=== PATIENT | female | born 1985 | race Caucasian/White ===

== ENCOUNTER → 2016-07-15 | Outpatient (CLI) | payer BC | END | disposition home or self-care (01) | LOC: LABMAIN 14:32 | PROVIDERS: ATTEND Obstetrics & Gynecology | DX: Z53.9 Procedure and treatment not carried out, unspecified reason (principal) ==

== ENCOUNTER → 2016-07-17 | Outpatient (CLI) | payer BC ==
[2016-07-17 16:05] LABS: CH 33.7; CHCM 35.3; HCT 38.5 % (34.0-46.0); HDW 3.06; HGB 13.2 gm/dL (11.4-16.0); MCHC 34.3 g/dL (31.0-37.0); MCV 96.2 fL (80.0-100.0); Mean Platelet Volume 7.1; RDW 14.1 % (11.5-15.5); WBC 11.5 k/uL (3.8-10.6)
== END | disposition home or self-care (01) ==
LOC: LABWHC1 14:30
PROVIDERS: ATTEND Obstetrics & Gynecology
DX: Z34.92 Encounter for supervision of normal pregnancy, unspecified, second trimester (principal); Z3A.00 Weeks of gestation of pregnancy not specified
CPT/HCPCS: 36415; 82950; 85027

== ENCOUNTER → 2016-09-13 | Outpatient (CLI) | payer BC ==
--- NOTE | 2016-09-13 16:46 | US ---
EXAMINATION TYPE: US OB anatomy transabd DATE OF EXAM: 09/13/2016 3:49 PM COMPARISON: No previous HISTORY: O36.63X0 Large for dates LGA, 2, para 1 TECHNIQUE: Transabdominal (TA) EXAM MEASUREMENTS: GESTATIONAL AGE / DATING Physician Established: (35 weeks/1 days) EDC: 10/17/2016 Dates by LMP: Unknown Dates by First Scan: No previous here Dates by Current Scan for: (34 weeks/4 days) EDC: 10/21/2016 SURVEY IUP: Single PLACENTA: Fundal PREVIA: No previa ARUNA: 13.3 cm Normal CERVICAL LENGTH (transabdominal: norm > 3.0cm): 4.1 cm BIOMETRY PRESENTATION: Vertex LIE: Oblique BPD: 8.6 cm 34 weeks / 5 days HC: 30.9 cm 34 weeks / 4 days AC: 30.8 cm 34 weeks / 5 days FL: 6.9 cm 35 weeks / 3 days ESTIMATED WEIGHT IN GRAMS: 2536 grams ESTIMATED WEIGHT IN LBS/OZS: 5 lbs. 9 oz. WEIGHT PERCENTAGE BASED ON ESTABLISHED DATE: 39 % HC/AC: 1.00 Normal FL/AC: 22.37 Normal HEART RATE: 142 bpm RHYTHM: Normal ANATOMY SEEN (within normal limits): Midline Falx Cavus Septi Pellucidi Outflow tracts: RVOT Stomach Situs Nose / Lips Kidneys (bilateral) Bladder Three Vessel Cord Longitudinal Spine Transverse Spine ANATOMY NOT SEEN: Due to advanced age * Lateral Vent (< 1 cm) cm * Cisterna Magna (< 1.1 cm) cm * Nuchal Fold (< 0.6 cm) cm * Cerebellum (varies with age) cm Choroid Plexus (bilateral) Four Chamber Heart Outflow Tracts: LVOT Diaphragm Cord Insert Arms (bilateral) Legs (bilateral) IMPRESSION: Viable single IUP measuring 34 weeks 4 days with a heart rate of 142bpm and an estimated delivery edilberto e of 10/21/2016
== END | disposition home or self-care (01) ==
LOC: RADUSWWP 15:09
PROVIDERS: ATTEND Obstetrics & Gynecology
DX: O36.63X0 Maternal care for excessive fetal growth, third trimester, not applicable or unspecified (principal); Z3A.34 34 weeks gestation of pregnancy
CPT/HCPCS: 76811

== ENCOUNTER 2016-10-17 05:48 | Inpatient (IN) | payer BC ==
[2016-10-17] MEDS: LACTATED RINGERS 1,000 ML IV SCH ×3 (06:00→17:38)
[2016-10-17] MEDS ORDERED: LIDOCAINE 1% (PF) 10 MG/ML (30 ML SDV) SQ PRN (06:05)
[2016-10-17] MEDS ORDERED: METHYLERGONOVINE 0.2 MG/ML 1 ML AMP IM PRN (06:05)
[2016-10-17] MEDS ORDERED: OXYTOCIN 10 UNIT/ML 1 ML VIAL IM PRN (06:05)
[2016-10-17] MEDS ORDERED: TERBUTALINE 1 MG/ML VIAL SQ PRN (06:05)
[2016-10-17] MEDS ORDERED: CARBOPROST TROMETHAMINE 250 MCG/ML 1 ML AMP IM PRN (06:05)
[2016-10-17 06:21] VITALS: BMI 36.3
--- NOTE | 2016-10-17 06:23 | P.HPOB ---
History of Present Illness H&P Date: 10/17/16 Chief Complaint: Patient is requesting induction of labor This patient is a pleasant 31-year-old 2 para 1 female estimated date of confinement 10/17/2016 estimated gestational age 40-0/7 weeks who presents to labor and delivery for requested induction of labor. Patient's care has been uncomplicated. Patient is uncomfortable now wishes to proceed with delivery at this time. Review of Systems Constitutional: Denies chills, Denies fever Ears, nose, mouth and throat: Denies headache, Denies sore throat Cardiovascular: Denies chest pain, Denies shortness of breath Respiratory: Denies cough Gastrointestinal: Reports heartburn Genitourinary: Reports Menstruation: Reports amenorrhea Musculoskeletal: Denies myalgias Integumentary: Denies pruritus, Denies rash Neurological: Denies numbness, Denies weakness Past Medical History Additional Past Medical History / Comment(s): Patient has a history of migraine headaches. History of Any Multi-Drug Resistant Organisms: None Reported Past Surgical History: Orthopedic Surgery Additional Past Surgical History / Comment(s): Patient has had sinus surgery, and reconstruction surgery of her right knee Past Anesthesia/Blood Transfusion Reactions: No Reported Reaction Past Psychological History: No Psychological Hx Reported Smoking Status: Former smoker Past Alcohol Use History: None Reported Past Drug Use History: None Reported Medications and Allergies Allergies Allergy/AdvReac Type Severity Reaction Status Date / Time Latex, Natural Rubber Allergy Itching Verified 10/17/16 06:05 Exam - Vital Signs Vital signs: Intake and Output 10/16/16 10/16/16 10/17/16 14:59 22:59 06:59 Other: Weight 102.058 kg Patient Weight 10/17/16 06:59 Weight 102.058 kg - OBG Physical Exam Abdomen: bowel sounds normal, no diffuse tenderness, no bruit present, no guarding noted, no hepatomegaly, no splenomegaly, no mass Vulva: both: normal Vagina: normal moisture, no discharge Cervix: Cervix is 2-3 cm dilated 50% effaced. Cervix: no lesion, no discharge Uterus: enlarged (Fundal height is consistent with a term .) Results blood work shows she is O positive, rubella immune, RPR nonreactive, HIV nonreactive, hepatitis B is negative, Glucola was normal, ultrasounds have been normal, group B strep was negative Assessment and Plan (1) Third trimester Narrative/Plan: This is a pleasant 31-year-old 2 para 1 female 40-0/7 weeks gestation who presents to labor and delivery for requested induction of labor. Plan is induction of labor and anticipate vaginal delivery. Status: Acute (2) Elective induction of labor planned Status: Acute
[2016-10-17 06:41] LABS: Basophils % (A) 0 %; CH 34.1; CHCM 36.9; Eosinophils # (A) 0.1 k/uL (0-0.7); Eosinophils % (A) 1 %; HCT 40.3 % (34.0-46.0); HDW 3.12; HGB 14.4 gm/dL (11.4-16.0); Luc # (Auto) 0.15; Luc % (Auto) 2; Lymphocytes # (A) 1.9 k/uL (1.0-4.8); Lymphocytes % (A) 22 %; MCH 33.2 pg (25.0-35.0); MCHC 35.7 g/dL (31.0-37.0); MCV 93.1 fL (80.0-100.0); Mean Platelet Volume 7.1; Monocytes # (A) 0.4 k/uL (0-1.0); Monocytes % (A) 5 %; Neutrophils % (A) 70 %; RBC 4.33 m/uL (3.80-5.40); RDW 13.2 % (11.5-15.5); WBC 8.6 k/uL (3.8-10.6); WBC (Perox) 8.43
[2016-10-17] MEDS: OXYTOCIN 20 UNITS/1000 ML NS 1,000 ML IV SCH ×2 (06:45→20:04)
--- NOTE | 2016-10-17 06:49 | P.PNOBGPC ---
Subjective - Subjective Patient reports: Reports appetite normal, Reports voiding normally, Reports pain well controlled, Reports ambulating normally [place]: doing well Objective - Vital Signs Latest vital signs: Vital Signs Temp Pulse Resp BP 10/17/16 06:04 97.4 F L 96 16 132/71 Intake and Output 10/16/16 10/16/16 10/17/16 14:59 22:59 06:59 Other: Weight 102.058 kg Patient Weight 10/17/16 06:59 Weight 102.058 kg - Exam Lungs: bilateral: normal Chest: Normal S1, Normal S2 Extremities: Present: normal Abdomen: Present: normal appearance, soft. Absent: distention, tenderness Incision: Present: normal, dry, intact Uterus: Present: normal, firm Assessment and Plan (1) Third trimester Narrative/Plan: Post operative day #1. Patient is resting without complaints. Vital signs are stable and she is afebrile. Her incision is intact and dry. Plan today is to check a CBC, encouraged patient to ambulate, allow the patient to shower, and continue routine postoperative care. Current Visit: Yes Status: Acute Code(s): Z33.1 - STATE, INCIDENTAL SNOMED Code(s): 80688680 (2) Elective induction of labor planned Current Visit: Yes Status: Acute Code(s): PVG3462 - SNOMED Code(s): 351274169
[2016-10-17] MEDS ORDERED: BUTORPHANOL 1 MG/ML 1 ML VIAL IV PRN (15:24)
[2016-10-17] MEDS ORDERED: fentaNYL (PF) 50 MCG/ML 5 ML AMP ONE (17:09)
[2016-10-17] MEDS ORDERED: BUPIVACAINE (PF) 0.25% 30 ML VIAL ONE (17:09)
[2016-10-17] MEDS ORDERED: SODIUM CHLORIDE 0.9% 100 ML BAG ONE (17:09)
--- NOTE | 2016-10-17 19:24 | P.PROBDLV ---
Vaginal Delivery Note - . Vaginal Delivery Note: Normal vaginal delivery viable male infant Apgars 9 and 10 delivery time is 1914 hrs. Please see dictated H&P for intimate details of this patient's admission. Brief summary this is a 31-year-old 2 para 1 female 40-0/7 weeks gestation who is admitted to labor and delivery for elective induction of labor. She was 3 cm dilated has artificial rupture membranes for clear fluid. Labor is induced with Pitocin per protocol. Patient ambulates she then becomes uncomfortable and received one dose of intrapartum Stadol. She progresses to 5 cm and then does request an epidural for pain control. Patient thereafter quickly gets to complete pushes the head to the perineum. Posterior perineum is supported we have controlled delivery of the 's head over the intact perineum. Mouth and nares are bulb suctioned. There is a nuchal cord which is easily reduced. With gentle downward traction we have delivery the anterior and posterior shoulder and rest this infant's body. This is a vigorous viable male infant Apgars are 9 and 10 delivery time is 1910 hrs. After delivery of the the umbilical cord is doubly clamped and cut appears to be trivascular. The placenta is then spontaneously delivered intact. Estimated blood loss is 100 mL. There is no lacerations and no repair. Infant and mother are stable delivery room. All counts are correct 3. There are no complications.
[2016-10-17] MEDS ORDERED: BENZOCAINE/MENTHOL SPRAY 1 GM/SPRAY AEROSOL TOPICAL PRN (20:00)
[2016-10-17] MEDS ORDERED: diphenhydrAMINE 25 MG CAP PO PRN (20:00)
[2016-10-17] MEDS ORDERED: ACETAMINOPHEN TAB 325 MG TAB PO PRN (20:00)
[2016-10-17] MEDS ORDERED: ZOLPIDEM 5 MG TAB PO PRN (20:00)
[2016-10-17] MEDS ORDERED: Acetaminophen-Codeine 300-30mg TAB PO PRN (20:00)
[2016-10-17] MEDS ORDERED: BISACODYL 10 MG SUPP RECTAL PRN (20:00)
[2016-10-17] MEDS ORDERED: diphenhydrAMINE 50 MG/ML 1 ML VIAL IVP PRN (20:00)
[2016-10-17] MEDS ORDERED: HYDROCORTISONE 2.5% RECTAL CREAM 30 GM TUBE RECTAL PRN (20:00)
[2016-10-17] MEDS ORDERED: SIMETHICONE 80 MG CHEWABLE PO PRN (20:00)
[2016-10-17] MEDS ORDERED: WITCH HAZEL 1 EACH MED..PAD TOPICAL PRN (20:00)
[2016-10-17] MEDS ORDERED: LANOLIN CREAM 5 GM TUBE TOPICAL PRN (20:00)
[2016-10-17] MEDS: SENNOSIDES-DOCUSATE SODIUM 1 EACH TAB PO SCH (21:09)
--- NOTE | 2016-10-18 05:49 | P.PNOBGVD ---
Subjective - Subjective Patient reports: Reports appetite normal, Reports voiding normally, Reports pain well controlled, Reports ambulating normally : doing well Objective - Latest Vital Signs Latest vital signs: Vital Signs Temp Pulse Resp BP 10/18/16 04:00 98.2 F 59 L 16 124/80 10/18/16 00:00 98.1 F 68 16 125/87 10/17/16 21:15 98.5 F 74 16 115/55 10/17/16 20:45 77 16 123/72 10/17/16 20:15 61 16 119/65 10/17/16 20:00 68 16 111/64 10/17/16 19:45 80 16 111/59 10/17/16 19:30 98.6 F 82 16 135/67 10/17/16 19:15 87 16 134/66 10/17/16 06:04 97.4 F L 96 16 132/71 Intake and Output 10/17/16 10/17/16 10/18/16 14:59 22:59 06:59 Intake Total 1000 1039.95 Output Total 100 Balance 1000 939.95 Intake: IV 1000 1000 Lactated Ringers 1,000 ml 1000 1000 @ 125 mls/hr IV .Q8H PAM Rx#:[id number] Intake, IV Titration 39.95 Amount Oxytocin 20 Units/1000 ml 39.95 Ns 1,000 ml @ 1 MILLIUNIT/MIN 3 mls/hr IV .Q24H PAM Rx#:[id number] Output: Estimated Blood Loss 100 Other: # Voids 1 - Exam Lungs: bilateral: normal Chest: Normal S1, Normal S2 Extremities: Present: normal Abdomen: Present: normal appearance, soft Uterus: Present: normal, firm Assessment and Plan (1) Third trimester Narrative/Plan: day #1. Patient is resting without complaints and wishes to go home. Vital signs are stable and she is afebrile. Uterus is firm nontender she 's having normal lochia. My impression this is a normal course. Plan is to continue routine care discharge home later today. Current Visit: Yes Status: Acute Code(s): Z33.1 - STATE, INCIDENTAL SNOMED Code(s): 44259175 (2) Elective induction of labor planned Current Visit: Yes Status: Acute Code(s): SVO7679 - SNOMED Code(s): 793100933
--- NOTE | 2016-10-18 05:51 | P.DS ---
Providers Date of admission: 10/17/16 05:48 Expected date of discharge: 10/18/16 Attending physician: Wily Schwab Primary care physician: Pillo Barbosa - Discharge Diagnosis(es) (1) Third trimester Current Visit: Yes Status: Acute (2) Elective induction of labor planned Current Visit: Yes Status: Acute Hospital Course: Please see dictated H&P for intimate details of this patient's admission. Brief summary this is a pleasant 31-year-old 2 para 1 female 40 weeks gestation admitted for elective induction of labor. Patient goes on to have a vaginal delivery viable male infant. Please see dictated delivery note. On day #1 patient without complaints and she wishes to go home. Patient 's felt to be stable for discharge home follow up with me in 6 weeks. Procedures: Induction of labor and normal vaginal delivery. Patient Condition at Discharge: Good Plan - Discharge Summary New Discharge Prescriptions: Acetaminophen-Codeine 300-30mg [Tylenol w/codeine #3] 1 - 2 each PO Q4HR PRN # 30 tab PRN Reason: Mild Pain exceeding Tylenol Ibuprofen [Motrin] 600 mg PO Q6HR PRN #40 tab PRN Reason: Mild Pain Or Fever >= 100.5 Discharge Medication List Acetaminophen-Codeine 300-30mg [Tylenol w/codeine #3] 1 - 2 each PO Q4HR PRN # 30 tab 10/18/16 [Rx] Ibuprofen [Motrin] 600 mg PO Q6HR PRN #40 tab 10/18/16 [Rx] Follow up Appointment(s)/Referral(s): Wily Schwab MD [STAFF PHYSICIAN] - 6 Weeks Patient Instructions/Handouts: Vaginal Delivery (DC) Activity/Diet/Wound Care/Special Instructions: No intercourse or anything per vagina for 6 weeks. Please call if any fever, chills, excessive vaginal bleeding, and/or abdominal pain. Discharge Disposition: HOME SELF-CARE
[2016-10-18] MEDS: Acetaminophen-Codeine 300-30mg TAB PO PRN ×3 (07:48→21:06)
[2016-10-18] MEDS: SENNOSIDES-DOCUSATE SODIUM 1 EACH TAB PO SCH ×2 (07:49→19:27)
[2016-10-18] MEDS: IBUPROFEN 600 MG TAB PO PRN ×2 (12:16→19:27)
[2016-10-18 20:46] VITALS: BP 138/80; PULSE 86; RESP 18; TEMP 98
== END 2016-10-18 23:00 | disposition home or self-care (01) | DRG 775 ==
LOC: 4FBP 05:48
PROVIDERS: ADMIT Obstetrics & Gynecology; ATTEND Obstetrics & Gynecology
PROC: 10907ZC Drainage of Amniotic Fluid, Therapeutic from Products of Conception, Via Natural or Artificial Opening (ICD-10-PCS; principal; 2016-10-17)
PROC: 00HU33Z Insertion of Infusion Device into Spinal Canal, Percutaneous Approach (ICD-10-PCS; principal; 2016-10-17)
PROC: 3E033VJ Introduction of Other Hormone into Peripheral Vein, Percutaneous Approach (ICD-10-PCS; principal; 2016-10-17)
PROC: 3E0R3CZ (ICD-10-PCS; principal; 2016-10-17)
PROC: 10E0XZZ Delivery of Products of Conception, External Approach (ICD-10-PCS; principal; 2016-10-17)
DX: O48.0 Post-term pregnancy (principal); O69.81X0 Labor and delivery complicated by cord around neck, without compression, not applicable or unspecified; Z91.040 Latex allergy status; Z37.0 Single live birth; Z87.891 Personal history of nicotine dependence; Z3A.40 40 weeks gestation of pregnancy
CPT/HCPCS: 85025; 88307

== ENCOUNTER → 2021-02-23 | Outpatient (CLI) | payer BC ==
[2021-02-23 10:40] LABS: HCT 38.2 % (34.0-46.0); HGB 12.5 gm/dL (11.4-16.0); MCH 29.4 pg (25.0-35.0); MCHC 32.9 g/dL (31.0-37.0); MCV 89.5 fL (80.0-100.0); Mean Platelet Volume 7.3; Platelet Count 340 k/uL (150-450); RBC 4.26 m/uL (3.80-5.40); WBC 12.8 k/uL (3.8-10.6)
[2021-02-23 16:28] LABS: Total Eosinophil Count 161 #EOS/uL (150-300)
[2021-02-24 03:15] LABS: Immunoglobulin E 1.09 IU/mL (0.00-114.00)
[2021-02-24 03:23] LABS: Alternaria alternata IgE <0.10 kU/L
[2021-02-24 03:26] LABS: Red Top (Bentgrass) IgE <0.10 kU/L
[2021-02-24 03:27] LABS: Birch IgE <0.10 kU/L; Elm IgE <0.10 kU/L; Maple (Box Elder) IgE <0.10 kU/L; Oak IgE <0.10 kU/L; Ragweed,Common IgE <0.10 kU/L
[2021-02-24 03:29] LABS: Aspergillus fumagatus IgE <0.10 kU/L; Cladosporian herbarum IgE <0.10 kU/L; Cockroach IgE <0.10 kU/L; Dog Dander IgE <0.10 kU/L
[2021-02-24 03:30] LABS: Cat Epith & Dander IgE <0.10 kU/L; Dermato. farinae IgE <0.10 kU/L
== END | disposition home or self-care (01) ==
LOC: LABWHC1 09:54
PROVIDERS: ATTEND Internal Medicine
DX: R05 Cough (principal)
CPT/HCPCS: 36415; 82785; 85008; 85027; 86003

== ENCOUNTER → 2022-09-13 | Outpatient (CLI) | payer OTHER | END | disposition home or self-care (01) | LOC: LABWHC1 11:05 | PROVIDERS: ATTEND Family Medicine | DX: M25.569 Pain in unspecified knee (principal) ==

== ENCOUNTER → 2022-09-13 | Outpatient (CLI) | payer OTHER ==
--- NOTE | 2022-09-13 13:13 | XR ---
EXAMINATION TYPE: XR knee complete bilateral DATE OF EXAM: 09/13/2022 12:13 PM INDICATION: Patient age:Female; 37 years old; Reason for study: M25.561 M25.562; [facility]. COMPARISON: None. TECHNIQUE: Both knees are examined in frontal, lateral, and oblique projections. FINDINGS: No acute fracture or dislocation. No specific soft tissue swelling. Small left suprapatel lar joint effusion. Post surgical changes with hardware involving the proximal right tibia. IMPRESSION: 1. No acute osseous pathology. 2. Small left suprapatellar joint effusion. 3. Postsurgical changes of the right knee.
== END | disposition home or self-care (01) ==
LOC: RADXRMAIN 11:57
PROVIDERS: ATTEND Family Medicine
DX: M25.561 Pain in right knee (principal); M25.562 Pain in left knee; M25.462 Effusion, left knee

== ENCOUNTER 2022-10-19 06:12 | Inpatient (IN) | payer OTHER ==
[2022-10-19] MEDS ORDERED: LORazepam 2 MG/ML INJ IM STA (06:14)
[2022-10-19] MEDS ORDERED: HALOPERIDOL LACTATE 5 MG/ML 1 ML VIAL IM STA ×4 (06:14→12:02)
[2022-10-19] MEDS ORDERED: diphenhydrAMINE 50 MG/ML 1 ML VIAL IM STA (06:14)
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
[2022-10-19 06:39] LABS: Basophils % (A) 0 %; Eosinophils # (A) 0.1 k/uL (0-0.7); Eosinophils % (A) 1 %; HCT 34.1 % (34.0-46.0); HGB 10.9 gm/dL (11.4-16.0); Hypochromasia Moderate; Lymphocytes # (A) 2.4 k/uL (1.0-4.8); Lymphocytes % (A) 20 %; MCH 27.3 pg (25.0-35.0); MCHC 31.8 g/dL (31.0-37.0); MCV 85.8 fL (80.0-100.0); Mean Platelet Volume 8.6; Monocytes # (A) 1.1 k/uL (0-1.0); Monocytes % (A) 9 %; Neutrophils # (A) 7.7 k/uL (1.3-7.7); Neutrophils % (A) 65 %; Platelet Count 321 k/uL (150-450); RBC 3.97 m/uL (3.80-5.40); RDW 15.6 % (11.5-15.5)
[2022-10-19 07:09] LABS: Acetaminophen <10.0 ug/mL; Alcohol <10 mg/dL; Salicylate <1.0 mg/dL
[2022-10-19 07:24] LABS: Amphetamine Screen,Urine Detected (NotDetected); Barbiturate Screen,Urine Not Detected (NotDetected); Benzodiazepines Screen,Urine Detected (NotDetected); Cocaine Screen,Urine Not Detected (NotDetected); Methadone Screen, Urine Not Detected (NotDetected); Opiate Screen,Urine Not Detected (NotDetected); Oxycodone Screen, Urine Not Detected (NotDetected); Phencyclidine Screen,Urine Not Detected (NotDetected); Tricyclic Antidepressant,Urine Not Detected (NotDetected); Urn Cannabinoid Scrn Not Detected (NotDetected)
[2022-10-19 07:28] LABS: Appearance,Urine Clear (Clear); Bilirubin,Urine Negative (Negative); Blood,Urine Trace (Negative); Color,Urine Yellow; Glucose,Urine (UA) Negative (Negative); Hyaline Casts,Urine 1 /lpf (0-2); Ketones,Urine Negative (Negative); Leukocyte Esterase,Urine Negative (Negative); Mucus,Urine Occasional /hpf; Nitrite,Urine Negative (Negative); PH, Urine 5.5 (5.0-8.0); Protein,Urine 1+ (Negative); RBC,Urine 1 /hpf (0-5); Squamous Epithelial Cell,Urine <1 /hpf (0-4); Urobilinogen,Urine <2.0 mg/dL (<2.0); WBC,Urine 1 /hpf (0-5)
[2022-10-19 12:42] LABS: ALT 26 U/L (4-34); AST 59 U/L (14-36); African American GFR (CKD) >90 (>60 ml/min/1.73 sqM); Albumin 4.3 g/dL (3.5-5.0); Alkaline Phosphatase 98 U/L (38-126); Anion Gap 11 mmol/L; Blood Urea Nitrogen 14 mg/dL (7-17); Calcium 8.8 mg/dL (8.4-10.2); Carbon Dioxide 22 mmol/L (22-30); Chloride 112 mmol/L (98-107); Glucose 90 mg/dL (74-99); Non-African American GFR(CKD) >90 (>60 ml/min/1.73 sqM); Phosphorus 3.2 mg/dL (2.5-4.5); Sodium 145 mmol/L (137-145); Total Bilirubin 0.5 mg/dL (0.2-1.3)
[2022-10-19] MEDS ORDERED: MAGNESIUM HYDROXIDE 2,400 MG/10 ML CUP PO PRN (20:29)
[2022-10-19] MEDS ORDERED: MAG HYDROX/AL HYDROX/SIMETH 30 ML CUP PO PRN (20:29)
[2022-10-19] MEDS ORDERED: ACETAMINOPHEN TAB 325 MG TAB PO PRN (20:29)
[2022-10-19] MEDS ORDERED: diphenhydrAMINE 50 MG CAP PO PRN (20:31)
[2022-10-19] MEDS ORDERED: LORazepam 2 MG/ML INJ IM PRN (20:31)
[2022-10-19] MEDS ORDERED: HALOPERIDOL LACTATE 5 MG/ML 1 ML VIAL IM PRN (20:31)
[2022-10-19] MEDS ORDERED: diphenhydrAMINE 50 MG/ML 1 ML VIAL IM PRN (20:31)
[2022-10-20] MEDS: NICOTINE 14MG/24HR PATCH TRANSDERM SCH (09:51)
--- NOTE | 2022-10-20 13:20 | P.HP ---
Psychiatric H&P - . H&P Date: 10/20/22 History & Physical: Allergies Allergy/AdvReac Type Severity Reaction Status Date / Time Latex, Natural Rubber Allergy Itching Verified 10/19/22 11:07 Vital Signs Temp 97.9 F 10/19/22 23:13 Pulse 81 10/19/22 23:13 Resp 17 10/19/22 23:13 BP 139/77 10/19/22 23:13 Pulse Ox 99 10/19/22 23:13 FiO2 Intake & Output 10/19/22 10/20/22 10/20/22 18:59 06:59 18:59 Weight 83.007 kg Laboratory Last Values WBC 12.0 k/uL (3.8-10.6) H 10/19/22 06:32 RBC 3.97 m/uL (3.80-5.40) 10/19/22 06:32 Hgb 10.9 gm/dL (11.4-16.0) L 10/19/22 06:32 Hct 34.1 % (34.0-46.0) 10/19/22 06:32 MCV 85.8 fL (80.0-100.0) 10/19/22 06:32 MCH 27.3 pg (25.0-35.0) 10/19/22 06:32 MCHC 31.8 g/dL (31.0-37.0) 10/19/22 06:32 RDW 15.6 % (11.5-15.5) H 10/19/22 06:32 Plt Count 321 k/uL (150-450) 10/19/22 06:32 MPV 8.6 10/19/22 06:32 Neutrophils % 65 % 10/19/22 06:32 Lymphocytes % 20 % 10/19/22 06:32 Monocytes % 9 % 10/19/22 06:32 Eosinophils % 1 % 10/19/22 06:32 Basophils % 0 % 10/19/22 06:32 Neutrophils # 7.7 k/uL (1.3-7.7) 10/19/22 06:32 Lymphocytes # 2.4 k/uL (1.0-4.8) 10/19/22 06:32 Monocytes # 1.1 k/uL (0-1.0) H 10/19/22 06:32 Eosinophils # 0.1 k/uL (0-0.7) 10/19/22 06:32 Basophils # 0.0 k/uL (0-0.2) 10/19/22 06:32 Manual Slide Review Performed 10/19/22 06:32 Hypochromasia Moderate 10/19/22 06:32 Sodium 145 mmol/L (137-145) 10/19/22 11:50 Potassium 4.0 mmol/L (3.5-5.1) 10/19/22 11:50 Chloride 112 mmol/L (98-107) H 10/19/22 11:50 Carbon Dioxide 22 mmol/L (22-30) 10/19/22 11:50 Anion Gap 11 mmol/L 10/19/22 11:50 BUN 14 mg/dL (7-17) 10/19/22 11:50 Creatinine 0.60 mg/dL (0.52-1.04) 10/19/22 11:50 Est GFR (CKD-EPI)AfAm >90 (>60 ml/min/1.73 sqM) 10/19/22 11:50 Est GFR (CKD-EPI)NonAf >90 (>60 ml/min/1.73 sqM) 10/19/22 11:50 Glucose 90 mg/dL (74-99) 10/19/22 11:50 Calcium 8.8 mg/dL (8.4-10.2) 10/19/22 11:50 Phosphorus 3.2 mg/dL (2.5-4.5) 10/19/22 11:50 Magnesium 2.0 mg/dL (1.6-2.3) 10/19/22 11:50 Total Bilirubin 0.5 mg/dL (0.2-1.3) 10/19/22 11:50 AST 59 U/L (14-36) H 10/19/22 11:50 ALT 26 U/L (4-34) 10/19/22 11:50 Alkaline Phosphatase 98 U/L (38-126) 10/19/22 11:50 Total Protein 7.0 g/dL (6.3-8.2) 10/19/22 11:50 Albumin 4.3 g/dL (3.5-5.0) 10/19/22 11:50 TSH 2.790 mIU/L (0.465-4.680) 10/19/22 11:50 Urine Color Yellow 10/19/22 06:32 Urine Appearance Clear (Clear) 10/19/22 06:32 Urine pH 5.5 (5.0-8.0) 10/19/22 06:32 Ur Specific [place] 1.030 (1.001-1.035) 10/19/22 06:32 Urine Protein 1+ (Negative) H 10/19/22 06:32 Urine Glucose (UA) Negative (Negative) 10/19/22 06:32 Urine Ketones Negative (Negative) 10/19/22 06:32 Urine Blood Trace (Negative) H 10/19/22 06:32 Urine Nitrite Negative (Negative) 10/19/22 06:32 Urine Bilirubin Negative (Negative) 10/19/22 06:32 Urine Urobilinogen <2.0 mg/dL (<2.0) 10/19/22 06:32 Ur Leukocyte Esterase Negative (Negative) 10/19/22 06:32 Urine RBC 1 /hpf (0-5) 10/19/22 06:32 Urine WBC 1 /hpf (0-5) 10/19/22 06:32 Ur Squamous Epith Cells <1 /hpf (0-4) 10/19/22 06:32 Hyaline Casts 1 /lpf (0-2) 10/19/22 06:32 Urine Mucus Occasional /hpf (None) H 10/19/22 06:32 Urine HCG, Qual Not Detected (Not Detectd) 10/19/22 06:32 Salicylates <1.0 mg/dL 10/19/22 06:32 Urine Opiates Screen Not Detected (NotDetected) 10/19/22 06:32 Ur Oxycodone Screen Not Detected (NotDetected) 10/19/22 06:32 Urine Methadone Screen Not Detected (NotDetected) 10/19/22 06:32 Ur Propoxyphene Screen Detected (NotDetected) H 10/19/22 06:32 Acetaminophen <10.0 ug/mL 10/19/22 06:32 Ur Barbiturates Screen Not Detected (NotDetected) 10/19/22 06:32 U Tricyclic Antidepress Not Detected (NotDetected) 10/19/22 06:32 Ur Phencyclidine Scrn Not Detected (NotDetected) 10/19/22 06:32 Ur Amphetamines Screen Detected (NotDetected) H 10/19/22 06:32 U Methamphetamines Scrn Not Detected (NotDetected) 10/19/22 06:32 U Benzodiazepines Scrn Detected (NotDetected) H 10/19/22 06:32 Urine Cocaine Screen Not Detected (NotDetected) 10/19/22 06:32 U Marijuana (THC) Screen Not Detected (NotDetected) 10/19/22 06:32 Serum Alcohol <10 mg/dL 10/19/22 06:32 Coronavirus (PCR) Not Detected (Not Detectd) 10/19/22 18:19 10/20/22 13:14 IDENTIFYING DATA: Patient is a 37-year-old female, currently lives with her and 1 son in a house, she is unemployed. HPI: Patient presented to the hospital yesterday by the police. Patient apparently was aggressive combative with medical staff and was petitioned by fiscal officer. Patient received several doses of Haldol prn injection and also Ativan and Benadryl in the ER and needed several restraints due to agitation yelling and aggression. Patient was admitted involuntarily to the mental health unit and apparently has no psychiatric history. Patient was seen wandering the hallways and was agreeable to seek to rfp writer today. She was fairly constricted in her affect and states that she is feeling anxious and scared of being on the unit. She states that she does not remember much from yesterday. She claims that the last thing she remembers is going to her parents for a sleepover with her son. She states that she has several bruises all over her body and is in some pain. She claims that she has been having an increase in stress lately due to fighting at home with her and also a ongoing possible foreclosure of her home. She states that she feels a bit disoriented and anxious today. Denying any depression. She is denying not endorsing any paranoia. States that her sleep for the past several days has been down. Her appetite has also been fair. Patient is denying any suicidal or homicidal ideations intent or plan. Denying any auditory or visual hallucinations. Patient admits to using phenibute and kratom regularly as it helps her with "nerve pain" and also anxiety. she states that she smokes nicotine vape regularly. Denies any other recreational drug use. PAST PSYCHIATRIC HISTORY: Patient states that she has no significant psychiatric history however is currently on Lexapro 20 mg due to depression and anxiety. Patient denies any previous psychiatric hospitalizations. Patient denies any psychiatric outpatient follow-up. Patient denies any history of suicide attempts in the past. PMH:Past Medical History: No Reported History Additional Past Medical History / Comment(s): Patient has a history of migraine headaches. History of Any Multi-Drug Resistant Organisms: None Reported Past Surgical History: Orthopedic Surgery Additional Past Surgical History / Comment(s): Patient has had sinus surgery, and reconstruction surgery of her right knee Past Anesthesia/Blood Transfusion Reactions: No Reported Reaction Past Psychological History: No Psychological Hx Reported Past Alcohol Use History: None Reported Past Drug Use History: None Reported ALLERGIES: as per EMR CHEMICAL DEPENDENCY HISTORY: as per HPI FAMILY PSYCHIATRIC/SUBSTANCE USE HISTORY: denies SOCIAL HISTORY: Patient was born and raised in the [facility]. She claims that she completed high school and did some college. She states that she has 1 son, currently lives with her in a house. She claims that she went to detention several years ago for a breaking and entering charge. MENTAL STATUS EXAM: General Appearance: Patient appears to have several bruises over her arms and legs, mildly swollen face, stated age is alert, directable, and attempts to cooperate. Patient appears to have poor hygiene and grooming. Behavior: Patient is seated without any agitated behavior. Constricted and superficial. Evasive. Speech: Patient's speech is fluent and nonpressured. [place] Mood/Affect: Patient reports their mood is "anxious and scared", affect is congruent and constricted. Suicidality/Homicidality: Patient denies having any homicidal ideation intent or plan. Denies any suicidal ideations intent or plan Perceptions: Patient denies any visual hallucinations and denies any auditory hallucinations Though content/process: There is no evidence of any delusional thought content and thought process is linear and goal-directed. [place]. Minimizing. Memory and concentration: AOX3, grossly intact for the purposes of this session. Can spell "WORLD" backwards Judgment and insight: poor STRENGTHS/WEAKNESSES: strength is that patient is resilient. Weakness is that patient has poor judgment and is impulsive INTELLECT: average IMPRESSIONS: Psychosis unspecified, rule out secondary to psychoactive substances (kratom and phenibute) hx of depression and anxiety PLAN: -Patient is admitted under involuntary status to MHU for stabilization of psychiatric symptoms and safety. Patient has signed medication consent and is placed in patient's chart. A second certification was completed and along with petition will be filed for court. -Medications : Will start patient on paliperidone by mouth 3 mg daily at bedtime for mood stabilization/psychosis, continue home dose of Lexapro 20 mg daily for mood/anxiety. -Ativan and Haldol PRN for agitation/aggression -Patient was counselled on substance abuse and desired to cut back on use -Patient was informed of the risks, benefits and side effects of the medication and patient verbally consented to taking the medications. Patient signed med consent form and was placed in chart. -Internal Medicine consult to perform medical evaluation and physical. -NRT - nicotine patch -SW on board for discharge planning. Encourage patient to participate in groups to work on coping skills. Will await deferral and court date. 10/20/22 13:20
[2022-10-20] MEDS: ESCITALOPRAM 20 MG TAB PO SCH (13:44)
--- NOTE | 2022-10-20 14:08 | P.CONS ---
History of Present Illness - Reason for Consult Leukocytosis - History of Present Illness Patient is a 7-year-old female was admitted to psychiatry floor for aggressive and combative behavior at work place. Patient the urine drug screen is positive for benzodiazepines and amphetamine. Patient is quite a bit drowsy at this time patient was not sure why she is here. Patient does have leukocytosis without any evidence of infection clinically REVIEW OF SYSTEMS: CONSTITUTIONAL: No fever, no malaise, no fatigue. HEENT: No recent visual problems or hearing problems. Denied any sore throat. CARDIOVASCULAR: No chest pain, orthopnea, PND, no palpitations, no syncope. PULMONARY: No shortness of breath, no cough, no hemoptysis. GASTROINTESTINAL: No diarrhea, no nausea, no vomiting, no abdominal pain. NEUROLOGICAL: No headaches, no weakness, no numbness. HEMATOLOGICAL: Denies any bleeding or petechiae. GENITOURINARY: Denies any burning micturition, frequency, or urgency. MUSCULOSKELETAL/RHEUMATOLOGICAL: Denies any joint pain, swelling, or any muscle pain. ENDOCRINE: Denies any polyuria or polydipsia. The rest of the 14-point review of systems is negative. PHYSICAL EXAMINATION: GENERAL: The patient is drowsy and oriented x3, not in any acute distress. Well developed, well nourished. HEENT: Pupils are round and equally reacting to light. EOMI. No scleral icterus. No conjunctival pallor. Normocephalic, atraumatic. No pharyngeal erythema. No thyromegaly. CARDIOVASCULAR: S1 and S2 present. No murmurs, rubs, or gallops. PULMONARY: Chest is clear to auscultation, no wheezing or crackles. ABDOMEN: Soft, nontender, nondistended, normoactive bowel sounds. No palpable organomegaly. MUSCULOSKELETAL: No joint swelling or deformity. EXTREMITIES: No cyanosis, clubbing, or pedal edema. NEUROLOGICAL: Gross neurological examination did not reveal any focal deficits. SKIN: No rashes. Assessment and plan IV leukocytosis reactive secondary to agitation no further intervention is necessary clinically patient doesn't appear to have any infection -Acute psychosis management as per primary service -Depression Past Medical History Past Medical History: No Reported History Additional Past Medical History / Comment(s): Patient has a history of migraine headaches. History of Any Multi-Drug Resistant Organisms: None Reported Past Surgical History: Orthopedic Surgery Additional Past Surgical History / Comment(s): Patient has had sinus surgery, and reconstruction surgery of her right knee Past Anesthesia/Blood Transfusion Reactions: No Reported Reaction Smoking Status: Unknown if ever smoked Medications and Allergies Home Medications Medication Instructions Recorded Confirmed Type Albuterol Inhaler [Ventolin Hfa 2 puff INHALATION RT-Q6H PRN 10/19/22 10/19/22 History Inhaler] Cholecalciferol (Vitamin D3) 1,250 mcg PO WEEKLY 10/19/22 10/19/22 History [Decara (50,000 Iu)] Dextroamphetamine/Amphetamine 20 mg PO DAILY 10/19/22 10/19/22 History [Adderall] Escitalopram [Lexapro] 20 mg PO DAILY 10/19/22 10/19/22 History Kratom (Supplement) 1 dose PO DAILY PRN 10/19/22 10/19/22 History LORazepam [Ativan] 0.5 mg PO DAILY PRN 10/19/22 10/19/22 History Montelukast [Singulair] 10 mg PO DAILY 10/19/22 10/19/22 History Pseudoephedrine 12Hr [Sudafed 12 120 mg PO Q12HR PRN 10/19/22 10/19/22 History Hour] Allergies Allergy/AdvReac Type Severity Reaction Status Date / Time Latex, Natural Rubber Allergy Itching Verified 10/19/22 11:07 Physical Exam Vitals: Vital Signs Temp Pulse Pulse Resp BP BP Pulse Ox 10/19/22 23:13 97.9 F 81 17 139/77 99 10/19/22 20:01 84 18 127/68 95 10/19/22 19:35 80 16 125/77 96 10/19/22 17:09 82 17 132/73 95 10/19/22 14:16 65 18 124/77 100 Intake and Output 10/19/22 10/20/22 10/20/22 22:59 06:59 14:59 Other: Weight 83.007 kg Results CBC & Chem 7: 10/19/22 06:32 10/19/22 11:50
[2022-10-20] MEDS: NYSTATIN 100,000 UNIT/ML SUSP 500,000 UNIT/5 ML CUP PO SCH ×2 (17:21→20:07)
[2022-10-20] MEDS ORDERED: PALIPERIDONE 3 MG TAB.ER.24 PO SCH (21:00)
[2022-10-21] MEDS: NICOTINE 14MG/24HR PATCH TRANSDERM SCH (09:23)
[2022-10-21] MEDS: ESCITALOPRAM 20 MG TAB PO SCH (09:23)
[2022-10-21] MEDS: NYSTATIN 100,000 UNIT/ML SUSP 500,000 UNIT/5 ML CUP PO SCH ×4 (09:23→20:59)
--- NOTE | 2022-10-21 14:35 | P.PN ---
Progress Note - Text Progress Note Date: 10/21/22 Interval History: Patient was seen bedside this AM. She was observed to be reading the large book upon approach. Patient describes in detail the situation leading to hospitalization. She is quite defensive regarding her use of Kratom and Phenibut. She states that she uses Kratom regularly. She acknowledges that the use of substances that are stimulating can result in worsening her mental health. She endorses not having slept for days prior to hospitalization. However, she states that she slept well last night. She does not express true insight into her condition or her symptoms. She reports fair appetite and fair energy. She is fixated on discharge and asks if she might be able to go home Sunday. At this time patient denies any suicidal or homicidal ideations, intent or plan. Patient denies any auditory, visual hallucinations and denies any paranoia or delusions. Patient denies any side effects from the medications and has been compliant with meds. Mental Status Exam: General Appearance: Patient appears to have several bruises over her arms and legs, mildly swollen face, stated age is alert, directable, and attempts to cooperate. Patient appears to have poor hygiene and grooming. Behavior: Patient is seated without any agitated behavior. Constricted and superficial. Evasive. Speech: Patient's speech is fluent and nonpressured. [place] Mood/Affect: Patient reports their mood is "good", affect is congruent and constricted. Suicidality/Homicidality: Patient denies having any homicidal ideation intent or plan. Denies any suicidal ideation intent or plan Perceptions: Patient denies any visual hallucinations and denies any auditory hallucinations Though content/process: There is no evidence of any delusional thought content and thought process is linear and goal-directed. [place]. Minimizing. Memory and concentration: AOX3, grossly intact for the purposes of this session. Can spell "WORLD" backwards Judgment and insight: poor Assessment Psychosis unspecified, rule out secondary to psychoactive substances (kratom and phenibute) hx of depression and anxiety PLAN: -Patient is admitted under involuntary status to MHU for stabilization of psychiatric symptoms and safety. Patient has signed medication consent and is placed in patient's chart. A second certification was completed and along with petition will be filed for court. -Medications : Increase paliperidone by mouth to 6 mg daily at bedtime for mood stabilization/psychosis, continue home dose of Lexapro 20 mg daily for mood/anxiety. -Ativan and Haldol PRN for agitation/aggression -Patient was counselled on substance abuse and desired to cut back on use -Patient was informed of the risks, benefits and side effects of the medication and patient verbally consented to taking the medications. Patient signed med consent form and was placed in chart. -Internal Medicine consult to perform medical evaluation and physical. -NRT - nicotine patch -SW on board for discharge planning. Encourage patient to participate in groups to work on coping skills. Will await deferral and court date.
[2022-10-21] MEDS ORDERED: PALIPERIDONE 6 MG TAB.ER.24 PO SCH (21:00)
[2022-10-22] MEDS: LORazepam 1 MG TAB PO PRN ×2 (00:22→19:51)
[2022-10-22] MEDS: NICOTINE 14MG/24HR PATCH TRANSDERM SCH (04:54)
[2022-10-22] MEDS: ESCITALOPRAM 20 MG TAB PO SCH (09:02)
[2022-10-22] MEDS: NYSTATIN 100,000 UNIT/ML SUSP 500,000 UNIT/5 ML CUP PO SCH ×4 (09:02→19:51)
--- NOTE | 2022-10-22 14:45 | P.PN ---
Progress Note - Text Progress Note Date: 10/22/22 Interval History: Patient was seen bedside this AM. Patient appears to be somewhat more irritable today. However, she states that her mood is "fine ". She continues to have poor insight into her substance use. She states that though she has bruises on her body, they're not painful. She states that following receiving Invega, she noticed increased jitteriness last night leading to difficulty sleeping. She was agreeable with taking the Invega during the daytime instead. She reports fair appetite and fair energy. She is fixated on discharge and asks if she might be able to go home Sunday. At this time patient denies any suicidal or homicidal ideations, intent or plan. Patient denies any auditory, visual hallucinations and denies any paranoia or delusions. Patient denies any side effects from the medications and has been compliant with meds. Mental Status Exam: General Appearance: Patient appears to have several bruises over her arms and legs, mildly swollen face, stated age is alert, directable, and attempts to cooperate. Patient appears to have poor hygiene and grooming. Behavior: Patient is seated without any agitated behavior. Constricted and superficial. Evasive. Speech: Patient's speech is fluent and nonpressured. [place] Mood/Affect: Patient reports their mood is "fine", affect is irritable Suicidality/Homicidality: Patient denies having any homicidal ideation intent or plan. Denies any suicidal ideation intent or plan Perceptions: Patient denies any visual hallucinations and denies any auditory hallucinations Though content/process: There is no evidence of any delusional thought content and thought process is linear and goal-directed. [place]. Minimizing. Memory and concentration: AOX3, grossly intact for the purposes of this session. Can spell "WORLD" backwards Judgment and insight: poor Assessment Psychosis unspecified, rule out secondary to psychoactive substances (kratom and phenibute) hx of depression and anxiety PLAN: -Patient is admitted under involuntary status to MHU for stabilization of psychiatric symptoms and safety. Patient has signed medication consent and is placed in patient's chart. A second certification was completed and along with petition will be filed for court. -Medications : change paliperidone by mouth to 6 mg daily AM for mood stabilization/psychosis, continue home dose of Lexapro 20 mg daily for mood/anxiety. -Ativan and Haldol PRN for agitation/aggression -Patient was counselled on substance abuse and desired to cut back on use -Patient was informed of the risks, benefits and side effects of the medication and patient verbally consented to taking the medications. Patient signed med consent form and was placed in chart. -Internal Medicine consult to perform medical evaluation and physical. -NRT - nicotine patch -SW on board for discharge planning. Encourage patient to participate in groups to work on coping skills. Will await deferral and court date.
[2022-10-23] MEDS: PALIPERIDONE 6 MG TAB.ER.24 PO SCH (09:11)
[2022-10-23] MEDS: NICOTINE 14MG/24HR PATCH TRANSDERM SCH (09:11)
[2022-10-23] MEDS: ESCITALOPRAM 20 MG TAB PO SCH (09:11)
[2022-10-23] MEDS: NYSTATIN 100,000 UNIT/ML SUSP 500,000 UNIT/5 ML CUP PO SCH ×4 (09:11→20:58)
--- NOTE | 2022-10-23 14:42 | P.PN ---
Progress Note - Text Progress Note Date: 10/23/22 Interval History: Patient was seen [wandering the hallways] earlier and is currently on a one-to- one sitter for safety. Patient was seen sitting at the side of her bed and agreeable to speak to video game script writer today with the sitter present. Patient claims that she is "doing just fine" and stared blankly at video game script writer. She appeared to be fairly disorganized in her thought content and also thought process. She was rambling at times have loose associations. She also appeared to be fairly distracted when speaking and was looking through her belongings. She claims that her I does not hurt and does not have any visual disturbances. Claims that she is not sleeping well at nighttime. Has a fair appetite. Patient only answered some questions appropriately. At this time patient denies any suicidal or homical ideations, intent or plan. Patient denies any auditory, visual hallucinations . Patient denies any side effects from the medications and has been compliant with meds. Mental Status Exam: General Appearance: Patient appears to have several bruises over her arms and legs, mildly swollen face, stated age is alert, directable, and attempts to cooperate. Patient appears to have poor hygiene and grooming. Behavior: Patient is seated without any agitated behavior. Constricted. Bizarre Speech: Patient's speech is fluent and nonpressured. [place] rambling at times Mood/Affect: Patient reports their mood is "ok", affect is congruent and constricted. Suicidality/Homicidality: Patient denies having any homicidal ideation intent or plan. Denies any suicidal ideations intent or plan Perceptions: Patient denies any visual hallucinations and denies any auditory hallucinations Though content/process: [place]. Bizarre thought process. Rambling, loose associations. Memory and concentration: AOX3, grossly intact for the purposes of this session. Judgment and insight: poor IMPRESSIONS: Psychosis unspecified, rule out secondary to psychoactive substances (kratom and phenibute) hx of depression and anxiety PLAN: -Patient is admitted under involuntary status to MHU for stabilization of psychiatric symptoms and safety. Patient has signed medication consent and is placed in patient's chart. -Medications : Increase paliperidone by mouth 3 mg daily at bedtime + 6 mg daily for mood stabilization/psychosis, continue home dose of Lexapro 20 mg daily for mood/anxiety. -Ativan and Haldol PRN for agitation/aggression -NRT - nicotine patch -SW on board for discharge planning. Encourage patient to participate in groups to work on coping skills. Will await deferral and court hearing date.
[2022-10-23] MEDS: haloperidoL 5 MG TAB PO PRN (20:58)
[2022-10-23] MEDS ORDERED: PALIPERIDONE 3 MG TAB.ER.24 PO SCH (21:00)
[2022-10-23] MEDS: LORazepam 1 MG TAB PO PRN (23:25)
[2022-10-24] MEDS: haloperidoL 5 MG TAB PO PRN ×2 (02:36→10:01)
[2022-10-24] MEDS: NICOTINE 14MG/24HR PATCH TRANSDERM SCH (09:31)
[2022-10-24] MEDS: NYSTATIN 100,000 UNIT/ML SUSP 500,000 UNIT/5 ML CUP PO SCH ×3 (09:32→16:42)
[2022-10-24] MEDS: PALIPERIDONE 6 MG TAB.ER.24 PO SCH (09:32)
[2022-10-24] MEDS: ESCITALOPRAM 20 MG TAB PO SCH (09:32)
[2022-10-24] MEDS: LORazepam 1 MG TAB PO PRN (10:01)
--- NOTE | 2022-10-24 14:30 | P.PN ---
Progress Note - Text Progress Note Date: 10/24/22 Interval History: Patient was seen [wandering the hallways] with a one-to-one sitter for safety. Patient was reaching for door handles and appeared to be distracted and confused. The automotive service writer attempted to speak with patient however patient was not directable and was rambling, loose associations, disorganized thoughts. She appeared to be fairly distracted when speaking and a crouched down and started picking at the floor. She was not able to follow further directions or anterior any other questions today. Patient apparently has been taking medications however has been needing a lot of assistance with it. Mental Status Exam: General Appearance: Patient appears to have several bruises over her arms and legs, mildly swollen face, stated age is alert, directable, and attempts to cooperate. Patient appears to have poor hygiene and grooming. Behavior: Patient is wandering the hallways, Constricted. Bizarre. Responding to internal stimuli. Speech: Patient's speech is nonpressured. [place] rambling at times Mood/Affect: Unable to assess Suicidality/Homicidality: Patient denies having any homicidal ideation intent or plan. Denies any suicidal ideations intent or plan Perceptions: Patient denies any visual hallucinations and denies any auditory hallucinations Though content/process: [place]. Bizarre thought process. Rambling, loose associations. Memory and concentration: Unable to assess Judgment and insight: poor IMPRESSIONS: Psychosis unspecified, rule out secondary to psychoactive substances (kratom and phenibute) hx of depression and anxiety PLAN: -Patient is admitted under involuntary status to MHU for stabilization of psychiatric symptoms and safety. Patient has signed medication consent and is placed in patient's chart. -Medications : paliperidone by mouth 3 mg daily at bedtime + 6 mg daily for mood stabilization/psychosis, continue home dose of Lexapro 20 mg daily for mood/anxiety. added baclofen and will use as a taper to help with likely phenibut withdrawal. -Ativan and Haldol PRN for agitation/aggression -NRT - nicotine patch -SW on board for discharge planning. Encourage patient to participate in groups to work on coping skills. court hearing date scheduled for sunday
[2022-10-24] MEDS ORDERED: OLANZapine 7.5 MG TAB PO ONE (15:37)
[2022-10-24 18:14] LABS: Glucose,Whole Blood 114 mg/dL (70-110)
[2022-10-24 18:38] VITALS: BP 127/71; PULSE 91; RESP 16; TEMP 98
[2022-10-24 19:12] LABS: ALT 31 U/L (4-34); AST 30 U/L (14-36); African American GFR (CKD) >90 (>60 ml/min/1.73 sqM); Albumin 4.6 g/dL (3.5-5.0); Alkaline Phosphatase 71 U/L (38-126); Anion Gap 10 mmol/L; Blood Urea Nitrogen 21 mg/dL (7-17); Calcium 9.7 mg/dL (8.4-10.2); Carbon Dioxide 31 mmol/L (22-30); Chloride 97 mmol/L (98-107); Glucose 101 mg/dL (74-99); Non-African American GFR(CKD) >90 (>60 ml/min/1.73 sqM); Potassium 3.3 mmol/L (3.5-5.1); Sodium 138 mmol/L (137-145); Total Bilirubin 0.6 mg/dL (0.2-1.3); Total Protein 7.3 g/dL (6.3-8.2)
[2022-10-24 19:17] LABS: Basophils % (A) 0 %; Eosinophils # (A) 0.1 k/uL (0-0.7); Eosinophils % (A) 1 %; HCT 33.7 % (34.0-46.0); HGB 10.7 gm/dL (11.4-16.0); Hypochromasia Slight; Lymphocytes % (A) 19 %; MCH 26.1 pg (25.0-35.0); MCHC 31.8 g/dL (31.0-37.0); MCV 82.3 fL (80.0-100.0); Mean Platelet Volume 8.1; Monocytes # (A) 0.3 k/uL (0-1.0); Monocytes % (A) 5 %; Neutrophils # (A) 3.8 k/uL (1.3-7.7); Neutrophils % (A) 71 %; Platelet Count 329 k/uL (150-450); RBC 4.09 m/uL (3.80-5.40); RDW 15.9 % (11.5-15.5); WBC 5.4 k/uL (3.8-10.6)
--- NOTE | 2022-10-24 19:46 | P.DS ---
Providers Date of admission: 10/19/22 19:58 Expected date of discharge: 10/24/22 Attending physician: Jere Mccarty MD Consults: 10/19/22 20:29 Consult Physician Routine Consulting Provider: Genie Kamara Consult Reason/Comments: H&P Do you want consulting provider notified?: Yes, Notify in am Primary care physician: Bryan Yang - Discharge Diagnosis(es) (1) Unspecified psychosis Status: Acute Priority: High (2) History of depression Status: Acute Priority: Medium Hospital Course: Admission HPI: Admission note was completed by [bond writer] "Patient is a 37-year-old female, currently lives with her and 1 son in a house, she is unemployed. Patient presented to the hospital yesterday by the police. Patient apparently was aggressive combative with medical staff and was petitioned by intelligence officer. Patient received several doses of Haldol prn injection and also Ativan and Benadryl in the ER and needed several restraints due to agitation yelling and aggression. Patient was admitted involuntarily to the mental health unit and apparently has no psychiatric history. Patient was seen wandering the hallways and was agreeable to seek to bond writer today. She was fairly constricted in her affect and states that she is feeling anxious and scared of being on the unit. She states that she does not remember much from yesterday. She claims that the last thing she remembers is going to her parents for a sleepover with her son. She states that she has several bruises all over her body and is in some pain. She claims that she has been having an increase in stress lately due to fighting at home with her and also a ongoing possible foreclosure of her home. She states that she feels a bit disoriented and anxious today. Denying any depression. She is denying not endorsing any paranoia. States that her sleep for the past several days has been down. Her appetite has also been fair. Patient is denying any suicidal or homicidal ideations intent or plan. Denying any auditory or visual hallucinations. Patient admits to using phenibute and kratom regularly as it helps her with "nerve pain" and also anxiety. she states that she smokes nicotine vape regularly. Denies any other recreational drug use." Hospital course: Upon admission to the unit patient was [admitted involuntarily on a petition and certificate and a second certificate was completed and faxed with the courts]. Patient initially required several prns and restraints in the ER prior to being transferred to the MHU. Patient was compliant with the medications and denied any side effects throughout hospital course. Patient was fairly bizarre, disorganized and responding to internal stimuli while on the unit. She required 1:1 sitter. Patient was started on []paliperidone by mouth and increased her dose of 3 mg daily at bedtime +6 mg daily for mood stabilization/psychosis, she was resumed back on Lexapro 20 mg daily for mood/anxiety. Due to patient's consumption of kratom and phenibut, the psychosis was suspected to be likely related to the withdrawal from these subtances and patient was tried on baclofen. Patient became unstable medically, dyspneic and had a loss of control of her bladder, urinating on the floor and an A team was called. Due to patients deteroirating condition she was transferred off the psych unit and to the medical floors for further treatment. Mental status exam: Please refer to progress note by bond writer on 10/24 Impression: Psychosis unspecified, rule out secondary to psychoactive substance including kratom and phenibut History of depression Plan: -Patient will be transferred off of the mental health unit to the medical floors due to patient's deteriorating condition and unstable vital signs. Patient is likely becoming delirious due to possible underlying medical issue. -Hold off on psychotropic medications at this time. can use prolixin Po and IM PRNS up to 5 mg q6h for agitation/psychosis. hold off on ativan at this time. -psychiatry will continue to follow on the medical floors. Patient Condition at Discharge: Undetermined Plan - Discharge Summary New Discharge Prescriptions: No Action Dextroamphetamine/Amphetamine [Adderall] 20 mg PO DAILY LORazepam [Ativan] 0.5 mg PO DAILY PRN PRN Reason: Anxiety Kratom (Supplement) 1 dose PO DAILY PRN PRN Reason: Pain Cholecalciferol (Vitamin D3) [Decara (50,000 Iu)] 1,250 mcg PO WEEKLY Pseudoephedrine 12Hr [Sudafed 12 Hour] 120 mg PO Q12HR PRN PRN Reason: Congestion Albuterol Inhaler [Ventolin Hfa Inhaler] 2 puff INHALATION RT-Q6H PRN PRN Reason: Shortness Of Breath Montelukast [Singulair] 10 mg PO DAILY Escitalopram [Lexapro] 20 mg PO DAILY Discharge Medication List Albuterol Inhaler [Ventolin Hfa Inhaler] 2 puff INHALATION RT-Q6H PRN 10/19/22 [History] Cholecalciferol (Vitamin D3) [Decara (50,000 Iu)] 1,250 mcg PO WEEKLY 10/19/22 [History] Dextroamphetamine/Amphetamine [Adderall] 20 mg PO DAILY 10/19/22 [History] Escitalopram [Lexapro] 20 mg PO DAILY 10/19/22 [History] Kratom (Supplement) 1 dose PO DAILY PRN 10/19/22 [History] LORazepam [Ativan] 0.5 mg PO DAILY PRN 10/19/22 [History] Montelukast [Singulair] 10 mg PO DAILY 10/19/22 [History] Pseudoephedrine 12Hr [Sudafed 12 Hour] 120 mg PO Q12HR PRN 10/19/22 [History] Follow up Appointment(s)/Referral(s): Bryan Yang DO [Primary Care Provider] - 1-2 days Activity/Diet/Wound Care/Special Instructions: Avoid the use of street drugs and alcohol. Take all medications as prescribed. When you are in need of refills on your medications, please contact your medical provider and/or outpatient psychiatrist to have this done. Please go to scheduled outpatient appointments for aftercare treatment. If symptoms return or become worse, call the crisis line at and/or go to the nearest emergency room for evaluation.
[2022-10-24] MEDS ORDERED: BACLOFEN 10 MG TAB PO SCH (21:00)
== END 2022-10-24 18:42 | disposition short-term general hospital, planned readmission (82) | DRG 885 ==
LOC: EC 06:12 → 3MHU 19:58
PROVIDERS: ADMIT Psychiatry & Neurology Psychiatry; ATTEND Psychiatry & Neurology Psychiatry
DX: F23 Brief psychotic disorder (principal); F19.231 Other psychoactive substance dependence with withdrawal delirium; G47.00 Insomnia, unspecified; R45.1 Restlessness and agitation; T14.8XXA Other injury of unspecified body region, initial encounter; F17.290 Nicotine dependence, other tobacco product, uncomplicated; F32.A Depression, unspecified; F41.9 Anxiety disorder, unspecified; T50.995A Adverse effect of other drugs, medicaments and biological substances, initial encounter; D72.829 Elevated white blood cell count, unspecified; D64.9 Anemia, unspecified; Z20.822 Contact with and (suspected) exposure to COVID-19; Z79.899 Other long term (current) drug therapy; Z91.040 Latex allergy status; Z78.1 Physical restraint status
CPT/HCPCS: 36415; 80053; 80143; 80179; 80306; 80320; 81001; 81025; 82140; 83735; 84100; 84443; 85025; 87635; 93005; 96372; 99285

== ENCOUNTER 2022-10-24 18:32 | Inpatient (IN) | payer OTHER ==
--- NOTE | 2022-10-24 20:05 | CT ---
EXAMINATION TYPE: CT brain wo con DATE OF EXAM: 10/24/2022 COMPARISON: None INDICATION: AMS DLP: 1103.6 mGycm, Automated exposure control for dose reduction was used. CONTRAST: None CT of the brain is performed utilizing 3 mm thick sections through the posterior fossa and 3 mm thick sections through the remaining calvarium. Study is performed within 24 hours of arrival to the hosp ital. No abnormal hyperdensity is present to suggest an acute intracranial hemorrhage. No mass lesion is evident. No acute infarcts are evident. Ventricles and sulci are appropriate for the patient age. There is an air-fluid level within the right maxillary sinus. Some mild mucosal thickening is in the left maxillary sinus. Ethmoid air cells and frontal sinuses are clear. Some mucosal thickening spheno id sinus. Mastoid air cells are clear. IMPRESSIONS: 1. No acute intracranial process. Follow-up MRI can be performed as clinically indicated. 2. Air-fluid level within the right maxillary sinus. Correlate for acute sinusitis.
[2022-10-24 20:23] LABS: HCT 32.4 % (34.0-46.0); HGB 10.3 gm/dL (11.4-16.0); Hypochromasia Slight; MCH 26.2 pg (25.0-35.0); MCHC 31.8 g/dL (31.0-37.0); MCV 82.5 fL (80.0-100.0); Mean Platelet Volume 7.9; Platelet Count 297 k/uL (150-450); RBC 3.94 m/uL (3.80-5.40); WBC 5.7 k/uL (3.8-10.6)
[2022-10-24] MEDS ORDERED: HALOPERIDOL LACTATE 5 MG/ML 1 ML VIAL IM PRN (20:31)
[2022-10-24 20:39] LABS: African American GFR (CKD) >90 (>60 ml/min/1.73 sqM); Anion Gap 9 mmol/L; Blood Urea Nitrogen 22 mg/dL (7-17); Calcium 9.4 mg/dL (8.4-10.2); Carbon Dioxide 32 mmol/L (22-30); Chloride 98 mmol/L (98-107); Glucose 96 mg/dL (74-99); Non-African American GFR(CKD) >90 (>60 ml/min/1.73 sqM); Potassium 3.3 mmol/L (3.5-5.1); Sodium 139 mmol/L (137-145)
[2022-10-24] MEDS: HEPARIN SODIUM,PORCINE/PF 5,000 UNIT/0.5 ML SYRINGE SQ SCH (23:59)
[2022-10-25 06:22] LABS: Appearance,Urine Cloudy (Clear); Bilirubin,Urine Negative (Negative); Blood,Urine Negative (Negative); Color,Urine Yellow; Glucose,Urine (UA) Negative (Negative); Ketones,Urine Trace (Negative); Leukocyte Esterase,Urine Trace (Negative); Mucus,Urine Rare /hpf; Nitrite,Urine Positive (Negative); PH, Urine 6.5 (5.0-8.0); Protein,Urine Negative (Negative); RBC,Urine 1 /hpf (0-5); Specific Gravity,Urine 1.018 (1.001-1.035); Urobilinogen,Urine <2.0 mg/dL (<2.0); WBC,Urine 8 /hpf (0-5)
[2022-10-25] MEDS: HEPARIN SODIUM,PORCINE/PF 5,000 UNIT/0.5 ML SYRINGE SQ SCH ×2 (07:47→22:03)
[2022-10-25] MEDS: ACETAMINOPHEN TAB 325 MG TAB PO PRN (09:25)
[2022-10-25] MEDS ORDERED: ALBUTEROL NEBULIZED 2.5 MG/3 ML INHALATION PRN (09:26)
[2022-10-25] MEDS: MONTELUKAST 10 MG TAB PO SCH (09:31)
[2022-10-25] MEDS ORDERED: Potassium Replacement Protocol 1 EACH MISC MISCELLANE PRN (09:32)
[2022-10-25] MEDS: SODIUM CHLORIDE 0.9% 1,000 ML IV SCH (09:53)
[2022-10-25] MEDS: POTASSIUM CHLORIDE ER 20 MEQ TAB.ER PO SCH ×2 (09:54→11:32)
[2022-10-25] MEDS: flUPHENAZine 2.5 MG/ML (MDV) 10 ML VIAL IM PRN (12:50)
[2022-10-25] MEDS ORDERED: ZIPRASIDONE 20 MG VIAL IM STA (13:35)
--- NOTE | 2022-10-25 13:59 | P.CN ---
Psychiatric Consult - . Consult date: 10/25/22 Consult:: 10/25/22 12:04 IDENTIFYING DATA: Patient is a 37-year-old female, currently lives with her and 1 son in a house, she is unemployed. Reason for consultation: continued psychiatric management post transfer from [facility]. HPI: Patient was seen initially by grant writer for psychiatric admission to the MHU and as per note "Patient presented to the hospital by the police. Patient apparently was aggressive combative with medical staff and was petitioned by tax revenue officer. Patient received several doses of Haldol prn injection and also Ativan and Benadryl in the ER and needed several restraints due to agitation yelling and aggression. Patient was admitted involuntarily to the mental health unit and apparently has no psychiatric history. Patient was seen wandering the hallways and was agreeable to seek to grant writer today. She was fairly constricted in her affect and states that she is feeling anxious and scared of being on the unit. She states that she does not remember much from yesterday. She claims that the last thing she remembers is going to her parents for a sleepover with her son. She states that she has several bruises all over her body and is in some pain. She claims that she has been having an increase in stress lately due to fighting at home with her and also a ongoing possible foreclosure of her home. She states that she feels a bit disoriented and anxious today. Denying any depression. She is denying not endorsing any paranoia. States that her sleep for the past several days has been down. Her appetite has also been fair. Patient is denying any suicidal or homicidal ideations intent or plan. Denying any auditory or visual hallucinations. Patient admits to using phenibute and kratom regularly as it helps her with "nerve pain" and also anxiety. she states that she smokes nicotine vape regularly. Denies any other recreational drug use." patient was seen again today at the bedside. patient was transferred to the medical floors last night after receiving zyprexa PO dose due to increased agitation. patient apparently was more disorganized and lost continence and urinated on the floor and also had dyspnea. an A team was called and patient was transferred to medicine. Patient was seen today laying in bed and was confused, appeared to recognize grant writer however her speech was grossly impaired, rambling nonsensically, loos associations. was not able to answer most questions appropriately. she was not able to follow any commands. nurse claims that patient was agitated and required a PRN prolixin earlier. patient was not ablke to provide social hisotry however this was taken from writers previous H and P. PAST PSYCHIATRIC HISTORY: Patient states that she has no significant psychiatric history however is currently on Lexapro 20 mg due to depression and anxiety. Shilo padilla denies any previous psychiatric hospitalizations. Patient denies any psychiatric outpatient follow-up. Patient denies any history of suicide attempts in the past. PMH:Past Medical History: No Reported History Additional Past Medical History / Comment(s): Patient has a history of migraine headaches. History of Any Multi-Drug Resistant Organisms: None Reported Past Surgical History: Orthopedic Surgery Additional Past Surgical History / Comment(s): Patient has had sinus surgery, and reconstruction surgery of her right knee Past Anesthesia/Blood Transfusion Reactions: No Reported Reaction Past Psychological History: No Psychological Hx Reported Past Alcohol Use History: None Reported Past Drug Use History: None Reported ALLERGIES: as per EMR CHEMICAL DEPENDENCY HISTORY: as per HPI FAMILY PSYCHIATRIC/SUBSTANCE USE HISTORY: denies SOCIAL HISTORY: Patient was born and raised in the [facility]. She claims that she completed high school and did some college. She states that she has 1 son, currently lives with her in a house. She claims that she went to custodial several years ago for a breaking and entering charge. MENTAL STATUS EXAM: General Appearance: Patient appears to have several bruises over her arms and legs, mildly swollen face, red L eye, stated age is alert, confused and agitated at times. Patient appears to have fair hygiene and grooming. Behavior: Patient is laying in bed, bizarre and not directable. Speech: Patient's speech is rambling, nonsensical. Mood/Affect: Unable to assess Suicidality/Homicidality: Unable to assess Perceptions: Unable to assess. Though content/process: Rambling, loose associations, disorganized speech and thoughts. Memory and concentration: Concentration is grossly impaired, not able to follow any directions or commands. Judgment and insight: poor IMPRESSIONS: Delirium likely secondary to psychoactive substances?? (kratom and phenibut) hx of depression and anxiety PLAN: -At this time psychiatry will continue to follow along with treatment of patients delirium and finding the underlying cause -Patient DOES NOT have decision making capacity at this time and is unable to reason through and communicate/appreciate the risks, benefits and alternatives to treatment. -Delirium precautions recommended with patient including - avoiding use of narcotics and CLAMSHELL OPERATOR sedatives, limit anticholinergic medications when possible, frequent re-orientation, minimize use of restraints, open window shades during the day and close them at night -Would recommend the following medication changes/additions: try and avoid yoko os at this time for agitation. will use prolixin and cogentin IM mainly for agitation/psychosis. It appears that patient may not have tolerated zyprexa prn yesterday well, gave verbal order for geodon one dose IM now for agitation/aggression. will hold other psychotropic medications at this time. will start scheduled baclofen 10 mg tid for tx of withdrawal delirium from phenibut. -Continue 1:1 sitter for safety -Communicated plan to patient's nurse -Will continue to follow along -Please contact with any questions.
--- NOTE | 2022-10-25 15:03 | P.CNNES ---
History of Present Illness Consult date: 10/25/22 Requesting physician: Jere Mccarty Reason for Consult: AMS History of Present Illness: As is a 37-year-old man who was transferred from the the mental health unit because a worsening of her confusion. History was obtained from the psychiatry notes. It appears the patient since it to the hospital by police. It seems t hat she was aggressive, combative and she received several doses of Haldol when necessary injection as well as Ativan and parent at medical in the ED and needed that several restraints due to her agitation and being a progression. This seems per documentation she claimed that she had the several bruises all over the body and has been having increased stress lately due to finding at home with her and ongoing possible foreclosure of her home. Patient admitted to psychiatry team that she is using phenibute and kratom regulary helps with her nerve pain as well as anxiety. She smokes nicotine it was she was able to readily. Patient stated that to me that the she has history of illicit drug use and that was during the cause. It's hard to get a good the history from the patient since she is talking gibberish. She stated that she socially smokes and drift alcohol. She denies of any illicit drug use heroin use. Per the patient nurse her confusion waxes and wanes. Per the nurse she stated that she was alert oriented times 3 in the morning. Workup during the ED as well as that this admission consisted of: So far the patient has been afebrile. Blood cells 5.7 thousand which is within normal limits Ammonia level is less than 9. Calcium, sodium, creatinine, TSH is within normal limits. CT of the head is reported as no acute intracranial processes. Follow-up MRI can be performed as clinically indicated. Air fluid level within the right maxillary sinus. Correlate for acute sinusitis. I personally reviewed the CT and there is no acute subacute ischemia, no bleed, there is no intraparenchymal mass that was appreciable. Urine drug screen is positive for propoxyphene, amphetamine and benzo. Review of Systems Review of systems Limited Past Medical History Past Medical History: Asthma Additional Past Medical History / Comment(s): Patient has a history of migraine headaches; possible fibromyalgia per mom History of Any Multi-Drug Resistant Organisms: None Reported Past Surgical History: Orthopedic Surgery Additional Past Surgical History / Comment(s): Patient has had sinus surgery, and reconstruction surgery of her right knee Past Anesthesia/Blood Transfusion Reactions: No Reported Reaction Past Psychological History: No Psychological Hx Reported Smoking Status: Never smoker, Unknown if ever smoked Past Alcohol Use History: Occasional Additional Drug Use History / Comment(s): Kratom Medications and Allergies Home Medications Medication Instructions Recorded Confirmed Type Albuterol Inhaler [Ventolin Hfa 2 puff INHALATION RT-Q6H PRN 10/19/22 10/24/22 History Inhaler] Cholecalciferol (Vitamin D3) 1,250 mcg PO WEEKLY 10/19/22 10/24/22 History [Decara (50,000 Iu)] Dextroamphetamine/Amphetamine 20 mg PO DAILY 10/19/22 10/24/22 History [Adderall] Escitalopram [Lexapro] 20 mg PO DAILY 10/19/22 10/24/22 History Kratom (Supplement) 1 dose PO DAILY PRN 10/19/22 10/24/22 History LORazepam [Ativan] 0.5 mg PO DAILY PRN 10/19/22 10/24/22 History Montelukast [Singulair] 10 mg PO DAILY 10/19/22 10/24/22 History Pseudoephedrine 12Hr [Sudafed 12 120 mg PO Q12HR PRN 10/19/22 10/24/22 History Hour] Allergies Allergy/AdvReac Type Severity Reaction Status Date / Time Latex, Natural Rubber Allergy Itching Verified 10/19/22 11:07 Physical Examination - Vital Signs Vital Signs: Vital Signs Temp Pulse Resp BP Pulse Ox 10/25/22 11:29 98.1 F 83 16 129/65 97 10/25/22 07:45 98.4 F 73 14 142/74 99 10/25/22 03:08 98.6 F 73 14 123/78 98 10/24/22 23:50 96 10/24/22 23:46 98.6 F 88 16 120/77 92 L 10/24/22 20:13 98.4 F 81 14 122/68 96 Intake and Output 10/24/22 10/25/22 10/25/22 22:59 06:59 14:59 Intake Total 470 Output Total 400 Balance -400 470 Intake: Oral 470 Output: Urine 400 Other: Voiding Method Diaper Diaper Diaper Weight 81.5 kg GENERAL: The patient is lying in bed and does not appear in acute distress but appears anxious. HENT: Supple neck. CHEST:No edema in extremities. LUNG: Not labored breathing. NEUROLOGICAL: Very limited because of her condition. Higher mental function: The patient is awake oriented to self only. Patient is talking gibberish. She was able to name glasses but otherwise language was gibberish and talking nonsensical. At times she is able to follow commands such as showing a thumbs up, showing the index finger making a fist lifting on extremities., Cranial nerves: The pupils are round, equal and reactive to light. Has echymoses of the left medial eye. Visual petersen are full to confrontation throughout. Extraocular movement is intact no nystagmus is noted. No facial weakness. No dysarthria. Motor: The strength is limited in assessment of individual muscle strength. Gut lifting uppers and lowers above gravity5 over 5 throughout. Normal tone and bulk. Cerebellum: Normal finger to nose bilaterally. Sensation: Unable to assess. Reflexes (right/left): 2+ Plantars are downgoing bilaterally. Results - Laboratory Findings CBC and BMP: 10/24/22 19:40 10/24/22 19:40 Abnormal Lab Findings: Abnormal Labs 10/24/22 10/24/22 10/25/22 19:40 19:40 06:00 Hgb 10.3 L Hct 32.4 L RDW 16.0 H Potassium 3.3 L Carbon Dioxide 32 H BUN 22 H Urine Appearance Cloudy H Urine Ketones Trace H Urine Nitrite Positive H Ur Leukocyte Esterase Trace H Urine WBC 8 H Urine Mucus Rare H Assessment and Plan Assessment: Delirium likely due subsutance abuse (Kratom and phenibut) History of depression and anxiety Plan: I ordered urgent EEG. Ordered MRI of the brain to rule out any central cause such as a mass or other causes of central cause. CT brain was negative. Ordered vitamin B12 and folate level. Started the patient on thiamine 100 mg IV daily. We'll defer the rest of the management to the psychiatry team Plan discussed with the patient's nurse. [place] for the consultation Time with Patient: Greater than 30
[2022-10-25] MEDS: BACLOFEN 10 MG TAB PO SCH ×3 (15:32→22:02)
[2022-10-25] MEDS: THIAMINE 100 MG/ML 2 ML VIAL IVP SCH (15:34)
--- NOTE | 2022-10-25 23:39 | P.HPIM ---
History of Present Illness H&P Date: 10/25/22 Chief Complaint: Altered mental status Patient is a 37-year-old female without significant past medical history was admitted to the hospital due to aggressive behavior and delirium/psychosis on 10/19/2022. Patient was initially admitted to mental health unit and is being treated. Yesterday evening patient became delirious and hallucinating with altered sensorium. Patient received Zyprexa dose for agitation about 30 minutes prior to this episode. rapid response team was called and patient was eventually transferred to medical floor for further management. Apparently patient has not been sleeping well and does not stressful situation and ongoing foreclosure of her home. No prior history of psychiatric admission. Patient is currently not on any medications at home. She is using kratom and Phenibut at home due to her anxiety. Does vape. Denies any IV injections illicit drug use. CT head showed no acute intracranial process. Air-fluid levels within the right maxillary sinus. Correlate for acute sinusitis. Laboratory data showed WBC 5.4, hemoglobin 10.7 platelets 329 sodium 138 potassium 3.3 chloride 97 bicarb is 31 BUN 21 and creatinine 0.75 and blood sugar 101 liver enzymes are not elevated. UDS on admission positive for propoxyphene on, amphetamines and benzodiazepines. Urinalysis today showed cloudy with trace ketones and nitrite positive and WBCs 8. Review of Systems ROS unobtainable: due to mental status Past Medical History Past Medical History: Asthma Additional Past Medical History / Comment(s): Patient has a history of migraine headaches; possible fibromyalgia per mom History of Any Multi-Drug Resistant Organisms: None Reported Past Surgical History: Orthopedic Surgery Additional Past Surgical History / Comment(s): Patient has had sinus surgery, and reconstruction surgery of her right knee Past Anesthesia/Blood Transfusion Reactions: No Reported Reaction Past Psychological History: No Psychological Hx Reported Smoking Status: Never smoker, Unknown if ever smoked Past Alcohol Use History: Occasional Additional Drug Use History / Comment(s): Kratom Medications and Allergies Home Medications Medication Instructions Recorded Confirmed Type Albuterol Inhaler [Ventolin Hfa 2 puff INHALATION RT-Q6H PRN 10/19/22 10/24/22 History Inhaler] Cholecalciferol (Vitamin D3) 1,250 mcg PO WEEKLY 10/19/22 10/24/22 History [Decara (50,000 Iu)] Dextroamphetamine/Amphetamine 20 mg PO DAILY 10/19/22 10/24/22 History [Adderall] Escitalopram [Lexapro] 20 mg PO DAILY 10/19/22 10/24/22 History Kratom (Supplement) 1 dose PO DAILY PRN 10/19/22 10/24/22 History LORazepam [Ativan] 0.5 mg PO DAILY PRN 10/19/22 10/24/22 History Montelukast [Singulair] 10 mg PO DAILY 10/19/22 10/24/22 History Pseudoephedrine 12Hr [Sudafed 12 120 mg PO Q12HR PRN 10/19/22 10/24/22 History Hour] Allergies Allergy/AdvReac Type Severity Reaction Status Date / Time Latex, Natural Rubber Allergy Itching Verified 10/19/22 11:07 Physical Exam Vitals: Vital Signs Temp Pulse Resp BP Pulse Ox 10/25/22 07:45 98.4 F 73 14 142/74 99 10/25/22 03:08 98.6 F 73 14 123/78 98 10/24/22 23:50 96 10/24/22 23:46 98.6 F 88 16 120/77 92 L 10/24/22 20:13 98.4 F 81 14 122/68 96 Intake and Output 10/24/22 10/25/22 10/25/22 22:59 06:59 14:59 Output Total 400 Balance -400 Output: Urine 400 Other: Voiding Method Diaper Diaper Diaper Weight 81.5 kg PHYSICAL EXAMINATION: Patient is lying in the bed. Awake alert and oriented x0. Talking to herself and hallucinating. HEENT: Normocephalic. Neck is supple. Pupils reactive. Nostrils clear. Oral cavity is moist. Neck reveals no JVD, carotid bruits, or thyromegaly. CHEST EXAMINATION: Trachea is central. Symmetrical expansion. Lung petresen clear to auscultation and percussion. CARDIAC: Normal S1, S2 with no gallops. No murmurs ABDOMEN: Soft. Bowel sounds present. Nontender. No organomegaly. No abdominal bruits. Extremities: reveal no edema. No clubbing or cyanosis Neurologically awake, alert, oriented x0. No gross focal neurological deficit. Able to move all extremities. Skin: No rash or skin lesions. Psychiatric: Coperative. Could not be assessed today. Musculoskeletal: No joint swelling or deformity. Results CBC & Chem 7: 10/24/22 19:40 10/24/22 19:40 Labs: Abnormal Lab Results - Last 24 Hours (Table) 10/24/22 10/24/22 10/25/22 Range/Units 19:40 19:40 06:00 Hgb 10.3 L (11.4-16.0) gm/dL Hct 32.4 L (34.0-46.0) % RDW 16.0 H (11.5-15.5) % Potassium 3.3 L (3.5-5.1) mmol/L Carbon Dioxide 32 H (22-30) mmol/L BUN 22 H (7-17) mg/dL Urine Appearance Cloudy H (Clear) Urine Ketones Trace H (Negative) Urine Nitrite Positive H (Negative) Ur Leukocyte Esterase Trace H (Negative) Urine WBC 8 H (0-5) /hpf Urine Mucus Rare H (None) /hpf Thrombosis Risk Factor Assmnt - DVT/VTE Prophylaxis DVT/VTE Prophylaxis: Pharmacologic Prophylaxis ordered - Choose All That Apply Any of the Below Risk Factors Present?: Yes Each Factor Represents 1 point: Obesity (BMI >25) Other Risk Factors: No Other congenital or acquired thrombophilia - If yes, enter type in comment: No Thrombosis Risk Factor Assessment Total Risk Factor Score: 1 Thrombosis Risk Factor Assessment Level: Low Risk Assessment and Plan Assessment: Acute delirium/hallucinations likely due to withdrawal from psychiatry substance use. She is using Kratom and Phenibut. History of anxiety/depression Possible urinary tract infection Acute maxillary sinusitis as per CT head History of sinus surgery Acute urinary retention DVT prophylax with heparin subcu Plan: Patient is currently being continued on IV hydration with normal saline and Prolixin IM 2.5 mg every 6 hourly as needed for agitation. Patient was started on baclofen 10 mg 3 times daily for withdrawal symptoms as per psychiatry recommendations. Continue with ceftriaxone and follow-up final urine culture report. Patient is refusing straight catheterization. Continue to follow closely. Continue with constant observer at bedside.. Time with Patient: Greater than 30
[2022-10-26 09:03] LABS: Basophils % (A) 1 %; Eosinophils # (A) 0.1 k/uL (0-0.7); Eosinophils % (A) 1 %; HCT 33.8 % (34.0-46.0); HGB 10.8 gm/dL (11.4-16.0); Hypochromasia Slight; Lymphocytes # (A) 0.7 k/uL (1.0-4.8); Lymphocytes % (A) 12 %; MCH 27.2 pg (25.0-35.0); MCV 84.9 fL (80.0-100.0); Mean Platelet Volume 7.6; Monocytes # (A) 0.3 k/uL (0-1.0); Monocytes % (A) 6 %; Neutrophils # (A) 4.3 k/uL (1.3-7.7); Neutrophils % (A) 79 %; Platelet Count 315 k/uL (150-450); RBC 3.97 m/uL (3.80-5.40); RDW 15.4 % (11.5-15.5); WBC 5.5 k/uL (3.8-10.6)
[2022-10-26] MEDS: HEPARIN SODIUM,PORCINE/PF 5,000 UNIT/0.5 ML SYRINGE SQ SCH ×2 (09:08→20:20)
[2022-10-26] MEDS: BACLOFEN 10 MG TAB PO SCH ×3 (09:09→20:16)
[2022-10-26] MEDS: THIAMINE 100 MG/ML 2 ML VIAL IVP SCH (09:09)
[2022-10-26] MEDS: MONTELUKAST 10 MG TAB PO SCH (09:09)
[2022-10-26 09:46] LABS: African American GFR (CKD) >90 (>60 ml/min/1.73 sqM); Anion Gap 10 mmol/L; Blood Urea Nitrogen 11 mg/dL (7-17); Carbon Dioxide 29 mmol/L (22-30); Chloride 102 mmol/L (98-107); Glucose 84 mg/dL (74-99); Non-African American GFR(CKD) >90 (>60 ml/min/1.73 sqM); Sodium 141 mmol/L (137-145)
[2022-10-26] MEDS: SODIUM CHLORIDE 0.9% 1,000 ML IV SCH ×2 (13:06)
[2022-10-26] MEDS: flUPHENAZine 2.5 MG/ML (MDV) 10 ML VIAL IM PRN (13:12)
--- NOTE | 2022-10-26 13:20 | P.PN ---
Subjective Progress Note Date: 10/26/22 The patient is seen at bedside and she is accompanied with a sitter and has fluctuation in her mentation. Objective - Vital Signs Vital signs: Vital Signs Temp 98.5 F 10/26/22 08:00 Pulse 76 10/26/22 08:00 Resp 16 10/26/22 08:00 BP 153/73 10/26/22 08:00 Pulse Ox 96 10/26/22 08:00 FiO2 Intake & Output 10/25/22 10/26/22 10/26/22 18:59 06:59 18:59 Intake Total 1220 250 Output Total 1050 Balance 170 250 Intake: Oral 1220 250 Output: Urine 1050 Other: Voiding Method Diaper Bedside Commode Bedside Commode # Voids 1 1 # Bowel Movements 1 - Exam GENERAL: The patient is lying in bed and does not appear in acute distress but appears anxious. HENT: Supple neck. NEUROLOGICAL: Very limited because of her condition. Higher mental function: The patient is awake oriented to self only after multiple tries. She is oriented to time. With options as she eventually stated that she was in the hospital. She's able to name objects such as pen, watch and glasses. She talks nonsensical most of the times and her speech fluctuates. Patient is able to follow simple commands. Cranial nerves: The pupils are round, equal and reactive to light. Has echymoses of the left medial eye. Visual petersen are full to confrontation throughout. Extraocular movement is intact no nystagmus is noted. No facial weakness. No dysarthria. Motor: The strength is limited in assessment of individual muscle strength. Lifting uppers and lowers above gravity5 over 5 throughout. Normal tone and bulk. Cerebellum: Normal finger to nose bilaterally. Sensation: Unable to assess. Reflexes (right/left): 2+ Plantars are downgoing bilaterally. SOME OF THE WORK-UP DURING THIS HOSPITAL VISIT CONSISTED OF: So far the patient has been afebrile. Blood cells 5.7 thousand which is within normal limits Ammonia level is less than 9. Calcium, sodium, creatinine, TSH is within normal limits. Folate is 26.6 Vitamin B12 is [address] of the head is reported as no acute intracranial processes. Follow-up MRI can be performed as clinically indicated. Air fluid level within the right maxillary sinus. Correlate for acute sinusitis. I personally reviewed the CT and there is no acute subacute ischemia, no bleed, there is no intraparenchymal mass that was appreciable. Urine drug screen initially when she presented to ED was positive for propoxyphene, amphetamine and benzo. - Labs CBC & Chem 7: 10/26/22 07:40 10/26/22 07:40 Labs: Abnormal Lab Results - Last 24 Hours (Table) 10/25/22 10/26/22 Range/Units 15:47 07:40 Hgb 10.8 L (11.4-16.0) gm/dL Hct 33.8 L (34.0-46.0) % Lymphocytes # 0.7 L (1.0-4.8) k/uL Vitamin B12 1221.0 H (200.0-944.0) pg/mL Assessment and Plan Assessment: Delirium likely due subsutance abuse (Kratom and phenibut) History of depression and anxiety Plan: I ordered urgent EEG: Preliminary report is abnormal. The background slowing is suggestive of mild encephalopathy. Otherwise, no seizure or discharges. Pending MRI of the brain to rule out any central cause such as a mass or other causes of central cause. CT brain was negative. Agree with psychiatry of pursuing BHARTI, syphilis, anti NMDA. If workup above is negative and she continues to be encephalopathic then we'll pursue a lumbar puncture. On thiamine 100 mg IV daily. We'll defer the rest of the management to the psychiatry team Plan discussed with the patient's nurse. Time with Patient: Less than 30
--- NOTE | 2022-10-26 14:24 | P.PN ---
Progress Note - Text Progress Note Date: 10/26/22 Interval History: Patient was seen today for psychiatric follow-up. Patient apparently has been retaining urine. She has taken 2 doses of the baclofen since yesterday. Patient was seen laying in bed today with her sitter at her side. Patient was alert and awake during the conversation. Patient was rambling, illogical, loose associations. Bizarre thought content. difficult to comprehend. rapid speech. she recieved IM geodon and prolixin IM yesterday. At this time patient denies any suicidal or homical ideations, intent or plan. Patient denies any auditory, visual hallucinations and denies any paranoia or delusions. Patient denies any side effects from the medications and has been compliant with meds. Mental Status Exam: General Appearance: Patient appears to have several bruises over her arms and legs, mildly swollen face, red L eye, stated age is alert, confused and agitated at times. Patient appears to have fair hygiene and grooming. Behavior: Patient is laying in bed, bizarre and not directable. Speech: Patient's speech is rambling, nonsensical. Mood/Affect: Unable to assess Suicidality/Homicidality: Unable to assess Perceptions: Unable to assess. Though content/process: Rambling, loose associations, disorganized speech and thoughts. Memory and concentration: Concentration is grossly impaired, not able to follow any directions or commands. Judgment and insight: poor IMPRESSIONS: Delirium likely secondary to psychoactive substances?? (kratom and phenibut) hx of depression and anxiety PLAN: -At this time psychiatry will continue to follow along with treatment of patients delirium and finding the underlying cause -Patient DOES NOT have decision making capacity at this time and is unable to reason through and communicate/appreciate the risks, benefits and alternatives to treatment. -Delirium precautions recommended with patient including - avoiding use of narcotics and DEPUTY FIRE CHIEF sedatives, limit anticholinergic medications when possible, frequent re-orientation, minimize use of restraints, open window shades during the day and close them at night -Would recommend the following medication changes/additions: increase prolixin and cogentin IM mainly for agitation/psychosis. continue scheduled baclofen 10 mg tid for tx of withdrawal delirium from phenibut. -ordered BHARTI testing, anti NMDA receptor IGg, syphillis. tsh, and vitamin b12 look OK. appreicate neuirology recs. -Continue 1:1 sitter for safety -Communicated plan to patient's nurse -Will continue to follow along -Please contact with any questions.
[2022-10-26] MEDS ORDERED: ZIPRASIDONE 20 MG VIAL IM STA (15:02)
[2022-10-26 18:08] LABS: Anti-DNA, DS unit <1.0 IU/mL; DNA Double-Stranded NEGATIVE (NEGATIVE)
--- NOTE | 2022-10-26 23:45 | EEG ---
ELECTROENCEPHALOGRAM REPORT CLINICAL HISTORY: This is a 37-year-old woman, who was transferred from the mental health unit because of confusion. The video EEG is obtained to evaluate for seizure epileptiform activity. RELEVANT MEDICATIONS: 1. Ativan at the mental health unit. 2. Benztropine. EEG TYPE: A routine 21-channel EEG is performed with video using the 10/20 electrode placement system. DESCRIPTION: Wakefulness is only obtained. It is hard to assess the background clearly because of the patient's myogenic artifact, but appears the background consists of 6 to 7 hertz activity. There is no physiological sleep architecture. There is no focal slowing that is appreciable. There is a moderate amount of diffuse myogenic artifact throughout the study. There is excessive diffuse beta activity throughout the study. Interictal and ictal is none. ACTIVATION PROCEDURE: Photic stimulation and hyperventilation are not performed. CLINICAL INTERPRETATION: This is an abnormal routine EEG. The background slowing is suggestive of mild encephalopathy likely due to medication effect. The excessive beta activity is due to medication effect (Ativan). Otherwise, there is no focal slowing, epileptiform discharge, or seizure on the EEG. Clinical correlation is recommended. MMODL / IJN: [id number] / MTDD
[2022-10-27] MEDS: flUPHENAZine 2.5 MG/ML (MDV) 10 ML VIAL IM PRN ×2 (00:24→15:20)
[2022-10-27] MEDS: BENZTROPINE 2 MG/2 ML AMP IM PRN ×2 (00:24→15:17)
[2022-10-27] MEDS: SODIUM CHLORIDE 0.9% 1,000 ML IV SCH (06:11)
[2022-10-27] MEDS: BACLOFEN 10 MG TAB PO SCH ×2 (08:26→16:50)
[2022-10-27] MEDS: THIAMINE 100 MG/ML 2 ML VIAL IVP SCH (08:26)
[2022-10-27] MEDS: MONTELUKAST 10 MG TAB PO SCH (08:26)
[2022-10-27] MEDS: HEPARIN SODIUM,PORCINE/PF 5,000 UNIT/0.5 ML SYRINGE SQ SCH (08:27)
[2022-10-27] MEDS ORDERED: OLANZapine 10 MG VIAL IM STA (10:48)
--- NOTE | 2022-10-27 11:47 | P.PN ---
Subjective Progress Note Date: 10/27/22 Patient seen at bedside and she is about the same. Objective - Vital Signs Vital signs: Vital Signs Temp 98.2 F 10/27/22 00:00 Pulse 87 10/27/22 08:00 Resp 16 10/27/22 08:00 BP 135/76 10/27/22 08:00 Pulse Ox 96 10/27/22 08:00 FiO2 Intake & Output 10/26/22 10/27/22 10/27/22 18:59 06:59 18:59 Intake Total 350 118 90 Balance 350 118 90 Intake: Oral 350 118 90 Other: Voiding Method Bedside Commode Toilet Toilet # Voids 1 1 # Bowel Movements 1 - Exam GENERAL: The patient is lying in bed and does not appear in acute distress but appears anxious. HENT: Supple neck. NEUROLOGICAL: Very limited because of her condition. Higher mental function: The patient is awake and is talking nonsensical most of the times and her speech fluctuates. Patient is able to follow simple commands. Cranial nerves: The pupils are round, equal and reactive to light. Has echymoses of the left medial eye. Visual petersen are full to confrontation throughout. Extraocular movement is intact no nystagmus is noted. No facial weakness. No dysarthria. Motor: The strength is limited in assessment of individual muscle strength. Lifting uppers and lowers above gravity5 over 5 throughout. Normal tone and bulk. Cerebellum: Normal finger to nose bilaterally. Sensation: Unable to assess. Reflexes (right/left): 2+ Plantars are downgoing bilaterally. SOME OF THE WORK-UP DURING THIS HOSPITAL VISIT CONSISTED OF: So far the patient has been afebrile. Blood cells 5.7 thousand which is within normal limits Ammonia level is less than 9. Calcium, sodium, creatinine, TSH is within normal limits. Folate is 26.6 Vitamin B12 is [address] of the head is reported as no acute intracranial processes. Follow-up MRI can be performed as clinically indicated. Air fluid level within the right maxillary sinus. Correlate for acute sinusitis. I personally reviewed the CT and there is no acute subacute ischemia, no bleed, there is no intraparenchymal mass that was appreciable. Urine drug screen initially when she presented to ED was positive for propoxyphene, amphetamine and benzo. Treponema pallidum antibody was nonreactive. BHARTI is negative Pjmu-tusbwi-errnsrgn DNA antibodies negative - Labs CBC & Chem 7: 10/26/22 07:40 10/26/22 07:40 Assessment and Plan Assessment: Delirium likely due subsutance abuse (Kratom and phenibut). Rule out any central causes: So far EEG is negative for seizure or discharges, negative BHARTI, syphilis testing, normal Vitamin B12, folate, TSH and ammonia level. So far afebrile and no leukocytosis. History of depression and anxiety Plan: I ordered urgent EEG: Is abnormal. The background slowing is suggestive of mild encephalopathy. Otherwise, no seizure or discharges. Pending MRI of the brain to rule out any central cause such as a mass or other causes of central cause. CT brain was negative. Agree with psychiatry of pursuing anti NMDA. I consulted anesthesiology team for lumbar puncture to rule out any underlying TANKER SERVICEMAN infection. I ordered ESR CRP, herpes 1 and 2. On thiamine 100 mg IV daily. We'll defer the rest of the management to the psychiatry team Plan discussed with the patient's nurse. Time with Patient: Less than 30
[2022-10-27 12:32] VITALS: BMI 29.0
[2022-10-27 12:37] LABS: Prothrombin Time 10.9 sec (9.0-12.0)
--- NOTE | 2022-10-27 13:54 | P.PN ---
Progress Note - Text Progress Note Date: 10/27/22 Interval History: Patient was seen today for psychiatric follow-up today. Patient apparently is going to have a lumbar puncture and also an MRI today. 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 She continues to remain on a one-to-one sitter. She attempted to answer more questions appropriately today. Continues to ramble at times however showed mild improvement and was mildly more directable today she was able to follow more complex command today. Continues to have a difficult time comprehending questions. At this time patient denies any suicidal or homical ideations, intent or plan. However has been noted by sitter to be talking to herself and looking around around the room. Patient denies any auditory, visual hallucinations and denies any paranoia or delusions. Mental Status Exam: General Appearance: Patient appears to have several bruises over her arms and legs, mildly swollen face, red L eye, stated age is alert, confused and agitated at times, showing mild improvement since yesterday. Patient appears to have fair hygiene and grooming. Behavior: Patient is laying in bed, bizarre and not directable, mildly improving. Speech: Patient's speech is rambling, nonsensical. Mood/Affect: "Okay" and has a constricted affect Suicidality/Homicidality: Denies Perceptions: Denies however has been seen to be responding to internal stimuli. Though content/process: Rambling, loose associations, disorganized speech and thoughts, mild improvement. Memory and concentration: Concentration is grossly impaired, able to follow some complex tasks/commands today. Judgment and insight: poor IMPRESSIONS: Delirium likely secondary to psychoactive substances?? (kratom and phenibut) r/o infectious causes and more rare psychiatric causes hx of depression and anxiety PLAN: -At this time psychiatry will continue to follow along with treatment of patients delirium and finding the underlying cause -Patient DOES NOT have decision making capacity at this time and is unable to reason through and communicate/appreciate the risks, benefits and alternatives to treatment. -Delirium precautions recommended with patient including - avoiding use of narcotics and CARPET JOURNEYMAN sedatives, limit anticholinergic medications when possible, frequent re-orientation, minimize use of restraints, open window shades during the day and close them at night -Would recommend the following medication changes/additions: continue prolixin and cogentin IM mainly for agitation/psychosis. continue scheduled baclofen 10 mg tid for tx of withdrawal delirium from phenibut. - awiting anti NMDA receptor IGg. syphillis - neg, tsh, and vitamin b12 look OK. appreicate neuirology recs. currently awiting mri and lumbar puncture. EEG apparently suggestive of mild encephalopathy -Continue 1:1 sitter for safety -Communicated plan to patient's nurse -Will continue to follow along as needed over the weekend. -Please contact with any questions.
[2022-10-27] MEDS ORDERED: HALOPERIDOL LACTATE 5 MG/ML 1 ML VIAL IM STA (16:18)
[2022-10-28] MEDS: flUPHENAZine 2.5 MG/ML (MDV) 10 ML VIAL IM PRN ×2 (00:23→08:56)
[2022-10-28] MEDS: BENZTROPINE 2 MG/2 ML AMP IM PRN ×2 (00:29→08:57)
[2022-10-28] MEDS: BACLOFEN 10 MG TAB PO SCH ×3 (00:39→16:45)
[2022-10-28] MEDS: HEPARIN SODIUM,PORCINE/PF 5,000 UNIT/0.5 ML SYRINGE SQ SCH ×3 (00:39→21:30)
[2022-10-28] MEDS: SODIUM CHLORIDE 0.9% 1,000 ML IV SCH ×2 (08:17→17:04)
[2022-10-28] MEDS: MONTELUKAST 10 MG TAB PO SCH (08:57)
[2022-10-28] MEDS: THIAMINE 100 MG/ML 2 ML VIAL IVP SCH (08:58)
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
[2022-10-28] MEDS ORDERED: HALOPERIDOL LACTATE 5 MG/ML 1 ML VIAL IVP ONE (17:08)
--- NOTE | 2022-10-28 17:23 | US ---
EXAMINATION TYPE: US pelvic complete DATE OF EXAM: 10/28/2022 Exam done portable COMPARISON: NONE CLINICAL INDICATION: Female, 37 years old with history of Rule out ovarian teratoma; Patient disorien brian - unable to obtain history TECHNIQUE: Transabdominal sonographic images of the pelvis were acquired. Date of LMP: n/a EXAM MEASUREMENTS: Uterus: 7.2 x 3.6 x 3.2 cm Endometrial Stripe: 0.3 cm Right Ovary: not seen Left Ovary: 2.8 x 1.5 x 2.5 cm Limited scan, difficult exam to perform - patient in restraints 1. Uterus: anteverted, fundal portion limited by overlying bowel gas 2. Endometrium: limited visualization 3. Right Ovary: not seen 4. Left Ovary: appears wnl 5. Bilateral Adnexa: wnl 6. Posterior cul-de-sac: wnl IMPRESSION: No evidence for acute process. No teratoma visualized by the rn labor and delivery or within the images. Attent ion to ordered follow-up CT abdomen pelvis which is currently scheduled at the time of this dictation .
--- NOTE | 2022-10-28 17:39 | CT ---
EXAMINATION TYPE: CT abdomen pelvis wo con CT DLP: 790.7 mGycm, Automated exposure control for dose reduction was used. DATE OF EXAM: 10/28/2022 5:28 PM COMPARISON: None CLINICAL INDICATION:Female, 37 years old with history of r/o mass; abdominal pain TECHNIQUE: Axial CT of the abdomen and pelvis. Sagittal and coronal reformats were created on a [employer] workstation. Contrast used: None Oral contrast used: without Oral Contrast FINDINGS: LOWER CHEST: Unremarkable ABDOMEN LIVER: Unremarkable GALLBLADDER AND BILE DUCTS: Unremarkable. PANCREAS: Unremarkable. SPLEEN: Unremarkable. ADRENAL GLANDS: Unremarkable. KIDNEYS AND URETERS: No evidence of hydronephrosis or renal calculus. The ureters are unremarkable. PELVIS BLADDER: Unremarkable REPRODUCTIVE: Unremarkable. ABDOMEN & PELVIS STOMACH AND BOWEL: No evidence of bowel obstruction. PERITONEUM/RETROPERITONEUM: No evidence of pneumoperitoneum or free fluid. VASCULATURE: No evidence of aortic aneurysm. MUSCULOSKELETAL: No acute osseous abnormalities LYMPH NODES: No gross evidence for lymphadenopathy. SOFT TISSUE/ABDOMINAL WALL: Unremarkable IMPRESSION: Significant motion artifact limits evaluation. * No abdominal mass visualized on this noncontrast limited exam. * No evidence for acute process visualized on this noncontrast limited exam.
[2022-10-29] MEDS: BACLOFEN 10 MG TAB PO SCH ×4 (01:06→21:15)
[2022-10-29] MEDS: THIAMINE 100 MG/ML 2 ML VIAL IVP SCH (08:44)
[2022-10-29] MEDS: HEPARIN SODIUM,PORCINE/PF 5,000 UNIT/0.5 ML SYRINGE SQ SCH ×2 (08:44→21:17)
[2022-10-29] MEDS: MONTELUKAST 10 MG TAB PO SCH (08:44)
[2022-10-29] MEDS ORDERED: LORazepam 2 MG/ML INJ IV STA (11:13)
[2022-10-29] MEDS ORDERED: LIDOCAINE 1% INJ 10MG/ML (30 ML VIAL-PF) SQ STA (11:23)
--- NOTE | 2022-10-29 11:54 | P.PN ---
Progress Note - Text Progress Note Date: 10/29/22 Another attempt at lumbar puncture made after pt received ativan. Although we were able to sit the patient up and prep her back, she became belligerent upon local and needle insertion. 2 punctures made at L3-4 interspace w/ positive CSF, but loss of flow from excessive pt movement. Procedure aborted. Please consider other diagnostic modalities.
--- NOTE | 2022-10-29 12:25 | P.PN ---
Subjective Progress Note Date: 10/29/22 Patient seen at bedside and she is about the same. Objective - Vital Signs Vital signs: Vital Signs Temp 99 F 10/29/22 08:40 Pulse 78 10/29/22 08:40 Resp 16 10/29/22 08:40 BP 105/77 10/29/22 08:40 Pulse Ox 94 L 10/29/22 08:40 FiO2 Intake & Output 10/28/22 10/29/22 10/29/22 18:59 06:59 18:59 Intake Total 500 Output Total 600 Balance -100 Intake: Oral 500 Output: Urine 600 Other: Voiding Method Diaper Diaper Diaper # Voids 1 - Exam GENERAL: The patient is lying in bed and does not appear in acute distress but appears anxious. HENT: Supple neck. NEUROLOGICAL: Very limited because of her condition. Higher mental function: The patient is awake and is talking nonsensical most of the times and her speech fluctuates. Today she is able to tell me her name. She is able to follow some simple commands such as don't thumbs up wiggling the toes. Cranial nerves: The pupils are round, equal and reactive to light. Has echymoses of the left medial eye. No facial weakness. No dysarthria. Motor: The strength is limited in assessment of individual muscle strength. She'll move extremities spontaneously on her own. Normal tone and bulk. SOME OF THE WORK-UP DURING THIS HOSPITAL VISIT CONSISTED OF: So far the patient has been afebrile. Blood cells 5.7 thousand which is within normal limits Ammonia level is less than 9. Calcium, sodium, creatinine, TSH is within normal limits. Folate is 26.6 Vitamin B12 is 1221 CT of the head is reported as no acute intracranial processes. Follow-up MRI can be performed as clinically indicated. Air fluid level within the right maxillary sinus. Correlate for acute sinusitis. I personally reviewed the CT and there is no acute subacute ischemia, no bleed, there is no intraparenchymal mass that was appreciable. Urine drug screen initially when she presented to ED was positive for propoxyphene, amphetamine and benzo. Treponema pallidum antibody was nonreactive. BHARTI is negative Rzcp-sewlwh-frdumhqe DNA antibodies negative Pelvic ultrasound is reported as no evidence for acute process. No teratoma visualized by this not refer within the images. CT abdomen and pelvis is reported as significant motion artifact limiting evaluation. No abdomen mass visualized on this noncontrast limited exam. 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 Rule out any central causes such as autoimmune disease explaining her symptoms: So far EEG is negative for seizure or discharges, negative BHARTI, syphilis testing, normal Vitamin B12, folate, TSH and ammonia level. Had one low dose fever on 10/28/22 of 100.3 after 4 days in this admission but otherwise afebrile and no leukocytosis. History of depression and anxiety Plan: EEG: Is abnormal. The background slowing is suggestive of mild encephalopathy. Otherwise, no seizure or discharges. Pending MRI of the brain to rule out any central cause such as a mass or other causes of central cause. CT brain was negative. Patient cannot lay still for MRI. Pending anti NMDA. Lumbar puncture was attempted yon 10/27/22 but patient was aggressive and could procedure could not be performed. Today she received 2mg of Ativan prior to Lumbar puncture and had to aborted since restless. Patient needs to be heavily sedated and that would require her to be intubated on a ventilator to have this lumbar puncture. Spoke with psychiatrist and she is in agreement. Pending Herpes 1/2, HIV. Ordered HIV 1/2 PCR. Ck level is mildly elevated 642 and ordered repeat for tomorrow. Ordered repeat EEG and will be possibly completed tomorrow to rule out seizure or discharges not seen on initial EEG and recommend repeat CT head upon heavily sedation. On thiamine 100 mg IV daily. We'll defer the rest of the management to the psychiatry team Plan discussed with the patient's nurse and psychiatry team. Dr. hSaw will start neurology service tomorrow A.M. Time with Patient: Less than 30
[2022-10-29] MEDS: ACETAMINOPHEN TAB 325 MG TAB PO PRN (15:58)
[2022-10-29] MEDS: HALOPERIDOL LACTATE 5 MG/ML 1 ML VIAL IM PRN ×2 (15:58→21:41)
[2022-10-29 16:47] LABS: Basophils # (A) 0.1 k/uL (0-0.2); Basophils % (A) 0 %; Eosinophils # (A) 0.1 k/uL (0-0.7); Eosinophils % (A) 1 %; HCT 36.7 % (34.0-46.0); Hypochromasia Slight; Lymphocytes # (A) 1.6 k/uL (1.0-4.8); Lymphocytes % (A) 13 %; MCH 27.2 pg (25.0-35.0); MCHC 32.7 g/dL (31.0-37.0); MCV 83.2 fL (80.0-100.0); Mean Platelet Volume 7.1; Monocytes # (A) 0.8 k/uL (0-1.0); Monocytes % (A) 6 %; Neutrophils # (A) 9.4 k/uL (1.3-7.7); Neutrophils % (A) 77 %; Platelet Count 400 k/uL (150-450); RDW 15.1 % (11.5-15.5); WBC 12.2 k/uL (3.8-10.6)
[2022-10-29 17:07] LABS: ALT 31 U/L (4-34); AST 38 U/L (14-36); African American GFR (CKD) >90 (>60 ml/min/1.73 sqM); Albumin 4.5 g/dL (3.5-5.0); Alkaline Phosphatase 76 U/L (38-126); Anion Gap 12 mmol/L; Blood Urea Nitrogen 10 mg/dL (7-17); Calcium 9.6 mg/dL (8.4-10.2); Carbon Dioxide 23 mmol/L (22-30); Chloride 106 mmol/L (98-107); Glucose 82 mg/dL (74-99); Non-African American GFR(CKD) >90 (>60 ml/min/1.73 sqM); Potassium 3.9 mmol/L (3.5-5.1); Sodium 141 mmol/L (137-145); Total Bilirubin 0.6 mg/dL (0.2-1.3); Total Protein 7.3 g/dL (6.3-8.2)
[2022-10-29] MEDS: SODIUM CHLORIDE 0.9% 1,000 ML IV SCH ×2 (18:45→21:14)
[2022-10-29 21:17] LABS: Glucose,Whole Blood 85 mg/dL (70-110)
--- NOTE | 2022-10-29 21:27 | P.PN ---
Progress Note - Text Progress Note Date: 10/28/22 Psychiatry follow-up note: Interval history: Patient was found in her bed in 4-point restraints with 1:1 sitter at bedside to maintain safety. Patient is appears overtly psychotic and confused, is restless, thrashing in bed, pulling at restraints, rambling gibberish at unseen stimuli. She intermittently has diffuse muscle twitches and spasms, abnormal eye movements (eyes crossing etc) lasting a couple minutes. She is not able to sustain attention to provide meaningful history. Nursing reports she does not appear to benefit from antipsychotics and is up "all night", not sleeping. I called and spoke with her parents, who reports there is a family history of CMT, epilepsy and family history of cancer. They report prior to admission patient has been having intermittent brief episodes of falling (like cataplexy?), wandering, unintelligible sleep, insomnia, mutism. I also called and spoke with her who confirms patient had been abusing phenibute and heavy Kratom use, and last used both on the day of admission. He reports patient also had irregular and sometimes heavy menses, insomnia. He reports she has never had an episode this bad. He is not sure if patient has abused any other substances besides the phenibute or the Kratom. Mental status exam: General Appearance: Patient appears to be stated age, disheveled, in restraints, in diaper due to urinary incontinence. Behavior: Agitated, thrashing in bed, requiring 4-point restraints and 1:1 for safety. Speech: Patient's speech is rambling gibberish, mostly incoherent. Mood/Affect: Mood is improving mildly, affect is congruent and constricted. Suicidality/Homicidality: Patient denies having any suicidal or homicidal ideation intent or plan. Perceptions: Patient denies any auditory or visual hallucinations. Though content/process: [There is no evidence of any delusional thought content and thought process is linear and goal-directed.] Memory and concentration: AOX3, grossly intact for the purposes of this session Judgment and insight: improving mildly Assessment/Plan: Possibly severe Kratom withdrawal - however patient has been admitted for about 10 days and would expect the more severe withdrawal symptoms to have dissipated at this point. Rule out underlying paraneoplastic/autoimmune pathology. There is a family history of multiple cancers etc. I ordered patient Valium 10 mg IV x 1 for agitation with hopes of some sedation to allow imaging studies. This helped patient calm somewhat, appeared to attempt to sleep, however after one hour she was still displaying muscle spasms and twitching, and thrashing although to a lesser extent. I ordered Ultrasound of the pelvis (transabdominal) however this was a difficult study due to patient's lack of cooperation and urinary incontinence, and did not reveal any ovarian pathology. I discussed this case with medicine attending. Patient received another Valium 10 mg IV x [address] abdomen/pelvis without contrast was completed, however motion artifact affected quality of study and study did not reveal any ovarian pathology. An MRI with contrast is recommended if there is further concern for ovarian teratoma leading to anti-NMDA receptor encephalitis. I ordered CK level which returned elevated at 642. Repeat CK ordered for Sunday morning to trend CK. I discussed this case with neurology attending Dr. Maher, and we agree at this point patient would benefit from sedation in the ICU to allow completion of LP to rule out underlying pathology. Patient would also benefit from sedation due to agitation requiring 4-points and increasing CK level. Consider Valium 10 mg IV Q8H PRN for severe agitation while on the medical floor if patient does not improve. Monitor vital signs closely. If patient is transferred to the ICU, then will defer type of sedation to the ICU team. Continue 1:1 sitter to maintain safety. Judicious use of restraints. Unclear if patient is getting any benefit of antipsychotics at this point. Will defer this to primary psychiatry team on Sunday. Psychiatry will continue to follow. Please contact with questions.
[2022-10-29] MEDS ORDERED: LORazepam 2 MG/ML INJ IM PRN (21:54)
[2022-10-30] MEDS: HALOPERIDOL LACTATE 5 MG/ML 1 ML VIAL IM SCH ×4 (00:20→18:54)
--- NOTE | 2022-10-30 02:28 | P.PN ---
Subjective Progress Note Date: 10/26/22 Patient is a 37-year-old female without significant past medical history was admitted to the hospital due to aggressive behavior and delirium/psychosis on 10/19/2022. Patient was initially admitted to mental health unit and is being treated. Yesterday evening patient became delirious and hallucinating with altered sensorium. Patient received Zyprexa dose for agitation about 30 minutes prior to this episode. rapid response team was called and patient was eventually transferred to medical floor for further management. Apparently patient has not been sleeping well and does not stressful situation and ongoing foreclosure of her home. No prior history of psychiatric admission. Patient is currently not on any medications at home. She is using kratom and Phenibut at home due to her anxiety. Does vape. Denies any IV injections illicit drug use. CT head showed no acute intracranial process. Air-fluid levels within the right maxillary sinus. Correlate for acute sinusitis. Laboratory data showed WBC 5.4, hemoglobin 10.7 platelets 329 sodium 138 potassium 3.3 chloride 97 bicarb is 31 BUN 21 and creatinine 0.75 and blood sugar 101 liver enzymes are not elevated. UDS on admission positive for propoxyphene on, amphetamines and benzodiazepines. Urinalysis today showed cloudy with trace ketones and nitrite positive and WBCs 8. 10/26/2022 Patient is currently lying in the bed. Still agitated and paradorsal mental status is waxing and waning. Otherwise patient has been afebrile. Continued on as needed Prolixin IM every 6 hourly for agitation. Could not provide any history at this time. Laboratory showed WBC 5.4 hemoglobin 10.8 and platelets 315, sodium 141 potassium 4.0 chloride 102 bicarb is 29 BUN 11 and creatinine 0.6. Neurology recommends EEG which showed background slowing suggestive of mild encephalopathy. No seizure discharges. MRI of the brain to rule out central causes. CT head negative. Patient was started on thiamine IV daily. Current medications reviewed. Objective - Vital Signs Vital signs: Vital Signs Temp 98.5 F 10/26/22 08:00 Pulse 71 10/26/22 16:00 Resp 16 10/26/22 16:00 BP 154/94 10/26/22 16:00 Pulse Ox 94 L 10/26/22 16:00 FiO2 Intake & Output 10/25/22 10/26/22 10/26/22 18:59 06:59 18:59 Intake Total 1220 350 Output Total 1050 Balance 170 350 Intake: Oral 1220 350 Output: Urine 1050 Other: Voiding Method Diaper Bedside Commode Bedside Commode # Voids 1 1 1 # Bowel Movements 1 1 - Exam PHYSICAL EXAMINATION: Patient is lying in the bed. Awake alert and oriented x0. Talking to herself and hallucinating. HEENT: Normocephalic. Neck is supple. Pupils reactive. Nostrils clear. Oral cavity is moist. Neck reveals no JVD, carotid bruits, or thyromegaly. CHEST EXAMINATION: Trachea is central. Symmetrical expansion. Lung petersen clear to auscultation and percussion. CARDIAC: Normal S1, S2 with no gallops. No murmurs ABDOMEN: Soft. Bowel sounds present. Nontender. No organomegaly. No abdominal bruits. Extremities: reveal no edema. No clubbing or cyanosis Neurologically awake, alert, oriented x0. No gross focal neurological deficit. Able to move all extremities. Skin: No rash or skin lesions. Psychiatric: Coperative. Could not be assessed today. Musculoskeletal: No joint swelling or deformity. - Labs CBC & Chem 7: 10/29/22 16:17 10/29/22 16:17 Labs: Abnormal Lab Results - Last 24 Hours (Table) 10/25/22 10/26/22 Range/Units 15:47 07:40 Hgb 10.8 L (11.4-16.0) gm/dL Hct 33.8 L (34.0-46.0) % Lymphocytes # 0.7 L (1.0-4.8) k/uL Vitamin B12 1221.0 H (200.0-944.0) pg/mL Assessment and Plan Assessment: Acute delirium/hallucinations likely due to withdrawal from psychiatry substance use. She is using Kratom and Phenibut. History of anxiety/depression Possible urinary tract infection Acute maxillary sinusitis as per CT head History of sinus surgery Acute urinary retention. resolved DVT prophylax with heparin subcu Plan: Patient is currently being continued on IV hydration with normal saline and Prolixin IM 2.5 mg every 6 hourly as needed for agitation. Patient was started on baclofen 10 mg 3 times daily for withdrawal symptoms as per psychiatry recommendations. Continue with ceftriaxone and follow-up final urine culture report. Continue to follow closely. Continue with constant observer at bedside.. Time with Patient: Greater than 30
--- NOTE | 2022-10-30 02:33 | P.PN ---
Subjective Progress Note Date: 10/27/22 Patient is a 37-year-old female without significant past medical history was admitted to the hospital due to aggressive behavior and delirium/psychosis on 10/19/2022. Patient was initially admitted to mental health unit and is being treated. Yesterday evening patient became delirious and hallucinating with altered sensorium. Patient received Zyprexa dose for agitation about 30 minutes prior to this episode. rapid response team was called and patient was eventually transferred to medical floor for further management. Apparently patient has not been sleeping well and does not stressful situation and ongoing foreclosure of her home. No prior history of psychiatric admission. Patient is currently not on any medications at home. She is using kratom and Phenibut at home due to her anxiety. Does vape. Denies any IV injections illicit drug use. CT head showed no acute intracranial process. Air-fluid levels within the right maxillary sinus. Correlate for acute sinusitis. Laboratory data showed WBC 5.4, hemoglobin 10.7 platelets 329 sodium 138 potassium 3.3 chloride 97 bicarb is 31 BUN 21 and creatinine 0.75 and blood sugar 101 liver enzymes are not elevated. UDS on admission positive for propoxyphene on, amphetamines and benzodiazepines. Urinalysis today showed cloudy with trace ketones and nitrite positive and WBCs 8. 10/26/2022 Patient is currently lying in the bed. Still agitated and paradorsal mental status is waxing and waning. Otherwise patient has been afebrile. Continued on as needed Prolixin IM every 6 hourly for agitation. Could not provide any history at this time. Laboratory showed WBC 5.4 hemoglobin 10.8 and platelets 315, sodium 141 potassium 4.0 chloride 102 bicarb is 29 BUN 11 and creatinine 0.6. Neurology recommends EEG which showed background slowing suggestive of mild encephalopathy. No seizure discharges. MRI of the brain to rule out central causes. CT head negative. Patient was started on thiamine IV daily. 10/27/2022 Patient is currently lying in the bed. Mentation remains the same. Hallucinating and talking to herself. Awake alert oriented x0. Does not follow commands. Patient was able to void spontaneously. Febrile. Continued on ceftriaxone for possible urinary tract infection. Patient is not cooperative for the meeting including MRI. Psychiatry and neurology is on board. Bedside sitter is in place. Current medications reviewed. Objective - Vital Signs Vital signs: Vital Signs Temp 98.2 F 10/27/22 00:00 Pulse 81 10/27/22 16:31 Resp 16 10/27/22 16:31 BP 121/76 10/27/22 16:31 Pulse Ox 95 10/27/22 16:31 FiO2 Intake & Output 10/27/22 10/27/22 10/28/22 06:59 18:59 06:59 Intake Total 118 510 Balance 118 510 Weight 81.5 kg Intake: Oral 118 510 Other: Voiding Method Toilet Toilet # Voids 1 1 # Bowel Movements 1 - Exam PHYSICAL EXAMINATION: Patient is lying in the bed. Awake alert and oriented x0. Talking to herself and hallucinating. HEENT: Normocephalic. Neck is supple. Pupils reactive. Nostrils clear. Oral cavity is moist. Neck reveals no JVD, carotid bruits, or thyromegaly. CHEST EXAMINATION: Trachea is central. Symmetrical expansion. Lung petersen clear to auscultation and percussion. CARDIAC: Normal S1, S2 with no gallops. No murmurs ABDOMEN: Soft. Bowel sounds present. Nontender. No organomegaly. No abdominal bruits. Extremities: reveal no edema. No clubbing or cyanosis Neurologically awake, alert, oriented x0. No gross focal neurological deficit. Able to move all extremities. Skin: No rash or skin lesions. Psychiatric: Coperative. Could not be assessed today. Musculoskeletal: No joint swelling or deformity. - Labs CBC & Chem 7: 10/29/22 16:17 10/29/22 16:17 Assessment and Plan Assessment: Acute delirium/hallucinations likely due to withdrawal from psychiatry substance use. She is using Kratom and Phenibut. History of anxiety/depression Possible urinary tract infection Acute maxillary sinusitis as per CT head History of sinus surgery Acute urinary retention. resolved DVT prophylax with heparin subcu Plan: Patient is currently being continued on IV hydration with normal saline and Prolixin IM 2.5 mg every 6 hourly as needed for agitation. Patient was started on baclofen 10 mg 3 times daily for withdrawal symptoms as per psychiatry recommendations. Continue with ceftriaxone and follow-up final urine culture report. Continue to follow closely. Continue with constant observer at bedside..
--- NOTE | 2022-10-30 02:41 | P.PN ---
Subjective Progress Note Date: 10/28/22 Patient is a 37-year-old female without significant past medical history was admitted to the hospital due to aggressive behavior and delirium/psychosis on 10/19/2022. Patient was initially admitted to mental health unit and is being treated. Yesterday evening patient became delirious and hallucinating with altered sensorium. Patient received Zyprexa dose for agitation about 30 minutes prior to this episode. rapid response team was called and patient was eventually transferred to medical floor for further management. Apparently patient has not been sleeping well and does not stressful situation and ongoing foreclosure of her home. No prior history of psychiatric admission. Patient is currently not on any medications at home. She is using kratom and Phenibut at home due to her anxiety. Does vape. Denies any IV injections illicit drug use. CT head showed no acute intracranial process. Air-fluid levels within the right maxillary sinus. Correlate for acute sinusitis. Laboratory data showed WBC 5.4, hemoglobin 10.7 platelets 329 sodium 138 potassium 3.3 chloride 97 bicarb is 31 BUN 21 and creatinine 0.75 and blood sugar 101 liver enzymes are not elevated. UDS on admission positive for propoxyphene on, amphetamines and benzodiazepines. Urinalysis today showed cloudy with trace ketones and nitrite positive and WBCs 8. 10/26/2022 Patient is currently lying in the bed. Still agitated and paradorsal mental status is waxing and waning. Otherwise patient has been afebrile. Continued on as needed Prolixin IM every 6 hourly for agitation. Could not provide any history at this time. Laboratory showed WBC 5.4 hemoglobin 10.8 and platelets 315, sodium 141 potassium 4.0 chloride 102 bicarb is 29 BUN 11 and creatinine 0.6. Neurology recommends EEG which showed background slowing suggestive of mild encephalopathy. No seizure discharges. MRI of the brain to rule out central causes. CT head negative. Patient was started on thiamine IV daily. 10/27/2022 Patient is currently lying in the bed. Mentation remains the same. Hallucinating and talking to herself. Awake alert oriented x0. Does not follow commands. Patient was able to void spontaneously. Febrile. Continued on ceftriaxone for possible urinary tract infection. Patient is not cooperative for the meeting including MRI. Psychiatry and neurology is on board. Bedside sitter is in place. 10/28/2022. Patient's mentation remains the same. Does not follow commands. Patient does have soft restraints. Bedside sitter is in place. Patient was having diffuse muscle twitches and spasms and abnormal eye movements. Discussed with psychiatry team. Patient has been having with severe withdrawal symptoms for the past 10 days. Possible underlying paraneoplastic/autoimmune pathology is also being considered. Patient was given a dose of Valium IV x110 mg. Was able to get CT of abdomen pelvis without contrast however most from artifact aspect of the quality. MRI with contrast is recommended if there is further concern for ovarian teratoma leading to anti-NMDA receptor encephalitis. Current medications reviewed. Objective - Vital Signs Vital signs: Vital Signs Temp 100.3 F H 10/28/22 12:00 Pulse 77 10/28/22 16:00 Resp 18 10/28/22 16:00 BP 110/76 10/28/22 16:00 Pulse Ox 98 10/28/22 16:00 FiO2 Intake & Output 10/28/22 10/28/22 10/29/22 06:59 18:59 06:59 Intake Total 500 Output Total 600 Balance -100 Intake: Oral 500 Output: Urine 600 Other: Voiding Method Bedside Commode Diaper Diaper # Voids 1 - Exam PHYSICAL EXAMINATION: Patient is lying in the bed. Awake alert and oriented x0. Talking to herself and hallucinating. HEENT: Normocephalic. Neck is supple. Pupils reactive. Nostrils clear. Oral cavity is moist. Neck reveals no JVD, carotid bruits, or thyromegaly. CHEST EXAMINATION: Trachea is central. Symmetrical expansion. Lung petersen clear to auscultation and percussion. CARDIAC: Normal S1, S2 with no gallops. No murmurs ABDOMEN: Soft. Bowel sounds present. Nontender. No organomegaly. No abdominal bruits. Extremities: reveal no edema. No clubbing or cyanosis Neurologically awake, alert, oriented x0. No gross focal neurological deficit. Able to move all extremities. Skin: No rash or skin lesions. Psychiatric: Coperative. Could not be assessed today. Musculoskeletal: No joint swelling or deformity. - Labs CBC & Chem 7: 10/29/22 16:17 10/29/22 16:17 Labs: Abnormal Lab Results - Last 24 Hours (Table) 10/28/22 Range/Units 16:17 Creatine Kinase 642 H (30-135) U/L Microbiology - Last 24 Hours (Table) 10/28/22 02:28 Urine Culture - Preliminary Urine,Voided Assessment and Plan Assessment: Acute delirium/hallucinations likely due to withdrawal from psychiatry substance use. She is using Kratom and Phenibut.Possible paraneoplastic/autoimmune etiologies is also being considered. History of anxiety/depression Possible urinary tract infection Acute maxillary sinusitis as per CT head History of sinus surgery Acute urinary retention. resolved DVT prophylax with heparin subcu Plan: Patient is currently being continued on IV hydration with normal saline and Prolixin IM 2.5 mg every 6 hourly as needed for agitation. Patient was started on baclofen 10 mg 3 times daily for withdrawal symptoms as per psychiatry recommendations. Continue with ceftriaxone and follow-up final urine culture report. Continue to follow closely. Continue with constant observer at bedside.. Discussed with psychiatry team. Patient has been having with severe withdrawal symptoms for the past 10 days. Possible underlying paraneoplastic/autoimmune pathology is also being considered. Patient was given a dose of Valium IV x110 mg. Was able to get CT of abdomen pelvis without contrast however most from artifact aspect of the quality. MRI with contrast is recommended if there is further concern for ovarian teratoma leading to anti-NMDA receptor encephalitis. Consider transferring to ICU for sedation if patient cannot cooperate for MRI under anesthesia. Time with Patient: Greater than 30
--- NOTE | 2022-10-30 02:45 | P.PN ---
Subjective Progress Note Date: 10/29/22 Patient is a 37-year-old female without significant past medical history was admitted to the hospital due to aggressive behavior and delirium/psychosis on 10/19/2022. Patient was initially admitted to mental health unit and is being treated. Yesterday evening patient became delirious and hallucinating with altered sensorium. Patient received Zyprexa dose for agitation about 30 minutes prior to this episode. rapid response team was called and patient was eventually transferred to medical floor for further management. Apparently patient has not been sleeping well and does not stressful situation and ongoing foreclosure of her home. No prior history of psychiatric admission. Patient is currently not on any medications at home. She is using kratom and Phenibut at home due to her anxiety. Does vape. Denies any IV injections illicit drug use. CT head showed no acute intracranial process. Air-fluid levels within the right maxillary sinus. Correlate for acute sinusitis. Laboratory data showed WBC 5.4, hemoglobin 10.7 platelets 329 sodium 138 potassium 3.3 chloride 97 bicarb is 31 BUN 21 and creatinine 0.75 and blood sugar 101 liver enzymes are not elevated. UDS on admission positive for propoxyphene on, amphetamines and benzodiazepines. Urinalysis today showed cloudy with trace ketones and nitrite positive and WBCs 8. 10/26/2022 Patient is currently lying in the bed. Still agitated and paradorsal mental status is waxing and waning. Otherwise patient has been afebrile. Continued on as needed Prolixin IM every 6 hourly for agitation. Could not provide any history at this time. Laboratory showed WBC 5.4 hemoglobin 10.8 and platelets 315, sodium 141 potassium 4.0 chloride 102 bicarb is 29 BUN 11 and creatinine 0.6. Neurology recommends EEG which showed background slowing suggestive of mild encephalopathy. No seizure discharges. MRI of the brain to rule out central causes. CT head negative. Patient was started on thiamine IV daily. 10/27/2022 Patient is currently lying in the bed. Mentation remains the same. Hallucinating and talking to herself. Awake alert oriented x0. Does not follow commands. Patient was able to void spontaneously. Febrile. Continued on ceftriaxone for possible urinary tract infection. Patient is not cooperative for the meeting including MRI. Psychiatry and neurology is on board. Bedside sitter is in place. 10/28/2022. Patient's mentation remains the same. Does not follow commands. Patient does have soft restraints. Bedside sitter is in place. Patient was having diffuse muscle twitches and spasms and abnormal eye movements. Discussed with psychiatry team. Patient has been having with severe withdrawal symptoms for the past 10 days. Possible underlying paraneoplastic/autoimmune pathology is also being considered. Patient was given a dose of Valium IV x110 mg. Was able to get CT of abdomen pelvis without contrast however most from artifact aspect of the quality. MRI with contrast is recommended if there is further concern for ovarian teratoma leading to anti-NMDA receptor encephalitis. 10/29/2022 Patient is more agitated and currently under four-point restraints. Mentation remains the same. Today patient received 2 mg of Ativan prior to lumbar puncture and had to abort the procedure since the patient is restless and agitated. Will discuss with ICU team since patient may require intubation and sedation to to proceed with lumbar puncture. Repeat EEG was ordered as per neurology. Urine culture showed normal rose. Ceftriaxone will be discontinued. Completed 5 days of antibiotics. Laboratory data showed WBC 12.2 hemoglobin 12.0 and platelets 400 sodium 141 potassium 3.9 chloride 106 bicarb is 23 BUN 10 and creatinine 0.65 and CRP less than 5 CPK level 642 Current medications reviewed. Current medications reviewed. Objective - Vital Signs Vital signs: Vital Signs Temp 97.5 F L 10/29/22 20:12 Pulse 95 10/29/22 20:12 Resp 18 10/29/22 20:12 BP 124/51 10/29/22 20:12 Pulse Ox 95 10/29/22 20:12 FiO2 Intake & Output 10/29/22 10/29/22 10/30/22 06:59 18:59 06:59 Other: Voiding Method Diaper Diaper - Exam PHYSICAL EXAMINATION: Patient is lying in the bed. Awake alert and oriented x0. Talking to herself and hallucinating. HEENT: Normocephalic. Neck is supple. Pupils reactive. Nostrils clear. Oral cavity is moist. Neck reveals no JVD, carotid bruits, or thyromegaly. CHEST EXAMINATION: Trachea is central. Symmetrical expansion. Lung petersen clear to auscultation and percussion. CARDIAC: Normal S1, S2 with no gallops. No murmurs ABDOMEN: Soft. Bowel sounds present. Nontender. No organomegaly. No abdominal bruits. Extremities: reveal no edema. No clubbing or cyanosis Neurologically awake, alert, oriented x0. No gross focal neurological deficit. Able to move all extremities. Skin: No rash or skin lesions. Psychiatric: Coperative. Could not be assessed today. Musculoskeletal: No joint swelling or deformity. - Labs CBC & Chem 7: 10/29/22 16:17 10/29/22 16:17 Labs: Abnormal Lab Results - Last 24 Hours (Table) 10/29/22 10/29/22 Range/Units 16:17 16:17 WBC 12.2 H (3.8-10.6) k/uL Neutrophils # 9.4 H (1.3-7.7) k/uL AST 38 H (14-36) U/L Microbiology - Last 24 Hours (Table) 10/28/22 02:28 Urine Culture - Final Urine,Voided Assessment and Plan Assessment: Acute delirium/hallucinations likely due to withdrawal from psychiatry substance use. She is using Kratom and Phenibut.Possible paraneoplastic/autoimmune etiologies is also being considered. History of anxiety/depression Possible urinary tract infection Acute maxillary sinusitis as per CT head History of sinus surgery Acute urinary retention. resolved DVT prophylax with heparin subcu Plan: Patient is currently being continued on IV hydration with normal saline and Prolixin IM 2.5 mg every 6 hourly as needed for agitation. Patient was started on baclofen 10 mg 3 times daily for withdrawal symptoms as per psychiatry recommendations. Continue with ceftriaxone and follow-up final urine culture report. Continue to follow closely. Continue with constant observer at bedside.. Discussed with psychiatry team. Patient has been having with severe withdrawal symptoms for the past 10 days. Possible underlying paraneoplastic/autoimmune pathology is also being considered. Patient was given a dose of Valium IV x110 mg. Was able to get CT of abdomen pelvis without contrast however most from artifact aspect of the quality. MRI with contrast is recommended if there is further concern for ovarian teratoma leading to anti-NMDA receptor encephalitis. Consider transferring to ICU for sedation if patient cannot cooperate for MRI under anesthesia. Will discuss with ICU team since patient may require intubation and sedation to to proceed with lumbar puncture. Repeat EEG was ordered as per neurology. Time with Patient: Greater than 30
[2022-10-30 06:12] LABS: Glucose,Whole Blood 58 mg/dL (70-110)
[2022-10-30] MEDS ORDERED: DEXTROSE 50% SYRINGE 50 ML IVP STA (06:14)
[2022-10-30 06:38] LABS: Glucose,Whole Blood 207 mg/dL (70-110)
[2022-10-30 11:49] LABS: Basophils % (A) 0 %; Eosinophils # (A) 0.1 k/uL (0-0.7); Eosinophils % (A) 1 %; HCT 38.9 % (34.0-46.0); HGB 12.3 gm/dL (11.4-16.0); Hypochromasia Slight; Lymphocytes # (A) 0.8 k/uL (1.0-4.8); Lymphocytes % (A) 5 %; MCH 26.3 pg (25.0-35.0); MCHC 31.7 g/dL (31.0-37.0); Mean Platelet Volume 7.2; Monocytes # (A) 0.6 k/uL (0-1.0); Monocytes % (A) 4 %; Neutrophils % (A) 89 %; Platelet Count 378 k/uL (150-450); RBC 4.69 m/uL (3.80-5.40); RDW 15.4 % (11.5-15.5); WBC 15.6 k/uL (3.8-10.6)
[2022-10-30 11:50] LABS: Glucose,Whole Blood 60 mg/dL (70-110)
[2022-10-30] MEDS: HEPARIN SODIUM,PORCINE/PF 5,000 UNIT/0.5 ML SYRINGE SQ SCH ×2 (11:52→22:22)
[2022-10-30] MEDS: BACLOFEN 10 MG TAB PO SCH ×3 (11:52→22:37)
[2022-10-30] MEDS: MONTELUKAST 10 MG TAB PO SCH (11:52)
[2022-10-30] MEDS: THIAMINE 100 MG/ML 2 ML VIAL IVP SCH (11:52)
[2022-10-30 11:55] LABS: ALT 31 U/L (4-34); AST 32 U/L (14-36); African American GFR (CKD) >90 (>60 ml/min/1.73 sqM); Albumin 4.7 g/dL (3.5-5.0); Alkaline Phosphatase 70 U/L (38-126); Anion Gap 12 mmol/L; Bilirubin, Delta 0.1 mg/dL (0.0-0.2); Bilirubin,Unconjugated 0.5 mg/dL (0.0-1.1); Blood Urea Nitrogen 14 mg/dL (7-17); Calcium 9.5 mg/dL (8.4-10.2); Carbon Dioxide 26 mmol/L (22-30); Chloride 105 mmol/L (98-107); Creatine Kinase 355 U/L (30-135); Glucose 62 mg/dL (74-99); Non-African American GFR(CKD) >90 (>60 ml/min/1.73 sqM); Potassium 3.9 mmol/L (3.5-5.1); Sodium 143 mmol/L (137-145); Total Bilirubin 0.6 mg/dL (0.2-1.3); Total Protein 7.4 g/dL (6.3-8.2)
[2022-10-30 12:16] LABS: HCG,Qualitative Serum Not Detected
[2022-10-30 12:21] LABS: Glucose,Whole Blood 63 mg/dL (70-110)
[2022-10-30 12:30] LABS: Glucose,Whole Blood 84 mg/dL (70-110)
--- NOTE | 2022-10-30 13:31 | XR ---
EXAMINATION TYPE: XR chest 1V DATE OF EXAM: 10/30/2022 COMPARISON: NONE HISTORY: Fever. TECHNIQUE: Single AP portable frontal semiupright view of the chest is obtained. FINDINGS: There is no focal air space opacity, pleural effusion, or pneumothorax seen. The cardiac silhouette size is upper limits of normal. The osseous structures are intact. IMPRESSION: No acute pulmonary infiltrate.
[2022-10-30] MEDS ORDERED: VANCOMYCIN IV PER PHARMACY 1 EACH MISC MISCELLANE PRN (15:16)
[2022-10-30] MEDS ORDERED: VANCOMYCIN 1,500 MG in SODIUM CHLORIDE 0.9% 500 ML 500 ML IVPB STA (15:24)
[2022-10-30] MEDS: SODIUM CHLORIDE 0.9% 1,000 ML IV SCH (15:35)
--- NOTE | 2022-10-30 16:06 | P.PN ---
Subjective Progress Note Date: 10/30/22 Patient initially seen by Dr. Hector Maher. Please refer to his note for details. Patient is a 37-year-old female, admitted with acute psychosis. Psychiatry and board. Patient needs spinal fluid and MRI, but patient has been not cooperative. Lumbar puncture was attempted twice but patient was restless and did not cooperate. Patient had undergone prolonged EEG testing today. Patient was seen for a follow-up. Patient states "I don't feel good" however for headache, she denies any headache. On asking repeated questions, patient states "leave me alone". On asking more questions, patient stated "stop". Patient became slightly irritable, started using foul language. The sitter was present throughout this encounter. Patient has a tattoo on the right dorsum of the foot. On asking what it is, patient states it's the "sign of harmony". I spoke to patient's mother, who mentions that patient has history of anxiety when she was around 20. She then has some depression after her se cond 6 years ago. The first at age 20 and was put on adoption. Patient does have contact with her adopted child. Patient does have history of some abuse of Kratom and phenibut, but nothing else that patient's mother knows about. Some history of alcohol, but not to the point of abuse. SOME OF THE WORK-UP DURING THIS HOSPITAL VISIT CONSISTED OF: So far the patient has been afebrile. Blood cells 5.7 thousand which is within normal limits Ammonia level is less than 9. Calcium, sodium, creatinine, TSH is within normal limits. Folate is 26.6 Vitamin B12 is 1221 CT of the head is reported as no acute intracranial processes. Follow-up MRI c an be performed as clinically indicated. Air fluid level within the right maxillary sinus. Correlate for acute sinusitis. Urine drug screen initially when she presented to ED was positive for propo xyphene, amphetamine and benzo. Treponema pallidum antibody was nonreactive. BHARTI is negative [id number] DNA antibodies negative Pelvic ultrasound is reported as no evidence for acute process. No teratoma visualized by this not refer within the images. CT abdomen and pelvis is reported as significant motion artifact limiting evaluation. No abdomen mass visualized on this noncontrast limited exam. No evidence for acute processes visualized on this noncontrast limited exam Objective - Vital Signs Vital signs: Vital Signs Temp 98.7 F 10/30/22 11:50 Pulse 82 10/30/22 11:50 Resp 14 10/30/22 11:50 BP 127/78 10/30/22 11:50 Pulse Ox 98 10/30/22 11:50 FiO2 Intake & Output 10/29/22 10/30/22 10/30/22 18:59 06:59 18:59 Other: Voiding Method Diaper Diaper Diaper # Voids 2 - Exam Patient is a young female, who is laying in the bed, appears comfortable. Patient is not in any distress. Patient is sleeping, when she is tried to wake up, patient mumbles. Patient states "I don't feel good", but denies any headache. Patient states "leave me in the bedroom". Patient mumbles. Speech is slightly slurred, often difficult to understand. Language functions could not be tested. No obvious aphasia. Attention, concentration and fund of knowledge is \\very limited. On cranial nerve examination, pupils are equal, round and reacting to light. Visual petersen could not be tested as patient would not cooperate. Her left eye has some injected conjunctiva in the upper nasal side of the eye. Her face is symmetric. Tongue protrudes the midline. No evidence of oral trauma. Rest of the cranial nerves could not be tested. On muscle strength testing, there is no pronator drift. 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 Her strength in the lower extremities also appears fairly normal. Deep tendon reflexes are symmetric 1+ to 2+ in the arms and legs and plantars are downgoing. Sensory to touch cannot be assessed. She withdraws to painful stimuli equally. Cerebellar function cannot be tested. Tone and bulk of muscles normal. No obvious twitching, tremors. Gait deferred.. On general examination, there is no carotid bruit or murmur, S1-S2 audible. Chest is clear on consultation. Abdomen is soft nontender. No organomegaly, bowel sounds present. Peripheral pulses are present. No edema. Patient has multiple bruises over her dorsum of the hand, and in the lower legs. Patient's neck is supple. - Labs CBC & Chem 7: 10/30/22 11:27 10/30/22 11:27 Labs: Abnormal Lab Results - Last 24 Hours (Table) 10/29/22 10/29/22 10/30/22 Range/Units 16:17 16:17 06:10 WBC 12.2 H (3.8-10.6) k/uL Neutrophils # 9.4 H (1.3-7.7) k/uL Lymphocytes # (1.0-4.8) k/uL Glucose (74-99) mg/dL POC Glucose (mg/dL) 58 L (70-110) mg/dL AST 38 H (14-36) U/L Creatine Kinase (30-135) U/L 10/30/22 10/30/22 10/30/22 Range/Units 06:37 11:27 11:27 WBC 15.6 H (3.8-10.6) k/uL Neutrophils # 14.0 H (1.3-7.7) k/uL Lymphocytes # 0.8 L (1.0-4.8) k/uL Glucose 62 L (74-99) mg/dL POC Glucose (mg/dL) 207 H (70-110) mg/dL AST (14-36) U/L Creatine Kinase 355 H (30-135) U/L 10/30/22 10/30/22 Range/Units 11:40 12:01 WBC (3.8-10.6) k/uL Neutrophils # (1.3-7.7) k/uL Lymphocytes # (1.0-4.8) k/uL Glucose (74-99) mg/dL POC Glucose (mg/dL) 60 L 63 L (70-110) mg/dL AST (14-36) U/L Creatine Kinase (30-135) U/L Microbiology - Last 24 Hours (Table) 10/28/22 02:28 Urine Culture - Final Urine,Voided Assessment and Plan Assessment: Delirium likely due subsutance abuse (Kratom and phenibut). Rule out any central causes such as autoimmune disease explaining her symptoms: So far EEG is negative for seizure or discharges, negative BHARTI, syphilis testing, normal Vitamin B12, folate, TSH and ammonia level. Had one low dose fever on 10/28/22 of 100.3 after 4 days in this admission but otherwise afebrile and no leukocytosis. History of depression and anxiety Possible substance abuse. Plan: Routine EEG: Is abnormal. The background slowing is suggestive of mild encephalopathy. Otherwise, no seizure or discharges. Prolonged EEG performed today, preliminary report showed mainly sleep pattern EEG with no significant abnormality. Official report pending. Pending MRI of the brain to rule out any central cause such as a mass or other causes of central cause. CT brain was negative. Patient cannot lay still for MRI. Pending anti NMDA. Lumbar puncture was attempted twice in the past, but was unsuccessful. Patient may need lumbar puncture under general anesthesia. Dr. Maher has spoken with psychiatrist and she is in agreement. Pending Herpes 1/2, HIV. Ordered HIV 1/2 PCR. Ck level is mildly elevated 642 and repeat CK 355, improved. Repeat CT head upon heavily sedation. On thiamine 100 mg IV daily. We'll defer the rest of the management to the psychiatry team Discussed with patient's mother in detail.
[2022-10-30 16:31] LABS: Glucose,Whole Blood 112 mg/dL (70-110)
[2022-10-30] MEDS: ACYCLOVIR SODIUM 800 MG in SODIUM CHLORIDE 0.9% 250 ML IVPB SCH ×2 (16:45→23:19)
[2022-10-30] MEDS ORDERED: DEXTROSE 50% SYRINGE 50 ML IVP PRN (18:19)
--- NOTE | 2022-10-30 18:25 | P.PN ---
Subjective From previous records Patient is a 37-year-old female without significant past medical history was admitted to the hospital due to aggressive behavior and delirium/psychosis on 10/19/2022. Patient was initially admitted to mental health unit and is being treated. Yesterday evening patient became delirious and hallucinating with altered sensorium. Patient received Zyprexa dose for agitation about 30 minutes prior to this episode. rapid response team was called and patient was eventually transferred to medical floor for further management. Apparently patient has not been sleeping well and does not stressful situation and ongoing foreclosure of her home. No prior history of psychiatric admission. Patient is currently not on any medications at home. She is using kratom and Phenibut at home due to her anxiety. Does vape. Denies any IV injections illicit drug use. CT head showed no acute intracranial process. Air-fluid levels within the right maxillary sinus. Correlate for acute sinusitis. Laboratory data showed WBC 5.4, hemoglobin 10.7 platelets 329 sodium 138 potassium 3.3 chloride 97 bicarb is 31 BUN 21 and creatinine 0.75 and blood sugar 101 liver enzymes are not elevated. UDS on admission positive for propoxyphene on, amphetamines and benzodiazepines. Urinalysis today showed cloudy with trace ketones and nitrite positive and WBCs 8. 10/26/2022 Patient is currently lying in the bed. Still agitated and paradorsal mental status is waxing and waning. Otherwise patient has been afebrile. Continued on as needed Prolixin IM every 6 hourly for agitation. Could not provide any history at this time. Laboratory showed WBC 5.4 hemoglobin 10.8 and platelets 315, sodium 141 potassium 4.0 chloride 102 bicarb is 29 BUN 11 and creatinine 0.6. Neurology recommends EEG which showed background slowing suggestive of mild enc ephalopathy. No seizure discharges. MRI of the brain to rule out central causes. CT head negative. Patient was started on thiamine IV daily. 10/27/2022 Patient is currently lying in the bed. Mentation remains the same. Hallucinating and talking to herself. Awake alert oriented x0. Does not follow commands. Patient was able to void spontaneously. Febrile. Continued on ceftriaxone for possible urinary tract infection. Patient is not cooperative for the meeting including MRI. Psychiatry and neurology is on board. Bedside sitter is in place. 10/28/2022. Patient's mentation remains the same. Does not follow commands. Patient does have soft restraints. Bedside sitter is in place. Patient was having diffuse muscle twitches and spasms and abnormal eye movements. Discussed with psychiatry team. Patient has been having with severe withdrawal symptoms for the past 10 days. Possible underlying paraneoplastic/autoimmune pathology is also being considered. Patient was given a dose of Valium IV x110 mg. Was able to get CT of abdomen pelvis without contrast however most from artifact aspect of the quality. MRI with contrast is recommended if there is further concern for ovarian t eratoma leading to anti-NMDA receptor encephalitis. 10/29/2022 Patient is more agitated and currently under four-point restraints. Mentation remains the same. Today patient received 2 mg of Ativan prior to lumbar puncture and had to abort the procedure since the patient is restless and agitated. Will discuss with ICU team since patient may require intubation and sedation to to proceed with lumbar puncture. Repeat EEG was ordered as per neurology. Urine culture showed normal rose. Ceftriaxone will be discontinued. Completed 5 days of antibiotics. Laboratory data showed WBC 12.2 hemoglobin 12.0 and platelets 400 sodium 141 potassium 3.9 chloride 106 bicarb is 23 BUN 10 and creatinine 0.65 and CRP less than 5 CPK level 642 I'm resuming the care of the patient today on 10/2922 This is a 37 years old female who was initially admitted to the site units for possible psychosis and delirium however she became more altered mental status and ID team was called and patient was transferred to the general medical floor. Patient is suspected to have metabolic/toxic encephalopathy secondary to substance abuse and withdrawal as patient was using Kratom and phenibut. Patient Patient was closely by psychiatry and neurology service was treated with benzodiazepines, as well as baclofen, Cogentin and Prolixin. Patient remained confused and she was agitated, she has to be placed on the restrained. This morning I discussed the case with the bedside nurse who told me this is the first time she is calm down significantly, patient today during my evaluation she was lying in bed, sleeping, confused, calm, looks relaxed. No abnormal movements. No restraints. She has mild bruises on her legs. Looks healing. No other information was obtained from the patient. She is hemodynamically stable, however she had fever 100 and 1. 2 yesterday and 100.3 one day earlier. Also patient has worsening leukocytosis from 5.5 up to 12 K up to 15.6 k today. Lumbar puncture could not be obtained because of her agitated status also MRI of the brain is pending, today is not available because its holiday In this facility. Her sugar was slightly low and improved with oral juice, therefore we switched her normal saline up to D5 normal saline at 75 mL/h I am going to increase the rate to 100 mL per hour. Also will increase her Accu-Chek every 4 hours and give D50 when necessary for glucose less than 80 mg per dcL Because of her fever and leukocytosis we consulted infectious disease team was going to order it may take was suspected to have UTI and she was placed on ceftriaxone. But it was stopped yesterdat because urine culture came back negative. We ordered a chest x-ray which was unremarkable. Sitter at bedside Active Medications Generic Name Dose Route Start Last Admin Trade Name Freq PRN Reason Stop Dose Admin Acetaminophen 650 mg 10/24/22 20:33 10/29/22 15:58 Acetaminophen Tab 325 Mg Tab PO 650 mg Q6HR PRN Administration Fever and/ or Mild Pain Albuterol Sulfate 2.5 mg 10/25/22 09:26 Albuterol Nebulized 2.5 Mg/3 Ml INHALATION RT-Q6H PRN Shortness Of Breath Baclofen 10 mg 10/25/22 16:00 10/30/22 16:45 Baclofen 10 Mg Tab PO 10 mg TID PAM Administration Benztropine Mesylate 0.5 mg 10/25/22 13:26 10/28/22 08:57 Benztropine 2 Mg/2 Ml Amp IM 0.5 mg Q8HR PRN Administration eps prophylaxis Dextrose/Water 50 ml 10/30/22 18:19 Dextrose 50% Syringe 50 Ml IVP ONCE PRN Hypoglycemia Diazepam 10 mg 10/30/22 02:37 Diazepam 5 Mg/Ml 2 Ml Inj IVP Q8HR PRN Muscle Spasm Fluphenazine HCl 5 mg 10/26/22 14:24 10/28/22 08:56 Fluphenazine 2.5 Mg/Ml (Mdv) 10 Ml Vial IM 5 mg Q6HR PRN Administration Agitation Haloperidol Lactate 5 mg 10/30/22 00:00 10/30/22 16:41 Haloperidol Lactate 5 Mg/Ml 1 Ml Vial IM Not Given Q6HR PAM Heparin Sodium (Porcine) 5,000 unit 10/24/22 21:00 10/30/22 11:52 Heparin Sodium,Porcine/Pf 5,000 Unit/0.5 Ml Syringe SQ 5,000 unit Q12HR PAM Administration Dextrose/Sodium Chloride 1,000 mls @ 100 mls/hr 10/30/22 12:30 Dextrose 5%-Ns Iv Soln IV .Q10H PAM Acyclovir Sodium 800 mg/ 266 mls @ 266 mls/hr 10/30/22 16:00 10/30/22 16:45 Sodium Chloride IVPB 266 mls/hr Q8HR PAM Administration Protocol Ceftriaxone Sodium 2 gm/ 50 mls @ 100 mls/hr 10/30/22 21:00 Sodium Chloride IVPB Q12HR PAM Protocol Vancomycin HCl 1,500 mg/ 500 mls @ 167 mls/hr 10/30/22 15:24 Sodium Chloride IVPB 10/30/22 18:23 ONCE STA Miscellaneous Information 1 each 10/25/22 09:32 Potassium Replacement Protocol 1 Each Misc MISCELLANE DAILY PRN Per Protocol Protocol Miscellaneous Information 1 each 10/30/22 15:16 Vancomycin Iv Per Pharmacy 1 Each Misc MISCELLANE DIRECTED PRN Per Protocol Protocol Montelukast Sodium 10 mg 10/25/22 09:30 10/30/22 11:52 Montelukast 10 Mg Tab PO 10 mg DAILY PAM Administration Thiamine HCl 100 mg 10/25/22 15:15 10/30/22 11:52 Thiamine 100 Mg/Ml 2 Ml Vial IVP 100 mg DAILY PAM Administration Objective - Vital Signs Vital signs: Vital Signs Temp 98.7 F 10/30/22 11:50 Pulse 82 10/30/22 11:50 Resp 14 10/30/22 11:50 BP 127/78 10/30/22 11:50 Pulse Ox 98 10/30/22 11:50 FiO2 Intake & Output 10/29/22 10/30/22 10/30/22 18:59 06:59 18:59 Other: Voiding Method Diaper Diaper Diaper # Voids 2 - Exam -GENERAL: The patient is confused, delirious and sleepy, not in any acute distress. Well developed, well nourished. HEENT: Pupils are round and equally reacting to light. EOMI. No scleral icterus. No conjunctival pallor. Normocephalic, atraumatic. No pharyngeal erythema. No thyromegaly. CARDIOVASCULAR: S1 and S2 present. No murmurs, rubs, or gallops. PULMONARY: Chest is clear to auscultation, no wheezing . no crackles. ABDOMEN: Soft, nontender, nondistended, normoactive bowel sounds. No palpable organomegaly. MUSCULOSKELETAL: No joint swelling or deformity. EXTREMITIES: No cyanosis, clubbing, or pedal edema. NEUROLOGICAL: Gross neurological examination did not reveal any focal deficits. SKIN: No rashes. no petechiae. - Labs CBC & Chem 7: 10/30/22 11:27 10/30/22 11:27 Labs: Abnormal Lab Results - Last 24 Hours (Table) 10/29/22 10/29/22 10/30/22 Range/Units 16:17 16:17 06:10 WBC 12.2 H (3.8-10.6) k/uL Neutrophils # 9.4 H (1.3-7.7) k/uL Lymphocytes # (1.0-4.8) k/uL Glucose (74-99) mg/dL POC Glucose (mg/dL) 58 L (70-110) mg/dL AST 38 H (14-36) U/L Creatine Kinase (30-135) U/L 10/30/22 10/30/22 10/30/22 Range/Units 06:37 11:27 11:27 WBC 15.6 H (3.8-10.6) k/uL Neutrophils # 14.0 H (1.3-7.7) k/uL Lymphocytes # 0.8 L (1.0-4.8) k/uL Glucose 62 L (74-99) mg/dL POC Glucose (mg/dL) 207 H (70-110) mg/dL AST (14-36) U/L Creatine Kinase 355 H (30-135) U/L 10/30/22 10/30/22 Range/Units 11:40 12:01 WBC (3.8-10.6) k/uL Neutrophils # (1.3-7.7) k/uL Lymphocytes # (1.0-4.8) k/uL Glucose (74-99) mg/dL POC Glucose (mg/dL) 60 L 63 L (70-110) mg/dL AST (14-36) U/L Creatine Kinase (30-135) U/L Microbiology - Last 24 Hours (Table) 10/28/22 02:28 Urine Culture - Final Urine,Voided Assessment and Plan Assessment: -Acute delirium/hallucinations likely due to withdrawal from psychiatry substan ce use.(Kratom and Phenibut), Possible paraneoplastic/autoimmune etiologies is also being considered. Rule out intraperitoneal infection -Metabolic/toxic encephalopathy secondary to above. -Hypoglycemia secondary to above -History of anxiety/depression -Possible urinary tract infection -Acute maxillary sinusitis as per CT head -History of sinus surgery -Acute urinary retention. resolved Plan: Change her fluids to D5 normal saline and decrease the rate of 100 mL per hour. Accu-Cheks every 4 hours. D50 when necessary. Monitor glucose closely Consults infectious, and I agree with broad spectrum antibiotic ,consult general anesthesia for lumbar puncture Neurology and psychiatry team on the case Further workup by neurologist is pending including NMDA test Continue with IV fluids Labs and medication were reviewed.. Continue same treatment. Continue with symptomatic treatment. Resume home medication. Monitor labs and vitals. DVT and GI prophylaxis. Further recommendations as per clinical course of the patient DVT prophylaxis: Subcutaneous heparin GI Prophylaxis: Pepcid PT/OT: Deferred osis is guarded
[2022-10-30] MEDS: DEXTROSE 5%-0.9% NACL 1,000 ML IV SCH (18:54)
--- NOTE | 2022-10-30 19:42 | P.CONS ---
History of Present Illness - Reason for Consult Consult date: 10/30/22 Fever Requesting physician: Luis F E Sheet - Chief Complaint Mental status changes x few days - History of Present Illness Patient is a 37-year-old female with past medical history sniffing for mild asthma patient was brought into the ER at [facility] for evaluation of hallucination and altered mentation apparently patient was recently admitted to the mental health unit and treated for delirium and psychosis on 10/19/2022 patient subsequent becoming delirious hallucinating after receiving Zyprexa and rapid team was called and the patient was transferred to the medical floor for further management patient on admission to the hospital was afebrile that was on 10/24/2022 she did have a low-grade 100.3 on 10/28/2022 and did spike a fever of 101.23 for an height yesterday afternoon patient not tachycardic or hypotensive and not requiring any supplemental oxygen patient did have a normal white count initially however the white count has been trending up to 12.2 on 528 it is up to 15.6 today that has prompted this infectious disease consultation patient did have a UA on 524 that was negative patient did have a CT of the brain that has been negative for any bleed abdominal pelvis CT significant motion artifact limits evaluation however no evidence of any acute process visualized chest x-ray obtained this afternoon no acute pulmonary infiltrate patient has been up for lumbar strain that seem to have been loosened with a sitter at the bedside most information has been obtained from review the chart and talking to the mother patient however was able to tell me that she is at the hospital in fourth grade. Did have some headache unable to elaborate any further no vomiting or diarrhea has been reported Review of Systems Positive point and negatives has been mentioned in the HPI, complete review of systems was performed and all other systems are negative Past Medical History Past Medical History: Asthma Additional Past Medical History / Comment(s): Patient has a history of migraine headaches; possible fibromyalgia per mom History of Any Multi-Drug Resistant Organisms: None Reported Past Surgical History: Orthopedic Surgery Additional Past Surgical History / Comment(s): Patient has had sinus surgery, and reconstruction surgery of her right knee Past Anesthesia/Blood Transfusion Reactions: No Reported Reaction Past Psychological History: No Psychological Hx Reported Smoking Status: Never smoker, Unknown if ever smoked Past Alcohol Use History: Occasional Additional Drug Use History / Comment(s): Kratom Medications and Allergies Home Medications Medication Instructions Recorded Confirmed Type Albuterol Inhaler [Ventolin Hfa 2 puff INHALATION RT-Q6H PRN 10/19/22 10/24/22 History Inhaler] Cholecalciferol (Vitamin D3) 1,250 mcg PO WEEKLY 10/19/22 10/24/22 History [Decara (50,000 Iu)] LORazepam [Ativan] 0.5 mg PO DAILY PRN 10/19/22 10/24/22 History Montelukast [Singulair] 10 mg PO DAILY 10/19/22 10/24/22 History Pseudoephedrine 12Hr [Sudafed 12 120 mg PO Q12HR PRN 10/19/22 10/24/22 History Hour] Amoxic-Pot Clav 875-125Mg 1 each PO Q12HR 5 Days #10 tab 11/04/22 Rx [Augmentin 875-125] Escitalopram [Lexapro] 10 mg PO DAILY #30 tab 11/04/22 Rx busPIRone HCl [Buspar] 10 mg PO BID #30 tab 11/04/22 Rx traZODone HCL [Desyrel] 50 mg PO HS PRN #30 tab 11/04/22 Rx Allergies Allergy/AdvReac Type Severity Reaction Status Date / Time Latex, Natural Rubber Allergy Itching Verified 10/19/22 11:07 Physical Exam Vitals: Vital Signs Temp Pulse Resp BP Pulse Ox 10/30/22 11:50 98.7 F 82 14 127/78 98 10/30/22 07:55 98.9 F 75 16 122/72 96 10/30/22 05:53 97.7 F 82 18 136/81 98 10/29/22 23:14 98.2 F 73 18 115/82 94 L 10/29/22 20:12 97.5 F L 95 18 124/51 95 10/29/22 15:50 101.2 F H 104 H 18 121/69 95 Intake and Output 10/29/22 10/30/22 10/30/22 22:59 06:59 14:59 Other: Voiding Method Diaper Diaper Diaper # Voids 2 GENERAL DESCRIPTION: Middle-aged female lying in bed, no distress. No tachypnea or accessory muscle of respiration use. HEENT: Shows Pallor , no scleral icterus. Oral mucous membrane is dry. NECK: Trachea central, no thyromegaly. LUNGS: Unlabored breathing. Clear to auscultation anteriorly. No wheeze or crackle. HEART: S1, S2, regular rate and rhythm. No loud murmur ABDOMEN: Soft, no tenderness , guarding or rigidity, no organomegaly EXTREMITIES: No edema of feet. SKIN: No rash, no masses palpable. NEUROLOGICAL: The patient is lethargic orientation could not be determined Results CBC & Chem 7: 11/03/22 06:08 11/04/22 05:46 Labs: Abnormal Lab Results - Last 24 Hours (Table) 10/29/22 10/29/22 10/30/22 Range/Units 16:17 16:17 06:10 WBC 12.2 H (3.8-10.6) k/uL Neutrophils # 9.4 H (1.3-7.7) k/uL Lymphocytes # (1.0-4.8) k/uL Glucose (74-99) mg/dL POC Glucose (mg/dL) 58 L (70-110) mg/dL AST 38 H (14-36) U/L Creatine Kinase (30-135) U/L 10/30/22 10/30/22 10/30/22 Range/Units 06:37 11:27 11:27 WBC 15.6 H (3.8-10.6) k/uL Neutrophils # 14.0 H (1.3-7.7) k/uL Lymphocytes # 0.8 L (1.0-4.8) k/uL Glucose 62 L (74-99) mg/dL POC Glucose (mg/dL) 207 H (70-110) mg/dL AST (14-36) U/L Creatine Kinase 355 H (30-135) U/L 10/30/22 10/30/22 Range/Units 11:40 12:01 WBC (3.8-10.6) k/uL Neutrophils # (1.3-7.7) k/uL Lymphocytes # (1.0-4.8) k/uL Glucose (74-99) mg/dL POC Glucose (mg/dL) 60 L 63 L (70-110) mg/dL AST (14-36) U/L Creatine Kinase (30-135) U/L Microbiology - Last 24 Hours (Table) 10/28/22 02:28 Urine Culture - Final Urine,Voided Assessment and Plan (1) Fever Status: Acute Code(s): R50.9 - FEVER, UNSPECIFIED SNOMED Code(s): 155124060 Plan: 1patient with SIRS in this patient who did have a fever elevated white count predominantly with mental status/CASING CLEANER symptoms with concern for possible cellulitis versus meningitis patient lungs were clear to auscultation chest x- ray was negative abdomen is soft seen abdominal pelvis did not show acute normality no evidence of any joint swelling or cellulitis 2-we are waiting for the LP to be completed CSF should be sent for cell count differential glucose protein HSV DNA by PCR 3-we will obtain blood cultures CRP procalcitonin influenza COVID PCR to complete the work-up 4-empirically start the patient on vancomycin Rocephin and acyclovir while waiting for the work-up to be completed Mother at the bedside questions concerns answered We will follow on clinical condition and cultures to further adjust medication if needed Thank you for this consultation we will follow the patient along with you Time with Patient: Greater than 30
[2022-10-30 20:01] LABS: Glucose,Whole Blood 102 mg/dL (70-110)
--- NOTE | 2022-10-30 22:41 | EEG ---
ELECTROENCEPHALOGRAM REPORT ELECTROENCEPHALOGRAM (EEG) REPORT: TECHNIQUE: This is a report from a prolonged 2-1/2 hour outpatient digital EEG performed using the 10/20 international electrode placement system. HISTORY: Worsening confusion, combativeness, aggression. CURRENT MEDICATIONS: 1. Tylenol. 2. Albuterol. 3. Lioresal. 4. Cogentin. 5. Valium. 6. Prolixin. 7. Haldol. 8. Others. FINDINGS: Recording start time: 10/30/2022 at 07:55 a.m. Recording end time: 10/30/2022 at 10:50 a.m. EVENTS: During this 2-1/2 hour inpatient video EEG recording, no clinical or electrographic seizures were recorded. BACKGROUND: Please note that the patient was drowsy or asleep for essentially this entire recording. During the brief less than 1 minute period of increased alertness, background frequencies were seen in the 7 to 8 hertz range. ACTIVATION: Hyperventilation: Not performed. Photic stimulation: Not performed. Sleep: Stages I and II sleep noted. ABNORMALITIES: None. IMPRESSION: Limited study. Essentially sleep EEG. No clinical or electrographic seizures were recorded. No epileptiform activity was present. During the 1 very short period of increased alertness, with movement, background frequencies were seen in the 7 to 8 hertz range with superimposed faster, beta frequencies. Some diffuse theta range slowing was seen more anteriorly. These findings suggest mild diffuse cerebral dysfunction. These findings were called to the consulting neurologist at 11:15 a.m. on 10/30/2022. Clinical correlation is recommended. Please note that there were some additional periods of increased arousal that is associated with movement where the findings above were the same, background frequencies in the 7 to 8 hertz range and some intermittent diffuse theta range slowing. MMODL / IJN: [id number] /
[2022-10-30 23:55] LABS: Glucose,Whole Blood 93 mg/dL (70-110)
[2022-10-31] MEDS: DEXTROSE 5%-0.9% NACL 1,000 ML IV SCH ×2 (02:45→11:16)
[2022-10-31] MEDS: HALOPERIDOL LACTATE 5 MG/ML 1 ML VIAL IM SCH ×5 (02:45→23:19)
[2022-10-31] MEDS: VANCOMYCIN 1,500 MG in SODIUM CHLORIDE 0.9% 500 ML 500 ML IVPB SCH ×2 (02:48→11:16)
[2022-10-31 04:02] LABS: Glucose,Whole Blood 88 mg/dL (70-110)
[2022-10-31 06:43] LABS: Appearance,Urine Cloudy (Clear); Bacteria,Urine Occasional /hpf; Bilirubin,Urine Negative (Negative); Blood,Urine Negative (Negative); Color,Urine Yellow; Glucose,Urine (UA) Negative (Negative); Ketones,Urine 1+ (Negative); Leukocyte Esterase,Urine Small (Negative); Mucus,Urine Many /hpf; Nitrite,Urine Negative (Negative); PH, Urine 5.5 (5.0-8.0); Protein,Urine 1+ (Negative); RBC,Urine 2 /hpf (0-5); Specific Gravity,Urine 1.013 (1.001-1.035); Squamous Epithelial Cell,Urine 1 /hpf (0-4); Urobilinogen,Urine <2.0 mg/dL (<2.0); WBC,Urine 13 /hpf (0-5)
[2022-10-31] MEDS: ACYCLOVIR SODIUM 800 MG in SODIUM CHLORIDE 0.9% 250 ML IVPB SCH ×2 (08:00→15:50)
[2022-10-31 08:03] LABS: Glucose,Whole Blood 89 mg/dL (70-110)
[2022-10-31] MEDS: HEPARIN SODIUM,PORCINE/PF 5,000 UNIT/0.5 ML SYRINGE SQ SCH ×2 (08:10→20:19)
[2022-10-31] MEDS: MONTELUKAST 10 MG TAB PO SCH (08:10)
[2022-10-31] MEDS: BACLOFEN 10 MG TAB PO SCH ×3 (08:10→20:18)
[2022-10-31] MEDS: THIAMINE 100 MG/ML 2 ML VIAL IVP SCH (09:35)
--- NOTE | 2022-10-31 10:20 | P.PCN ---
Date of Procedure: 10/31/22 Procedure(s) Performed: Preoperative diagnosis: Altered mental status Post operative diagnoses= altered mental status Procedure= lumbar puncture Anesthesia= local infiltration with lidocaine 1% 3 mL. Condition: stable Complication: none. Description of the procedure procedure risk and benefits discussed with the patient,s family, consent signed. Patient and the procedure area placed in lateral position ( right side down ), back prepped with chlorhexidine 3 times been local infiltration of the skin and subcutaneous tissue with lidocaine 1% 3 mL for skin and subcu interstitial frustrations at L4 5 levels then 22-gauge Quincke-type needle advanced slowly at L4- 5 interlaminar space there was positive cerebrospinal fluid which was clear, no heme, no paresthesia ,total of 9 ML of clear cerebrospinal fluid collected in 4 different tubes 2-2-1/2 mL in each, then the needle removed and a Band-Aid applied and patient tolerated the procedure well without any complications.
--- NOTE | 2022-10-31 13:11 | P.PN ---
Subjective Progress Note Date: 10/31/22 Principal diagnosis: Fever Patient is a 37-year-old female with past medical history significant for mild asthma patient was brought into the ER at [facility] for evaluation of hallucination and altered mentation , the patient was initially afebrile subsequently she states spike a fever and the patient did have a lumbar puncture completed this morning On today's evaluation that is 10/31/2022, patient did have a low-grade fever of 99.8F the patient is slightly more awake and alert denies any headache no chest pain shortness of breath or cough no vomiting or diarrhea has been reported Objective - Vital Signs Vital signs: Vital Signs Temp 99.5 F 10/31/22 07:58 Pulse 63 10/31/22 08:00 Resp 18 10/31/22 08:00 BP 117/73 10/31/22 07:58 Pulse Ox 94 L 10/31/22 07:58 FiO2 Intake & Output 10/30/22 10/31/22 10/31/22 18:59 06:59 18:59 Output Total 300 Balance -300 Output: Urine 300 Other: Voiding Method Diaper Diaper Diaper - Exam GENERAL DESCRIPTION: Middle-age female lying in bed in no distress RESPIRATORY SYSTEM: Unlabored breathing , decreased breath sounds at bases HEART: S1 S2 regular rate and rhythm , ABDOMEN: Soft , no tenderness EXTREMITIES: No edema feet - Labs CBC & Chem 7: 10/30/22 11:27 10/31/22 08:34 Labs: Abnormal Lab Results - Last 24 Hours (Table) 10/30/22 10/30/22 10/30/22 Range/Units 11:27 11:27 11:40 WBC 15.6 H (3.8-10.6) k/uL Neutrophils # 14.0 H (1.3-7.7) k/uL Lymphocytes # 0.8 L (1.0-4.8) k/uL Creatinine (0.52-1.04) mg/dL Glucose 62 L (74-99) mg/dL POC Glucose (mg/dL) 60 L (70-110) mg/dL Creatine Kinase 355 H (30-135) U/L C-Reactive Protein (<1.0) mg/dL Urine Appearance (Clear) Urine Protein (Negative) Urine Ketones (Negative) Ur Leukocyte Esterase (Negative) Urine WBC (0-5) /hpf Urine Bacteria (None) /hpf Urine Mucus (None) /hpf 10/30/22 10/30/22 10/30/22 Range/Units 12:01 16:29 16:55 WBC (3.8-10.6) k/uL Neutrophils # (1.3-7.7) k/uL Lymphocytes # (1.0-4.8) k/uL Creatinine (0.52-1.04) mg/dL Glucose (74-99) mg/dL POC Glucose (mg/dL) 63 L 112 H (70-110) mg/dL Creatine Kinase (30-135) U/L C-Reactive Protein 3.1 H (<1.0) mg/dL Urine Appearance (Clear) Urine Protein (Negative) Urine Ketones (Negative) Ur Leukocyte Esterase (Negative) Urine WBC (0-5) /hpf Urine Bacteria (None) /hpf Urine Mucus (None) /hpf 10/31/22 10/31/22 Range/Units 06:00 08:34 WBC (3.8-10.6) k/uL Neutrophils # (1.3-7.7) k/uL Lymphocytes # (1.0-4.8) k/uL Creatinine 1.51 H (0.52-1.04) mg/dL Glucose (74-99) mg/dL POC Glucose (mg/dL) (70-110) mg/dL Creatine Kinase (30-135) U/L C-Reactive Protein (<1.0) mg/dL Urine Appearance Cloudy H (Clear) Urine Protein 1+ H (Negative) Urine Ketones 1+ H (Negative) Ur Leukocyte Esterase Small H (Negative) Urine WBC 13 H (0-5) /hpf Urine Bacteria Occasional H (None) /hpf Urine Mucus Many H (None) /hpf Microbiology - Last 24 Hours (Table) 10/30/22 21:00 Wound Culture - Preliminary Other - Other 10/30/22 21:00 Fungal Culture - Preliminary Other - Other 10/30/22 21:00 Anaerobic Culture - Preliminary Other - Other Assessment and Plan (1) Fever Current Visit: Yes Status: Acute Code(s): R50.9 - FEVER, UNSPECIFIED SNOMED Code(s): 322360421 Plan: 1patient with SIRS in this patient who did have a fever elevated white count 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
[2022-10-31] MEDS: ACETAMINOPHEN TAB 325 MG TAB PO PRN (13:28)
--- NOTE | 2022-10-31 13:52 | P.PN ---
Progress Note - Text Progress Note Date: 10/31/22 Interval History: Patient was seen today for psychiatric follow-up today. The patient's nurse s tates that patient has been receiving scheduled Haldol and her last dose of Haldol has been held due to sedation. Patient was seen in the room today and continues have a one-to-one sitter. She was lying on the bed and was awoken briefly when senior copywriter entered the room and began speaking with her. Patient did appear to be more appropriate and had improvement in her speech and also her thought process. She answered most questions today appropriately. She had her eyes closed during majority of the interview. She did appear to be fairly lethargic. She did not know certain biographical data including that she has a child and also that she is currently . She also knew that she was in the hospital however does not know which one or where she is, she knows her full name, does not know her age she believes that she is "27 years old". She knew her correct date of . She is not noted to date. She is denying any depression or any anxiety at this time. Was fairly concrete however appropriate. She requested several times in water and also several items of fruit. She is not endorsing paranoia or any delusions at this time. At this time patient denies any suicidal or homical ideations, intent or plan. Patient denies any auditory, visual hallucinations. Patient has been taking some medications. Mental Status Exam: General Appearance: Patient appears to have several bruises over her arms and legs, stated age is alert, mildly confused, lethargic, showing improvement overall. Patient appears to have fair hygiene and grooming. Behavior: Patient is laying in bed, less bizarre and more directable Speech: Patient's speech is not rambling, more clear Mood/Affect: "Ok and tired" and has a constricted affect Suicidality/Homicidality: Denies Perceptions: Denies Though content/process: not Rambling, more organized speech and thoughts, mild improvement. no delusions Memory and concentration: Concentration is improving. follows more complex tasks/commands today. oriented to person, knows she is in a hospital and does not know the date Judgment and insight: improving IMPRESSIONS: Delirium likely secondary to psychoactive substances?? (kratom and phenibut) r/o infectious causes and more rare psychiatric causes hx of depression and anxiety PLAN: -At this time psychiatry will continue to follow along with treatment of patients delirium and finding the underlying cause. patient is overall improving significantly -Delirium precautions recommended with patient including - avoiding use of narcotics and SECURITY OPERATIONS ANALYST sedatives, limit anticholinergic medications when possible, frequent re-orientation, minimize use of restraints, open window shades during the day and close them at night -Would recommend the following medication changes/additions: continue prolixin and cogentin IM PRN mainly for agitation/psychosis. will try and titrate off of baclofen by tomorrow for tx of withdrawal delirium from phenibut. decreased scheduled IM haldol to 5 mg q8hr for psychosis. - awiting anti NMDA receptor IGg. syphillis - neg, tsh, and vitamin b12 look OK. appreicate neurology recs. currently awiting mri and lumbar puncture results. EEG apparently suggestive of mild encephalopathy and rpt EEG showed diffuse mild cerebral dysfunction. -senior copywriter spoke with Dr Mckenzie about the case and updated him on the plan. appreciate neuro recs -Continue 1:1 sitter for safety -Communicated plan to patient's nurse -Will continue to follow along -Please contact with any questions.
--- NOTE | 2022-10-31 14:54 | P.PN ---
Subjective Progress Note Date: 10/31/22 10/31/2022: The patient was seen for a follow-up. Patient's was also present today. Also discussed with primary physician. Patient has remarkably improved. Her believes that she is about 65% back to baseline. Her speech is still slower. Patient denies any headache, any nausea or vomiting. She does feel slightly lightheaded and nauseous and stated when she woke up in t he morning but not anymore. Patient is laying comfortably in the bed at this time. 10/30/2022: Patient initially seen by Dr. Hector Maher. Please refer to his note for details. Patient is a 37-year-old female, admitted with acute psychosis. Psychiatry and board. Patient needs spinal fluid and MRI, but patient has been not cooperative. Lumbar puncture was attempted twice but patient was restless and did not cooperate. Patient had undergone prolonged EEG testing today. Patient was seen for a follow-up. Patient states "I don't feel good" however for headache, she denies any headache. On asking repeated questions, patient states "leave me alone". On asking more questions, patient stated "stop". Patient became slightly irritable, started using foul language. The sitter was present throughout this encounter. Patient has a tattoo on the right dorsum of the foot. On asking what it is, patient states it's the "sign of harmony". I spoke to patient's mother, who mentions that patient has history of anxiety when she was around 20. She then has some depression after her second 6 years ago. The first at age 20 and was put on adoption. Patient does have contact with her adopted child. Patient does have history of some abuse of Kratom and phenibut, but nothing else that patient's mother knows about. Some history of alcohol, but not to the point of abuse. SOME OF THE WORK-UP DURING THIS HOSPITAL VISIT CONSISTED OF: So far the patient has been afebrile. Blood cells 5.7 thousand which is within normal limits Ammonia level is less than 9. Calcium, sodium, creatinine, TSH is within normal limits. Folate is 26.6 Vitamin B12 is 1221 CT of the head is reported as no acute intracranial processes. Follow-up MRI can be performed as clinically indicated. Air fluid level within the right maxillary sinus. Correlate for acute sinusitis. Urine drug screen initially when she presented to ED was positive for propoxyphene, amphetamine and benzo. Treponema pallidum antibody was nonreactive. BHARTI is negative Meaw-qjshcs-kvzpwsfl DNA antibodies negative Pelvic ultrasound is reported as no evidence for acute process. No teratoma visualized by this not refer within the images. CT abdomen and pelvis is reported as significant motion artifact limiting evaluation. No abdomen mass visualized on this noncontrast limited exam. No evidence for acute processes visualized on this noncontrast limited exam Objective - Vital Signs Vital signs: Vital Signs Temp 99.8 F H 10/31/22 12:00 Pulse 60 10/31/22 12:00 Resp 16 10/31/22 12:00 BP 119/69 10/31/22 12:00 Pulse Ox 94 L 10/31/22 12:00 FiO2 Intake & Output 10/30/22 10/31/22 10/31/22 18:59 06:59 18:59 Output Total 300 Balance -300 Output: Urine 300 Other: Voiding Method Diaper Diaper Diaper - Exam Patient is a young female, who is sitting/reclining in the bed, appears comfortable. Patient is not in any distress. Patient appears very mildly encephalopathic at this time. Much better than yesterday. Patient is alert and awake, knows it is 3 S. in [facility]. Patient states it is 11/01/2022. Her speech and language functions are normal. Speech is slightly hoarse. On cranial nerve examination, pupils are equal, round and reacting to light. Visual petersen are full on confrontation with no neglect. Her left eye has some injected conjunctiva in the upper nasal side of the eye, better than yesterday. Her face is symmetric. Tongue protrudes the midline. No evidence of oral trauma. Hearing appears normal. Facial sensations normal. Palatal elevation and sensation normal. On muscle strength testing, there is no pronator drift. 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 Her strength in the lower extremities is normal. Deep tendon reflexes are symmetric 1+ to 2+ in the arms and legs and plantars are downgoing. Sensory to touch is equal with no neglect on double simultaneous stimulation. Cerebellar function showed no ataxia for [id number] testing. Tone and bulk of muscles normal. No obvious twitching, tremors. Gait deferred.. On general examination, there is no carotid bruit or murmur, S1-S2 audible. Chest is clear on consultation. Abdomen is soft nontender. No organomegaly, bowel sounds present. Peripheral pulses are present. No edema. Patient has multiple bruises over her dorsum of the hand, and in the lower legs. Patient's neck is supple. - Labs CBC & Chem 7: 10/30/22 11:27 10/31/22 08:34 Labs: Abnormal Lab Results - Last 24 Hours (Table) 10/30/22 10/30/22 10/31/22 Range/Units 16:29 16:55 06:00 Creatinine (0.52-1.04) mg/dL POC Glucose (mg/dL) 112 H (70-110) mg/dL C-Reactive Protein 3.1 H (<1.0) mg/dL Urine Appearance Cloudy H (Clear) Urine Protein 1+ H (Negative) Urine Ketones 1+ H (Negative) Ur Leukocyte Esterase Small H (Negative) Urine WBC 13 H (0-5) /hpf Urine Bacteria Occasional H (None) /hpf Urine Mucus Many H (None) /hpf 10/31/22 Range/Units 08:34 Creatinine 1.51 H (0.52-1.04) mg/dL POC Glucose (mg/dL) (70-110) mg/dL C-Reactive Protein (<1.0) mg/dL Urine Appearance (Clear) Urine Protein (Negative) Urine Ketones (Negative) Ur Leukocyte Esterase (Negative) Urine WBC (0-5) /hpf Urine Bacteria (None) /hpf Urine Mucus (None) /hpf Microbiology - Last 24 Hours (Table) 10/31/22 06:00 Urine Culture - Preliminary Urine,Voided 10/30/22 21:00 Wound Culture - Preliminary Other - Other 10/30/22 21:00 Fungal Culture - Preliminary Other - Other 10/30/22 21:00 Anaerobic Culture - Preliminary Other - Other Assessment and Plan Assessment: Delirium likely due subsutance abuse (Kratom and phenibut). Rule out any central causes such as autoimmune disease explaining her symptoms: So far EEG is negative for seizure or discharges, negative BHARTI, syphilis testing, normal Vitamin B12, folate, TSH and ammonia level. Had one low grade fever on 10/28/22 of 100.3 after 4 days in this admission but otherwise afebrile and no leukocytosis. History of depression and anxiety Possible substance abuse. Plan: Routine EEG: Is abnormal. The background slowing is suggestive of mild encephalopathy. Otherwise, no seizure or discharges. Prolonged EEG 10/30/2022 revealed essentially sleep EEG. No clinical or el ectrographic seizures were recorded. No epileptiform activity was present. During the 1 very short period of increased alertness, with movement, background frequencies were seen in the 7-8 Hz range with superimposed faster, beta frequencies. Some diffuse theta range slowing was seen more anteriorly. These findings suggest mild diffuse cerebral dysfunction. Clinical correlation is recommended. Pending MRI of the brain to rule out any central cause such as a mass or other causes of central cause. CT brain was negative. Patient cannot lay still for MRI. Pending anti NMDA. Lumbar puncture performed today, results pending. Dr. Maher has spoken with psychiatrist and she is in agreement. Pending Herpes 1/2, HIV. Ordered HIV 1/2 PCR. Ck level is mildly elevated 642 and repeat CK 355, improved. On thiamine 100 mg IV daily. We'll defer the rest of the management to the psychiatry team Discussed with patient's in detail.
[2022-10-31 14:55] LABS: Glucose,Whole Blood 193 mg/dL (70-110)
[2022-10-31 15:16] LABS: Glucose,CSF 56 mg/dL (40-70)
[2022-10-31 16:55] LABS: HIV 2 AB Non-Reactive (Non-Reactive); HIV AB P24 Non-Reactive (Non-Reactive); HIV P24 AG Non-Reactive (Non-Reactive)
[2022-10-31 17:07] LABS: Appearance,CSF Clear; CSF Tube Number 4; CSF Tube Volume 3.2; Nucleated Cells, CSF 0 u/L (0-5); Red Blood Cell,CSF 360 u/L (0-10)
[2022-10-31 17:08] LABS: Red Blood Cell, CSF Fresh 100 %
[2022-10-31 17:18] LABS: HSV I IgG Interp NEGATIVE (NEGATIVE); HSV II IgG Interp NEGATIVE (NEGATIVE)
[2022-10-31 19:17] LABS: CSF Tube Number 1
--- NOTE | 2022-10-31 21:56 | P.PN ---
Subjective From previous records Patient is a 37-year-old female without significant past medical history was admitted to the hospital due to aggressive behavior and delirium/psychosis on 10/19/2022. Patient was initially admitted to mental health unit and is being treated. Yesterday evening patient became delirious and hallucinating with altered sensorium. Patient received Zyprexa dose for agitation about 30 minutes prior to this episode. rapid response team was called and patient was eventually transferred to medical floor for further management. Apparently patient has not been sleeping well and does not stressful situation and ongoing foreclosure of her home. No prior history of psychiatric admission. Patient is currently not on any medications at home. She is using kratom and Phenibut at home due to her anxiety. Does vape. Denies any IV injections illicit drug use. CT head showed no acute intracranial process. Air-fluid levels within the right maxillary sinus. Correlate for acute sinusitis. Laboratory data showed WBC 5.4, hemoglobin 10.7 platelets 329 sodium 138 potassium 3.3 chloride 97 bicarb is 31 BUN 21 and creatinine 0.75 and blood sugar 101 liver enzymes are not elevated. UDS on admission positive for propoxyphene on, amphetamines and benzodiazepines. Urinalysis today showed cloudy with trace ketones and nitrite positive and WBCs 8. 10/26/2022 Patient is currently lying in the bed. Still agitated and paradorsal mental status is waxing and waning. Otherwise patient has been afebrile. Continued on as needed Prolixin IM every 6 hourly for agitation. Could not provide any history at this time. Laboratory showed WBC 5.4 hemoglobin 10.8 and platelets 315, sodium 141 potassium 4.0 chloride 102 bicarb is 29 BUN 11 and creatinine 0.6. Neurology recommends EEG which showed background slowing suggestive of mild enc ephalopathy. No seizure discharges. MRI of the brain to rule out central causes. CT head negative. Patient was started on thiamine IV daily. 10/27/2022 Patient is currently lying in the bed. Mentation remains the same. Hallucinating and talking to herself. Awake alert oriented x0. Does not follow commands. Patient was able to void spontaneously. Febrile. Continued on ceftriaxone for possible urinary tract infection. Patient is not cooperative for the meeting including MRI. Psychiatry and neurology is on board. Bedside sitter is in place. 10/28/2022. Patient's mentation remains the same. Does not follow commands. Patient does have soft restraints. Bedside sitter is in place. Patient was having diffuse muscle twitches and spasms and abnormal eye movements. Discussed with psychiatry team. Patient has been having with severe withdrawal symptoms for the past 10 days. Possible underlying paraneoplastic/autoimmune pathology is also being considered. Patient was given a dose of Valium IV x110 mg. Was able to get CT of abdomen pelvis without contrast however most from artifact aspect of the quality. MRI with contrast is recommended if there is further concern for ovarian t eratoma leading to anti-NMDA receptor encephalitis. 10/29/2022 Patient is more agitated and currently under four-point restraints. Mentation remains the same. Today patient received 2 mg of Ativan prior to lumbar puncture and had to abort the procedure since the patient is restless and agitated. Will discuss with ICU team since patient may require intubation and sedation to to proceed with lumbar puncture. Repeat EEG was ordered as per neurology. Urine culture showed normal rose. Ceftriaxone will be discontinued. Completed 5 days of antibiotics. Laboratory data showed WBC 12.2 hemoglobin 12.0 and platelets 400 sodium 141 potassium 3.9 chloride 106 bicarb is 23 BUN 10 and creatinine 0.65 and CRP less than 5 CPK level 642 I'm resuming the care of the patient today on 10/2922 This is a 37 years old female who was initially admitted to the site units for possible psychosis and delirium however she became more altered mental status and ID team was called and patient was transferred to the general medical floor. Patient is suspected to have metabolic/toxic encephalopathy secondary to substance abuse and withdrawal as patient was using Kratom and phenibut. Patient Patient was closely by psychiatry and neurology service was treated with benzodiazepines, as well as baclofen, Cogentin and Prolixin. Patient remained confused and she was agitated, she has to be placed on the restrained. This morning I discussed the case with the bedside nurse who told me this is the first time she is calm down significantly, patient today during my evaluation she was lying in bed, sleeping, confused, calm, looks relaxed. No abnormal movements. No restraints. She has mild bruises on her legs. Looks healing. No other information was obtained from the patient. She is hemodynamically stable, however she had fever 100 and 1. 2 yesterday and 100.3 one day earlier. Also patient has worsening leukocytosis from 5.5 up to 12 K up to 15.6 k today. Lumbar puncture could not be obtained because of her agitated status also MRI of the brain is pending, today is not available because its holiday In this facility. Her sugar was slightly low and improved with oral juice, therefore we switched her normal saline up to D5 normal saline at 75 mL/h I am going to increase the rate to 100 mL per hour. Also will increase her Accu-Chek every 4 hours and give D50 when necessary for glucose less than 80 mg per dcL Because of her fever and leukocytosis we consulted infectious disease team was going to order it may take was suspected to have UTI and she was placed on ceftriaxone. But it was stopped yesterdat because urine culture came back negative. We ordered a chest x-ray which was unremarkable. Sitter at bedside 10/31/2022 Patient today showing significant improvement, in the morning she was still tended however this evening she has dramatic improvement, she is awake and alert and interactive, she is oriented and she is complaining from feeling tired. No other specific symptoms. Patient is hemodynamically stable. Fever started improving (99.8 today ) and patient mentation improved after she was started on antibiotic Creatinine went up to 1.5, bladder scan showing residual urine more than 300, discussed with staff to place Ramires catheter Check renal ultrasound ordered and pending, also will consult powder shoveler Patient had lumbar puncture done today and result is pending. Also MRI of the brain and anti-NMDA test is pending She remains on IV vancomycin and ceftriaxone per ID team. A second liver was stopped. Also there is some report of vaginal discharge, we sent this for chlamydia, gonorrhea fungal infection and genital culture which are pending as well. Sitter remains at bedside Active Medications Generic Name Dose Route Start Last Admin Trade Name Freq PRN Reason Stop Dose Admin Acetaminophen 650 mg 10/24/22 20:33 10/31/22 13:28 Acetaminophen Tab 325 Mg Tab PO 650 mg Q6HR PRN Administration Fever and/ or Mild Pain Albuterol Sulfate 2.5 mg 10/25/22 09:26 Albuterol Nebulized 2.5 Mg/3 Ml INHALATION RT-Q6H PRN Shortness Of Breath Baclofen 5 mg 10/31/22 16:00 10/31/22 20:18 Baclofen 10 Mg Tab PO 11/01/22 16:01 5 mg TID PAM Administration Benztropine Mesylate 0.5 mg 10/25/22 13:26 10/28/22 08:57 Benztropine 2 Mg/2 Ml Amp IM 0.5 mg Q8HR PRN Administration eps prophylaxis Dextrose/Water 50 ml 10/30/22 18:19 Dextrose 50% Syringe 50 Ml IVP ONCE PRN Hypoglycemia Diazepam 10 mg 10/30/22 02:37 Diazepam 5 Mg/Ml 2 Ml Inj IVP Q8HR PRN Muscle Spasm Fluphenazine HCl 5 mg 10/26/22 14:24 10/28/22 08:56 Fluphenazine 2.5 Mg/Ml (Mdv) 10 Ml Vial IM 5 mg Q6HR PRN Administration Agitation Haloperidol Lactate 5 mg 10/31/22 16:00 10/31/22 15:50 Haloperidol Lactate 5 Mg/Ml 1 Ml Vial IM 5 mg Q8HR PAM Administration Heparin Sodium (Porcine) 5,000 unit 10/24/22 21:00 10/31/22 20:19 Heparin Sodium,Porcine/Pf 5,000 Unit/0.5 Ml Syringe SQ 5,000 unit Q12HR PAM Administration Ceftriaxone Sodium 2 gm/ 50 mls @ 100 mls/hr 10/30/22 21:00 10/31/22 20:21 Sodium Chloride IVPB 100 mls/hr Q12HR PAM Administration Protocol Sodium Chloride 1,000 mls @ 100 mls/hr 10/31/22 21:45 Saline 0.9% IV .Q10H PAM Miscellaneous Information 1 each 10/25/22 09:32 Potassium Replacement Protocol 1 Each Misc MISCELLANE DAILY PRN Per Protocol Protocol Montelukast Sodium 10 mg 10/25/22 09:30 10/31/22 08:10 Montelukast 10 Mg Tab PO Not Given DAILY PAM Tamsulosin HCl 0.4 mg 10/31/22 22:00 Tamsulosin 0.4 Mg Cap.Er.24h PO PC-SUPPER PAM Thiamine HCl 100 mg 10/25/22 15:15 10/31/22 09:35 Thiamine 100 Mg/Ml 2 Ml Vial IVP 100 mg DAILY PAM Administration Objective - Vital Signs Vital signs: Vital Signs Temp 98.8 F 10/31/22 20:00 Pulse 82 10/31/22 20:00 Resp 16 10/31/22 20:00 BP 116/69 10/31/22 20:00 Pulse Ox 96 10/31/22 20:00 FiO2 Intake & Output 10/31/22 10/31/22 11/01/22 06:59 18:59 06:59 Intake Total 540 Output Total 300 450 Balance -300 90 Intake: Oral 540 Output: Urine 300 450 Other: Voiding Method Diaper Diaper # Bowel Movements 1 - Exam -GENERAL: The patient is awake alert, oriented and more interactive, not in any acute distress. Well developed, well nourished. HEENT: Pupils are round and equally reacting to light. EOMI. No scleral icterus. No conjunctival pallor. Normocephalic, atraumatic. No pharyngeal erythema. No thyromegaly. CARDIOVASCULAR: S1 and S2 present. No murmurs, rubs, or gallops. PULMONARY: Chest is clear to auscultation, no wheezing . no crackles. ABDOMEN: Soft, nontender, nondistended, normoactive bowel sounds. No palpable organomegaly. MUSCULOSKELETAL: No joint swelling or deformity. EXTREMITIES: No cyanosis, clubbing, or pedal edema. NEUROLOGICAL: Gross neurological examination did not reveal any focal deficits. SKIN: No rashes. no petechiae. - Labs CBC & Chem 7: 10/30/22 11:27 10/31/22 08:34 Labs: Abnormal Lab Results - Last 24 Hours (Table) 10/31/22 10/31/22 10/31/22 Range/Units 06:00 08:34 10:07 Creatinine 1.51 H (0.52-1.04) mg/dL POC Glucose (mg/dL) (70-110) mg/dL Urine Appearance Cloudy H (Clear) Urine Protein 1+ H (Negative) Urine Ketones 1+ H (Negative) Ur Leukocyte Esterase Small H (Negative) Urine WBC 13 H (0-5) /hpf Urine Bacteria Occasional H (None) /hpf Urine Mucus Many H (None) /hpf CSF RBC 360 H (0-10) u/L 10/31/22 Range/Units 14:54 Creatinine (0.52-1.04) mg/dL POC Glucose (mg/dL) 193 H (70-110) mg/dL Urine Appearance (Clear) Urine Protein (Negative) Urine Ketones (Negative) Ur Leukocyte Esterase (Negative) Urine WBC (0-5) /hpf Urine Bacteria (None) /hpf Urine Mucus (None) /hpf CSF RBC (0-10) u/L Microbiology - Last 24 Hours (Table) 10/31/22 10:07 CSF Gram Stain - Preliminary Cerebral Spinal Fluid CSF Culture - Preliminary 10/31/22 06:00 Urine Culture - Preliminary Urine,Voided 10/30/22 21:00 Wound Culture - Preliminary Other - Other 10/30/22 21:00 Fungal Culture - Preliminary Other - Other 10/30/22 21:00 Anaerobic Culture - Preliminary Other - Other Assessment and Plan Assessment: -Acute delirium/hallucinations likely due to withdrawal from psychiatry lin bstance use.(Kratom and Phenibut), Possible paraneoplastic/autoimmune etiologies is also being considered. Rule out intracranial infection -Metabolic/toxic encephalopathy secondary to above. Improved -Hypoglycemia secondary to above. Improved (patient currently able to eat and drink) -Acute kidney injury with acute urinary retention -History of anxiety/depression -Possible urinary tract infection -Acute maxillary sinusitis as per CT head -History of sinus surgery -Acute urinary retention. resolved Plan: Change her fluids to normal salineat 100 mL per hour (stopped D5 as her sugars up). Accu-Cheks every before meals at bedtime Infectious disease consult. We will defer antibiotic management ID team, follow-up CSF results. Follow-up culture result Neurology and psychiatry team on the case Further workup by neurologist is pending including NMDA test , MRI of the brain is pending Place Ramires catheter, for urinary retention and acute kidney injury, check renal ultrasound and consult powder shoveler. Start Flomax Labs and medication were reviewed.. Continue same treatment. Continue with symptomatic treatment. Resume home medication. Monitor labs and vitals. DVT and GI prophylaxis. Further recommendations as per clinical course of the patient DVT prophylaxis: Subcutaneous heparin GI Prophylaxis: Pepcid PT/OT: Deferred osis is guarded
[2022-10-31] MEDS: SODIUM CHLORIDE 0.9% 1,000 ML IV SCH (22:00)
[2022-10-31] MEDS: TAMSULOSIN 0.4 MG CAP.ER.24H PO SCH (23:18)
[2022-11-01] MEDS: DEXTROSE 5%-0.9% NACL 1,000 ML IV SCH (00:10)
[2022-11-01 06:02] LABS: Glucose,Whole Blood 93 mg/dL (70-110)
--- NOTE | 2022-11-01 08:13 | US ---
EXAMINATION TYPE: US renals and bladder DATE OF EXAM: 11/01/2022 COMPARISON: CT dated 10/28/2022 CLINICAL INDICATION: Female, 37 years old with history of george; EXAM MEASUREMENTS: Right Kidney: 12.4 x 4.9 x 5.4 cm Left Kidney: 11.5 x 6.3 x 5.7 cm Right Kidney: No hydronephrosis or masses seen Left Kidney: No hydronephrosis or masses seen Bladder: not seen, patient has catheter Bilateral Jets seen: not seen, patient has catheter There is no evidence for hydronephrosis at this point in time. No nephrolithiasis is seen. No kenn s are identified. Bladder decompressed by Ramires catheter. IMPRESSION: No hydronephrosis seen bilaterally.
[2022-11-01] MEDS ORDERED: VANCOMYCIN TROUGH DUE 1 EACH MISC MISCELLANE ONE (09:00)
[2022-11-01 09:22] LABS: Basophils % (A) 0 %; Eosinophils # (A) 0.1 k/uL (0-0.7); Eosinophils % (A) 1 %; HCT 33.6 % (34.0-46.0); HGB 11.1 gm/dL (11.4-16.0); Lymphocytes # (A) 0.7 k/uL (1.0-4.8); Lymphocytes % (A) 7 %; MCH 27.3 pg (25.0-35.0); MCHC 33.1 g/dL (31.0-37.0); MCV 82.4 fL (80.0-100.0); Mean Platelet Volume 7.2; Monocytes # (A) 0.6 k/uL (0-1.0); Monocytes % (A) 5 %; Neutrophils # (A) 9.5 k/uL (1.3-7.7); Neutrophils % (A) 85 %; Platelet Count 292 k/uL (150-450); RBC 4.08 m/uL (3.80-5.40); RDW 15.3 % (11.5-15.5); WBC 11.2 k/uL (3.8-10.6)
[2022-11-01] MEDS ORDERED: VANCOMYCIN 1,500 MG in SODIUM CHLORIDE 0.9% 500 ML 500 ML IVPB SCH (10:00)
[2022-11-01 11:43] LABS: Glucose,Whole Blood 100 mg/dL (70-110)
[2022-11-01 11:56] LABS: Calcium 8.5 mg/dL (8.4-10.2); Potassium 3.7 mmol/L (3.5-5.1)
[2022-11-01] MEDS: HALOPERIDOL LACTATE 5 MG/ML 1 ML VIAL IM SCH (12:06)
[2022-11-01] MEDS: HEPARIN SODIUM,PORCINE/PF 5,000 UNIT/0.5 ML SYRINGE SQ SCH ×2 (12:40→20:17)
[2022-11-01] MEDS: SODIUM CHLORIDE 0.9% 1,000 ML IV SCH ×2 (12:41→22:00)
--- NOTE | 2022-11-01 12:47 | P.PN ---
Subjective From previous records Patient is a 37-year-old female without significant past medical history was admitted to the hospital due to aggressive behavior and delirium/psychosis on 10/19/2022. Patient was initially admitted to mental health unit and is being treated. Yesterday evening patient became delirious and hallucinating with altered sensorium. Patient received Zyprexa dose for agitation about 30 minutes prior to this episode. rapid response team was called and patient was eventually transferred to medical floor for further management. Apparently patient has not been sleeping well and does not stressful situation and ongoing foreclosure of her home. No prior history of psychiatric admission. Patient is currently not on any medications at home. She is using kratom and Phenibut at home due to her anxiety. Does vape. Denies any IV injections illicit drug use. CT head showed no acute intracranial process. Air-fluid levels within the right maxillary sinus. Correlate for acute sinusitis. Laboratory data showed WBC 5.4, hemoglobin 10.7 platelets 329 sodium 138 potassium 3.3 chloride 97 bicarb is 31 BUN 21 and creatinine 0.75 and blood sugar 101 liver enzymes are not elevated. UDS on admission positive for propoxyphene on, amphetamines and benzodiazepines. Urinalysis today showed cloudy with trace ketones and nitrite positive and WBCs 8. 10/26/2022 Patient is currently lying in the bed. Still agitated and paradorsal mental status is waxing and waning. Otherwise patient has been afebrile. Continued on as needed Prolixin IM every 6 hourly for agitation. Could not provide any history at this time. Laboratory showed WBC 5.4 hemoglobin 10.8 and platelets 315, sodium 141 potassium 4.0 chloride 102 bicarb is 29 BUN 11 and creatinine 0.6. Neurology recommends EEG which showed background slowing suggestive of mild enc ephalopathy. No seizure discharges. MRI of the brain to rule out central causes. CT head negative. Patient was started on thiamine IV daily. 10/27/2022 Patient is currently lying in the bed. Mentation remains the same. Hallucinating and talking to herself. Awake alert oriented x0. Does not follow commands. Patient was able to void spontaneously. Febrile. Continued on ceftriaxone for possible urinary tract infection. Patient is not cooperative for the meeting including MRI. Psychiatry and neurology is on board. Bedside sitter is in place. 10/28/2022. Patient's mentation remains the same. Does not follow commands. Patient does have soft restraints. Bedside sitter is in place. Patient was having diffuse muscle twitches and spasms and abnormal eye movements. Discussed with psychiatry team. Patient has been having with severe withdrawal symptoms for the past 10 days. Possible underlying paraneoplastic/autoimmune pathology is also being considered. Patient was given a dose of Valium IV x110 mg. Was able to get CT of abdomen pelvis without contrast however most from artifact aspect of the quality. MRI with contrast is recommended if there is further concern for ovarian t eratoma leading to anti-NMDA receptor encephalitis. 10/29/2022 Patient is more agitated and currently under four-point restraints. Mentation remains the same. Today patient received 2 mg of Ativan prior to lumbar puncture and had to abort the procedure since the patient is restless and agitated. Will discuss with ICU team since patient may require intubation and sedation to to proceed with lumbar puncture. Repeat EEG was ordered as per neurology. Urine culture showed normal rose. Ceftriaxone will be discontinued. Completed 5 days of antibiotics. Laboratory data showed WBC 12.2 hemoglobin 12.0 and platelets 400 sodium 141 potassium 3.9 chloride 106 bicarb is 23 BUN 10 and creatinine 0.65 and CRP less than 5 CPK level 642 I'm resuming the care of the patient today on 10/2922 This is a 37 years old female who was initially admitted to the site units for possible psychosis and delirium however she became more altered mental status and ID team was called and patient was transferred to the general medical floor. Patient is suspected to have metabolic/toxic encephalopathy secondary to substance abuse and withdrawal as patient was using Kratom and phenibut. Patient Patient was closely by psychiatry and neurology service was treated with benzodiazepines, as well as baclofen, Cogentin and Prolixin. Patient remained confused and she was agitated, she has to be placed on the restrained. This morning I discussed the case with the bedside nurse who told me this is the first time she is calm down significantly, patient today during my evaluation she was lying in bed, sleeping, confused, calm, looks relaxed. No abnormal movements. No restraints. She has mild bruises on her legs. Looks healing. No other information was obtained from the patient. She is hemodynamically stable, however she had fever 100 and 1. 2 yesterday and 100.3 one day earlier. Also patient has worsening leukocytosis from 5.5 up to 12 K up to 15.6 k today. Lumbar puncture could not be obtained because of her agitated status also MRI of the brain is pending, today is not available because its holiday In this facility. Her sugar was slightly low and improved with oral juice, therefore we switched her normal saline up to D5 normal saline at 75 mL/h I am going to increase the rate to 100 mL per hour. Also will increase her Accu-Chek every 4 hours and give D50 when necessary for glucose less than 80 mg per dcL Because of her fever and leukocytosis we consulted infectious disease team was going to order it may take was suspected to have UTI and she was placed on ceftriaxone. But it was stopped yesterdat because urine culture came back negative. We ordered a chest x-ray which was unremarkable. Sitter at bedside 10/31/2022 Patient today showing significant improvement, in the morning she was still tended however this evening she has dramatic improvement, she is awake and alert and interactive, she is oriented and she is complaining from feeling tired. No other specific symptoms. Patient is hemodynamically stable. Fever started improving (99.8 today ) and patient mentation improved after she was started on antibiotic Creatinine went up to 1.5, bladder scan showing residual urine more than 300, discussed with staff to place Ramires catheter Check renal ultrasound ordered and pending, also will consult materials planning manager Patient had lumbar puncture done today and result is pending. Also MRI of the brain and anti-NMDA test is pending She remains on IV vancomycin and ceftriaxone per ID team. A second liver was stopped. Also there is some report of vaginal discharge, we sent this for chlamydia, gonorrhea fungal infection and genital culture which are pending as well. Sitter remains at bedside 11/01/2022 Improvement last night she is fully awake and oriented, she knows she is in [facility], she did not know the year 2022. She is disoriented to the date and months and to persons She denies any complaints, no headache dizziness weakness or numbness. No other symptoms like chest pain or abdominal pain, no urinary symptoms Ramires catheter and replaced. MRI of the brain is pending, and the result of CSF is pending Creatinine stable 1.5 today. Leukocytosis improving 12.5, temperature is coming down to 99.8. Patient remains on ceftriaxone and IV vancomycin She remains on normal saline at 100 mL per hour. Renal ultrasound showing no hydronephrosis Objective - Vital Signs Vital signs: Vital Signs Temp 98.4 F 11/01/22 09:00 Pulse 78 11/01/22 09:00 Resp 16 11/01/22 09:00 BP 130/80 11/01/22 09:00 Pulse Ox 95 11/01/22 09:00 FiO2 Intake & Output 10/31/22 11/01/22 11/01/22 18:59 06:59 18:59 Intake Total 540 Output Total 450 700 Balance 90 -700 Intake: Oral 540 Output: Urine 450 700 Other: Voiding Method Diaper Indwelling Catheter # Bowel Movements 1 - Exam -GENERAL: The patient is awake alert, oriented and more interactive, not in any acute distress. Well developed, well nourished. HEENT: Pupils are round and equally reacting to light. EOMI. No scleral icterus. No conjunctival pallor. Normocephalic, atraumatic. No pharyngeal erythema. No thyromegaly. CARDIOVASCULAR: S1 and S2 present. No murmurs, rubs, or gallops. PULMONARY: Chest is clear to auscultation, no wheezing . no crackles. ABDOMEN: Soft, nontender, nondistended, normoactive bowel sounds. No palpable organomegaly. MUSCULOSKELETAL: No joint swelling or deformity. EXTREMITIES: No cyanosis, clubbing, or pedal edema. NEUROLOGICAL: Gross neurological examination did not reveal any focal deficits. SKIN: No rashes. no petechiae. - Labs CBC & Chem 7: 11/01/22 08:55 11/01/22 08:55 Labs: Abnormal Lab Results - Last 24 Hours (Table) 10/31/22 10/31/22 11/01/22 Range/Units 10:07 14:54 08:55 WBC 11.2 H (3.8-10.6) k/uL Hgb 11.1 L (11.4-16.0) gm/dL Hct 33.6 L (34.0-46.0) % Neutrophils # 9.5 H (1.3-7.7) k/uL Lymphocytes # 0.7 L (1.0-4.8) k/uL Creatinine (0.52-1.04) mg/dL POC Glucose (mg/dL) 193 H (70-110) mg/dL CSF RBC 360 H (0-10) u/L 11/01/22 Range/Units 08:55 WBC (3.8-10.6) k/uL Hgb (11.4-16.0) gm/dL Hct (34.0-46.0) % Neutrophils # (1.3-7.7) k/uL Lymphocytes # (1.0-4.8) k/uL Creatinine 1.48 H (0.52-1.04) mg/dL POC Glucose (mg/dL) (70-110) mg/dL CSF RBC (0-10) u/L Microbiology - Last 24 Hours (Table) 10/30/22 16:55 Blood Culture - Preliminary Blood 10/30/22 21:00 Gram Stain - Preliminary Other - Other Wound Culture - Preliminary Cele albicans 10/31/22 06:00 Urine Culture - Final Urine,Voided 10/31/22 10:07 CSF Gram Stain - Preliminary Cerebral Spinal Fluid CSF Culture - Preliminary Assessment and Plan Assessment: -Acute delirium/hallucinations likely due to withdrawal from psychiatry substance use.(Kratom and Phenibut), Possible paraneoplastic/autoimmune etiologies is also being considered. Rule out intracranial infection -Metabolic/toxic encephalopathy secondary to above. Improved -Hypoglycemia secondary to above. Improved (patient currently able to eat and drink) -Acute kidney injury with acute urinary retention -History of anxiety/depression -Possible urinary tract infection -Acute maxillary sinusitis as per CT head -History of sinus surgery -Acute urinary retention. resolved Plan: Change her fluids to normal salineat 100 mL per hour (stopped D5 as her sugars up). Accu-Cheks every before meals at bedtime Infectious disease consult. We will defer antibiotic management ID team, follow-up CSF results. Follow-up culture result Neurology and psychiatry team on the case Further workup by neurologist is pending including NMDA test , MRI of the brain is pending Place Ramires catheter, for urinary retention and acute kidney injury, check renal ultrasound and consult materials planning manager. Start Flomax Labs and medication were reviewed.. Continue same treatment. Continue with symptomatic treatment. Resume home medication. Monitor labs and vitals. DVT and GI prophylaxis. Further recommendations as per clinical course of the patient DVT prophylaxis: Subcutaneous heparin GI Prophylaxis: Pepcid PT/OT: Deferred osis is guarded
[2022-11-01 13:18] LABS: N. gonorrhoeae,PCR Negative (Neg,Equiv); Neisseria Source Urine
[2022-11-01 13:21] LABS: C. trachomatis,PCR Negative (Neg,Equiv); Chlamydia trachomatis Source Vagina
--- NOTE | 2022-11-01 13:25 | P.NPCON ---
History of Present Illness - Reason for Consult acute renal failure - History of Present Illness Reason for consultation: Acute kidney injury next History of present illness: Patient is a 37-year-old female seen in consultation for acute kidney injury. Patient's baseline creatinine is near 0.6 and peaked at 1.5 on this admission yesterday and is 1.48 today. Patient came to the hospital on 10/25/2021 due to altered mental status. Patient was initially admitted to mental health unit due to acute psychosis. Patient became more delirious and was subsequently transferred to medical floor. Computed tomography scan showed no acute intracranial process. She also underwent LP.atient received IV acyclovir which was started on 10/30/2022 and discontinued 10/31/2022. She is also receiving normal saline at 100 mL an hour. Patient is not a very reliable historian. She tells me that she is not sure why she is even in the hospital. She does admit to taking Motrin and Aleve on a daily basis at home. She currently has a Ramires catheter and is nonoliguric. Oral intake is fair. Hemodynamically stable. On room air. No edema. Denies any personal or family history of kidney disease. No history of diabetes. Vital signs are stable. General: No acute distress. HEENT: Head exam is unremarkable. LUNGS: No audible rhonchi or wheezes. HEART: Rate and Rhythm are regular. ABDOMEN: Nontender. EXTREMITITES: No edema. Past Medical History Past Medical History: Asthma Additional Past Medical History / Comment(s): Patient has a history of migraine headaches; possible fibromyalgia per mom History of Any Multi-Drug Resistant Organisms: None Reported Past Surgical History: Orthopedic Surgery Additional Past Surgical History / Comment(s): Patient has had sinus surgery, and reconstruction surgery of her right knee Past Anesthesia/Blood Transfusion Reactions: No Reported Reaction Past Psychological History: No Psychological Hx Reported Smoking Status: Never smoker, Unknown if ever smoked Past Alcohol Use History: Occasional Additional Drug Use History / Comment(s): Kratom Medications and Allergies Home Medications Medication Instructions Recorded Confirmed Type Albuterol Inhaler [Ventolin Hfa 2 puff INHALATION RT-Q6H PRN 10/19/22 10/24/22 History Inhaler] Cholecalciferol (Vitamin D3) 1,250 mcg PO WEEKLY 10/19/22 10/24/22 History [Decara (50,000 Iu)] Dextroamphetamine/Amphetamine 20 mg PO DAILY 10/19/22 10/24/22 History [Adderall] Escitalopram [Lexapro] 20 mg PO DAILY 10/19/22 10/24/22 History Kratom (Supplement) 1 dose PO DAILY PRN 10/19/22 10/24/22 History LORazepam [Ativan] 0.5 mg PO DAILY PRN 10/19/22 10/24/22 History Montelukast [Singulair] 10 mg PO DAILY 10/19/22 10/24/22 History Pseudoephedrine 12Hr [Sudafed 12 120 mg PO Q12HR PRN 10/19/22 10/24/22 History Hour] Allergies Allergy/AdvReac Type Severity Reaction Status Date / Time Latex, Natural Rubber Allergy Itching Verified 10/19/22 11:07 Physical Exam Vitals: Vital Signs Temp Pulse Pulse Resp BP Pulse Ox 11/01/22 09:00 98.4 F 78 16 130/80 95 11/01/22 03:37 98.5 F 75 16 119/73 96 10/31/22 23:13 99.1 F 77 14 101/56 95 10/31/22 20:00 98.8 F 82 16 116/69 96 10/31/22 16:00 98.2 F 83 18 130/82 93 L Intake and Output 10/31/22 11/01/22 11/01/22 22:59 06:59 14:59 Intake Total 540 Output Total 450 700 Balance 90 -700 Intake: Oral 540 Output: Urine 450 700 Other: Voiding Method Toilet Indwelling Catheter # Bowel Movements 1 Results - Lab Results Most recent lab results Calcium 8.5 mg/dL (8.4-10.2) 11/01/22 08:55 11/01/22 08:55 11/01/22 08:55 Assessment and Plan Plan: Assessment: 1. Acute kidney injury secondary to crystal-induced VENKATA from IV acyclovir and sepsis. Creatinine peaked at 1.51 on this admission and is 1.48 today. No proteinuria on initial UA. 2. Altered mental status with delirium and hallucinations. Possibly medication induced. Neurology and ID following. MRI of the brain pending. Plan: Maintain IV fluids. Avoid nephrotoxins. Check renal ultrasound. Continue to monitor renal function and urine output. Check vancomycin level. Thank you for the consultation. I will continue to follow the patient with you during her hospital stay.
[2022-11-01] MEDS ORDERED: traZODone HCL 50 MG TAB PO PRN (13:29)
--- NOTE | 2022-11-01 13:36 | P.PN ---
Progress Note - Text Progress Note Date: 11/01/22 Interval History: Patient was seen today for psychiatric follow-up today. The patient's nurse ates that patient appears to have improved since yesterday. Patient did refuse the last 2 doses of her Haldol IM doses. Patient was seen watching TV and was agreeable to speak to business writer today. She states that she does not remember much and does not recall who business writer was. She mentioned just remembering being on [address] last and does not recall what happened afterwards. She knew that she was in [facility] knew the correct date by looking at the board, she knew her full name. She was mildly lethargic today however was cooperative today during conversation. She was more logical and appropriate during conversation. Not responding to internal stimuli. We spoke about the unknown cause of her delirium/psychosis and business writer spoke with patient about the possibility of the kratom and phenibut use and patient aknowledged this and claims that she wont use it any longer. she claims that she does miss her child and home. she states that her came to visit her yesterday and it went well. denies any depression at this time. claims to have an improving appetite. She is not endorsing paranoia or any delusions at this time. At this time patient denies any suicidal or homical ideations, intent or plan. Patient denies any auditory, visual hallucinations. Patient has been taking some medications. Mental Status Exam: General Appearance: Patient appears to have several bruises over her arms and legs, stated age is alert, mildly confused, alert, showing improvement overall. Patient appears to have fair hygiene and grooming. Behavior: Patient is laying in bed, more directable and awake. Speech: Patient's speech is more clear and fluent. Mood/Affect: "alright" and has an improving affect Suicidality/Homicidality: Denies Perceptions: Denies Though content/process: not Rambling, more organized speech and thoughts, mild improvement. no delusions Memory and concentration: Concentration is improving. follows more complex tasks/commands today. oriented to person, place and time. Judgment and insight: improving IMPRESSIONS: Delirium likely secondary to psychoactive substances?? (kratom and phenibut) r/o infectious causes and more rare psychiatric causes hx of depression and anxiety PLAN: -At this time psychiatry will continue to follow along with treatment of patients delirium and finding the underlying cause. patient is overall improving significantly and possibly will sign off tomorrow if patient continues to improve -Delirium precautions recommended with patient including - avoiding use of narcotics and BILINGUAL MANAGER sedatives, limit anticholinergic medications when possible, frequent re-orientation, minimize use of restraints, open window shades during the day and close them at night -Would recommend the following medication changes/additions: continue prolixin and cogentin IM PRN mainly for agitation/psychosis. titrate off of baclofen today for tx of withdrawal delirium from phenibut. decreased scheduled haldol to 2 mg po tid for psychosis and will continue tapering down. added buspar 10 mg bid for anxiety, trazodone 50 mg qhs prn for sleep - awiting anti NMDA receptor IGg. syphillis - neg, tsh, and vitamin b12 look OK. appreicate neurology recs. currently awiting mri and lumbar puncture results. EEG apparently suggestive of mild encephalopathy and rpt EEG showed diffuse mild cerebral dysfunction. -business writer spoke with Dr Mckenzie about the case and updated him on the plan. appreciate neuro recs -can discontinue 1:1 sitter for safety at this time as patient is alex for safety and appears to be more clear. -Communicated plan to patient's nurse -Will continue to follow along tomorrow and likely sign off then. Patient will need to be given an outpatient psych follow up appt prior to d/c -Please contact with any questions.
--- NOTE | 2022-11-01 13:42 | P.PN ---
Subjective Progress Note Date: 11/01/22 Principal diagnosis: Fever Patient is a 37-year-old female with past medical history significant for mild asthma patient was brought into the ER at [facility] for evaluation of hallucination and altered mentation , the patient was initially afebrile subsequently she states spike a fever and the patient did have a lumbar puncture completed 10/31/2022 On today's evaluation that is 11/01/2022, patient remains to be afebrile, the patient is more awake and alert today, the patient denies any headache no chest pain shortness of breath or cough no vomiting or diarrhea has been reported Objective - Vital Signs Vital signs: Vital Signs Temp 98.4 F 11/01/22 09:00 Pulse 78 11/01/22 09:00 Resp 16 11/01/22 09:00 BP 130/80 11/01/22 09:00 Pulse Ox 95 11/01/22 09:00 FiO2 Intake & Output 10/31/22 11/01/22 11/01/22 18:59 06:59 18:59 Intake Total 540 Output Total 450 700 Balance 90 -700 Intake: Oral 540 Output: Urine 450 700 Other: Voiding Method Diaper Indwelling Catheter # Bowel Movements 1 - Exam GENERAL DESCRIPTION: Middle-age female lying in bed in no distress RESPIRATORY SYSTEM: Unlabored breathing , decreased breath sounds at bases HEART: S1 S2 regular rate and rhythm , ABDOMEN: Soft , no tenderness EXTREMITIES: No edema feet - Labs CBC & Chem 7: 11/01/22 08:55 11/01/22 08:55 Labs: Abnormal Lab Results - Last 24 Hours (Table) 10/31/22 10/31/22 11/01/22 Range/Units 10:07 14:54 08:55 WBC 11.2 H (3.8-10.6) k/uL Hgb 11.1 L (11.4-16.0) gm/dL Hct 33.6 L (34.0-46.0) % Neutrophils # 9.5 H (1.3-7.7) k/uL Lymphocytes # 0.7 L (1.0-4.8) k/uL Creatinine (0.52-1.04) mg/dL POC Glucose (mg/dL) 193 H (70-110) mg/dL CSF RBC 360 H (0-10) u/L 11/01/22 Range/Units 08:55 WBC (3.8-10.6) k/uL Hgb (11.4-16.0) gm/dL Hct (34.0-46.0) % Neutrophils # (1.3-7.7) k/uL Lymphocytes # (1.0-4.8) k/uL Creatinine 1.48 H (0.52-1.04) mg/dL POC Glucose (mg/dL) (70-110) mg/dL CSF RBC (0-10) u/L Microbiology - Last 24 Hours (Table) 10/30/22 21:00 Gram Stain - Preliminary Other - Other Wound Culture - Preliminary Cele albicans 10/31/22 06:00 Urine Culture - Final Urine,Voided 10/31/22 10:07 CSF Gram Stain - Preliminary Cerebral Spinal Fluid CSF Culture - Preliminary Assessment and Plan (1) Fever Current Visit: Yes Status: Acute Code(s): R50.9 - FEVER, UNSPECIFIED SNOMED Code(s): 206242107 Plan: 1patient with SIRS in this patient who did have a fever elevated white count predominantly with mental status/DATA SCIENCE AND IOT MANAGER symptoms with concern for possible cellulitis versus meningitis patient lungs were clear to auscultation chest x- ray was negative abdomen is soft seen abdominal pelvis did not show acute normality no evidence of any joint swelling or cellulitis 2-patient did have LP completed and CSF results has been normal 3-patient antibiotic has been adjusted to Rocephin 2 g daily vancomycin and acyclovir were discontinued yesterday after results of the CSF were available Time with Patient: Less than 30
[2022-11-01] MEDS: BACLOFEN 10 MG TAB PO SCH ×2 (13:54→17:38)
--- NOTE | 2022-11-01 15:12 | P.PN ---
Subjective Progress Note Date: 11/01/22 11/01/2022: Patient was seen for a follow-up. Patient is even more mentally clear at this time. She is fully oriented. Patient has not been walking, as she feels generalized weak. Offer as no neurological symptoms otherwise. 10/31/2022: The patient was seen for a follow-up. Patient's was also present today. Also discussed with primary physician. Patient has remarkably improved. Her believes that she is about 65% back to baseline. Her speech is still slower. Patient denies any headache, any nausea or vomiting. She does feel slightly lightheaded and nauseous and stated when she woke up in the morning but not anymore. Patient is laying comfortably in the bed at this time. 10/30/2022: Patient initially seen by Dr. Hector Maher. Please refer to his note for details. Patient is a 37-year-old female, admitted with acute psychosis. Psychiatry and board. Patient needs spinal fluid and MRI, but patient has been not coope rative. Lumbar puncture was attempted twice but patient was restless and did not cooperate. Patient had undergone prolonged EEG testing today. Patient was seen for a follow-up. Patient states "I don't feel good" however for headache, she denies any headache. On asking repeated questions, patient states "leave me alone". On asking more questions, patient stated "stop". Patient became slightly irritable, started using foul language. The sitter was present throughout this encounter. Patient has a tattoo on the right dorsum of the foot. On asking what it is, patient states it's the "sign of harmony". I spoke to patient's mother, who mentions that patient has history of anxiety when she was around 20. She then has some depression after her second 6 years ago. The first at age 20 and was put on adoption. Patient does have contact with her adopted child. Patient does have history of some abuse of Kratom and phenibut, but nothing else that patient's mother knows about. Some history of alcohol, but not to the point of abuse. SOME OF THE WORK-UP DURING THIS HOSPITAL VISIT CONSISTED OF: So far the patient has been afebrile. Blood cells 5.7 thousand which is within normal limits Ammonia level is less than 9. Calcium, sodium, creatinine, TSH is within normal limits. Folate is 26.6 Vitamin B12 is 1221 CT of the head is reported as no acute intracranial processes. Follow-up MRI can be performed as clinically indicated. Air fluid level within the right maxillary sinus. Correlate for acute sinusitis. Urine drug screen initially when she presented to ED was positive for propoxyphene, amphetamine and benzo. Treponema pallidum antibody was nonreactive. BHARTI is negative Abwv-kzruip-zwrpuxnl DNA antibodies negative Pelvic ultrasound is reported as no evidence for acute process. No teratoma visualized by this not refer within the images. CT abdomen and pelvis is reported as significant motion artifact limiting evaluation. No abdomen mass visualized on this noncontrast limited exam. No evidence for acute processes visualized on this noncontrast limited exam Objective - Vital Signs Vital signs: Vital Signs Temp 98.4 F 11/01/22 09:00 Pulse 78 11/01/22 09:00 Resp 16 11/01/22 09:00 BP 130/80 11/01/22 09:00 Pulse Ox 95 11/01/22 09:00 FiO2 Intake & Output 10/31/22 11/01/22 11/01/22 18:59 06:59 18:59 Intake Total 540 Output Total 450 700 Balance 90 -700 Intake: Oral 540 Output: Urine 450 700 Other: Voiding Method Diaper Indwelling Catheter # Bowel Movements 1 - Exam Patient is a young female, who is laying in the bed, appears comfortable. Patient is not in any distress. Patient's mentation is even more clear, almost back to normal. Patient is alert and awake, knows she is in the floor [address] in [facility]. Patient states it is 11/01/2022. Her speech and language funct ions are normal. On cranial nerve examination, pupils are equal, round and reacting to light. Vi sual petersen are full on confrontation with no neglect. Her face is symmetric. Tongue protrudes the midline. No evidence of oral trauma. Hearing appears normal. Facial sensations normal. Palatal elevation and sensation normal. On muscle strength testing, there is no pronator drift. 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 Her strength in the lower extremities is normal. Deep tendon reflexes are symmetric 1+ to 2+ in the arms and legs and plantars are downgoing. Sensory to touch is equal with no neglect on double simultaneous stimulation. Cerebellar function showed no ataxia for cqicvn-it-vfuv testing. Tone and bulk of muscles normal. No obvious twitching, tremors. Gait deferred.. On general examination, there is no carotid bruit or murmur, S1-S2 audible. Chest is clear on consultation. Abdomen is soft nontender. No organomegaly, bowel sounds present. Peripheral pulses are present. No edema. Patient has multiple bruises over her dorsum of the hand, and in the lower legs. Patient's neck is supple. - Labs CBC & Chem 7: 11/01/22 08:55 11/01/22 08:55 Labs: Abnormal Lab Results - Last 24 Hours (Table) 10/31/22 10/31/22 11/01/22 Range/Units 10:07 14:54 08:55 WBC 11.2 H (3.8-10.6) k/uL Hgb 11.1 L (11.4-16.0) gm/dL Hct 33.6 L (34.0-46.0) % Neutrophils # 9.5 H (1.3-7.7) k/uL Lymphocytes # 0.7 L (1.0-4.8) k/uL Creatinine (0.52-1.04) mg/dL POC Glucose (mg/dL) 193 H (70-110) mg/dL CSF RBC 360 H (0-10) u/L 11/01/22 Range/Units 08:55 WBC (3.8-10.6) k/uL Hgb (11.4-16.0) gm/dL Hct (34.0-46.0) % Neutrophils # (1.3-7.7) k/uL Lymphocytes # (1.0-4.8) k/uL Creatinine 1.48 H (0.52-1.04) mg/dL POC Glucose (mg/dL) (70-110) mg/dL CSF RBC (0-10) u/L Microbiology - Last 24 Hours (Table) 10/30/22 16:55 Blood Culture - Preliminary Blood 10/30/22 21:00 Gram Stain - Preliminary Other - Other Wound Culture - Preliminary Cele albicans 10/31/22 06:00 Urine Culture - Final Urine,Voided 10/31/22 10:07 CSF Gram Stain - Preliminary Cerebral Spinal Fluid CSF Culture - Preliminary Assessment and Plan Assessment: Delirium likely due subsutance abuse (Kratom and phenibut). Rule out any central causes such as autoimmune disease explaining her symptoms: So far EEG is negative for seizure or discharges, negative BHARTI, syphilis testing, normal Vitamin B12, folate, TSH and ammonia level. Had one low grade fever on 10/28/22 of 100.3 after 4 days in this admission but otherwise afebrile and no leukocytosis. History of depression and anxiety Possible substance abuse. Plan: Routine EEG: Is abnormal. The background slowing is suggestive of mild encephalopathy. Otherwise, no seizure or discharges. Prolonged EEG 10/30/2022 revealed essentially sleep EEG. No clinical or electrographic seizures were recorded. No epileptiform activity was present. During the 1 very short period of increased alertness, with movement, background frequencies were seen in the 7-8 Hz range with superimposed faster, beta frequencies. Some diffuse theta range slowing was seen more anteriorly. These findings suggest mild diffuse cerebral dysfunction. Clinical correlation is recommended. CSF with 0 WBCs, 360 rbc, glucose is normal 56, viral cultures negative. CSF protein pending. Pending MRI of the brain to rule out any central cause such as a mass or other causes of central cause. CT brain was negative. Pending anti NMDA. Spoke to the psychiatrist Dr. Mccarty. He is going to further taper down her psych medications. Patient is improving remarkably. Ck level is mildly elevated 642 and repeat CK 355, improved. On thiamine 100 mg IV daily. We'll defer the rest of the management to the psychiatry team Patient counseled about abstinence from Kratom and phenibut. Start PT, OT. Dr. Hector Maher Will resume neurology service in the morning.
[2022-11-01 16:43] LABS: Glucose,Whole Blood 102 mg/dL (70-110)
[2022-11-01] MEDS: busPIRone HCl 10 MG TAB PO SCH ×2 (17:32→20:17)
[2022-11-01] MEDS: ESCITALOPRAM 10 MG TAB PO SCH (17:38)
[2022-11-01] MEDS: TAMSULOSIN 0.4 MG CAP.ER.24H PO SCH (17:38)
[2022-11-01] MEDS: THIAMINE 100 MG/ML 2 ML VIAL IVP SCH (17:38)
[2022-11-01] MEDS: MONTELUKAST 10 MG TAB PO SCH (17:38)
[2022-11-01 20:11] LABS: Glucose,Whole Blood 103 mg/dL (70-110)
[2022-11-02] MEDS: SODIUM CHLORIDE 0.9% 1,000 ML IV SCH ×2 (04:39→16:37)
[2022-11-02 06:05] LABS: Glucose,Whole Blood 101 mg/dL (70-110)
[2022-11-02 08:37] LABS: Basophils % (A) 0 %; Eosinophils # (A) 0.1 k/uL (0-0.7); Eosinophils % (A) 2 %; HCT 32.1 % (34.0-46.0); HGB 10.1 gm/dL (11.4-16.0); Hypochromasia Slight; Lymphocytes # (A) 0.8 k/uL (1.0-4.8); Lymphocytes % (A) 10 %; MCH 26.3 pg (25.0-35.0); MCHC 31.6 g/dL (31.0-37.0); MCV 83.1 fL (80.0-100.0); Mean Platelet Volume 7.5; Monocytes # (A) 0.5 k/uL (0-1.0); Monocytes % (A) 6 %; Neutrophils # (A) 6.1 k/uL (1.3-7.7); Neutrophils % (A) 80 %; Platelet Count 301 k/uL (150-450); RBC 3.86 m/uL (3.80-5.40); RDW 15.6 % (11.5-15.5); WBC 7.7 k/uL (3.8-10.6)
[2022-11-02] MEDS: MONTELUKAST 10 MG TAB PO SCH (08:46)
[2022-11-02] MEDS: HEPARIN SODIUM,PORCINE/PF 5,000 UNIT/0.5 ML SYRINGE SQ SCH ×2 (08:46→20:17)
[2022-11-02] MEDS: ESCITALOPRAM 10 MG TAB PO SCH (08:46)
[2022-11-02] MEDS: THIAMINE 100 MG/ML 2 ML VIAL IVP SCH (08:48)
[2022-11-02] MEDS: busPIRone HCl 10 MG TAB PO SCH ×2 (08:52→20:15)
[2022-11-02] MEDS: ACETAMINOPHEN TAB 325 MG TAB PO PRN ×2 (08:54→23:33)
[2022-11-02 08:56] LABS: Calcium 8.3 mg/dL (8.4-10.2); Magnesium 1.7 mg/dL (1.6-2.3); Potassium 3.7 mmol/L (3.5-5.1)
--- NOTE | 2022-11-02 11:14 | P.PN ---
Subjective Patient is seen in follow-up for acute kidney injury. Renal function improving. Mentation appears to be at baseline. On IV fluids. Nonoliguric. No active complaints. Vital signs are stable. General: No acute distress. HEENT: Head exam is unremarkable. LUNGS: No audible rhonchi or wheezes. HEART: Rate and Rhythm are regular. ABDOMEN: Nontender. EXTREMITITES: No edema. Objective - Vital Signs Vital signs: Vital Signs Temp 98.2 F 11/02/22 08:00 Pulse 71 11/02/22 08:00 Resp 16 11/02/22 08:00 BP 132/72 11/02/22 08:00 Pulse Ox 99 11/02/22 08:00 FiO2 Intake & Output 11/01/22 11/02/22 11/02/22 18:59 06:59 18:59 Output Total 800 225 Balance -800 -225 Output: Urine 800 225 Other: Voiding Method Indwelling Catheter Indwelling Catheter - Labs CBC & Chem 7: 11/02/22 07:52 11/02/22 07:52 Labs: Abnormal Lab Results - Last 24 Hours (Table) 11/01/22 11/02/22 11/02/22 Range/Units 08:55 07:52 07:52 Hgb 10.1 L (11.4-16.0) gm/dL Hct 32.1 L (34.0-46.0) % RDW 15.6 H (11.5-15.5) % Lymphocytes # 0.8 L (1.0-4.8) k/uL Chloride 109 H (98-107) mmol/L Creatinine 1.48 H 1.31 H (0.52-1.04) mg/dL Calcium 8.3 L (8.4-10.2) mg/dL Microbiology - Last 24 Hours (Table) 10/30/22 21:00 Gram Stain - Final Other - Other Wound Culture - Final Cele albicans 10/31/22 10:07 CSF Gram Stain - Preliminary Cerebral Spinal Fluid CSF Culture - Preliminary 10/30/22 16:55 Blood Culture - Preliminary Blood 10/31/22 06:00 Urine Culture - Final Urine,Voided Assessment and Plan Plan: Assessment: 1. Acute kidney injury secondary to crystal-induced VENKATA from IV acyclovir and sepsis. Creatinine peaked at 1.51 this admission and is 1.31 today. No proteinuria on initial UA. No hydronephrosis noted on kidney ultrasound. Vancomycin level XVI.2 dated 11/01/2022. 2. Altered mental status with delirium and hallucinations. Possibly medication induced. Neurology and ID following. MRI of the brain pending. Plan: Maintain IV fluids. Avoid nephrotoxins. Continue to monitor renal function and urine output.
[2022-11-02 11:43] LABS: Glucose,Whole Blood 97 mg/dL (70-110)
--- NOTE | 2022-11-02 12:39 | P.PN ---
Subjective From previous records Patient is a 37-year-old female without significant past medical history was admitted to the hospital due to aggressive behavior and delirium/psychosis on 10/19/2022. Patient was initially admitted to mental health unit and is being treated. Yesterday evening patient became delirious and hallucinating with altered sensorium. Patient received Zyprexa dose for agitation about 30 minutes prior to this episode. rapid response team was called and patient was eventually transferred to medical floor for further management. Apparently patient has not been sleeping well and does not stressful situation and ongoing foreclosure of her home. No prior history of psychiatric admission. Patient is currently not on any medications at home. She is using kratom and Phenibut at home due to her anxiety. Does vape. Denies any IV injections illicit drug use. CT head showed no acute intracranial process. Air-fluid levels within the right maxillary sinus. Correlate for acute sinusitis. Laboratory data showed WBC 5.4, hemoglobin 10.7 platelets 329 sodium 138 potassium 3.3 chloride 97 bicarb is 31 BUN 21 and creatinine 0.75 and blood sugar 101 liver enzymes are not elevated. UDS on admission positive for propoxyphene on, amphetamines and benzodiazepines. Urinalysis today showed cloudy with trace ketones and nitrite positive and WBCs 8. 10/26/2022 Patient is currently lying in the bed. Still agitated and paradorsal mental status is waxing and waning. Otherwise patient has been afebrile. Continued on as needed Prolixin IM every 6 hourly for agitation. Could not provide any history at this time. Laboratory showed WBC 5.4 hemoglobin 10.8 and platelets 315, sodium 141 potassium 4.0 chloride 102 bicarb is 29 BUN 11 and creatinine 0.6. Neurology recommends EEG which showed background slowing suggestive of mild enc ephalopathy. No seizure discharges. MRI of the brain to rule out central causes. CT head negative. Patient was started on thiamine IV daily. 10/27/2022 Patient is currently lying in the bed. Mentation remains the same. Hallucinating and talking to herself. Awake alert oriented x0. Does not follow commands. Patient was able to void spontaneously. Febrile. Continued on ceftriaxone for possible urinary tract infection. Patient is not cooperative for the meeting including MRI. Psychiatry and neurology is on board. Bedside sitter is in place. 10/28/2022. Patient's mentation remains the same. Does not follow commands. Patient does have soft restraints. Bedside sitter is in place. Patient was having diffuse muscle twitches and spasms and abnormal eye movements. Discussed with psychiatry team. Patient has been having with severe withdrawal symptoms for the past 10 days. Possible underlying paraneoplastic/autoimmune pathology is also being considered. Patient was given a dose of Valium IV x110 mg. Was able to get CT of abdomen pelvis without contrast however most from artifact aspect of the quality. MRI with contrast is recommended if there is further concern for ovarian t eratoma leading to anti-NMDA receptor encephalitis. 10/29/2022 Patient is more agitated and currently under four-point restraints. Mentation remains the same. Today patient received 2 mg of Ativan prior to lumbar puncture and had to abort the procedure since the patient is restless and agitated. Will discuss with ICU team since patient may require intubation and sedation to to proceed with lumbar puncture. Repeat EEG was ordered as per neurology. Urine culture showed normal rose. Ceftriaxone will be discontinued. Completed 5 days of antibiotics. Laboratory data showed WBC 12.2 hemoglobin 12.0 and platelets 400 sodium 141 potassium 3.9 chloride 106 bicarb is 23 BUN 10 and creatinine 0.65 and CRP less than 5 CPK level 642 I'm resuming the care of the patient today on 10/2922 This is a 37 years old female who was initially admitted to the site units for possible psychosis and delirium however she became more altered mental status and ID team was called and patient was transferred to the general medical floor. Patient is suspected to have metabolic/toxic encephalopathy secondary to substance abuse and withdrawal as patient was using Kratom and phenibut. Patient Patient was closely by psychiatry and neurology service was treated with benzodiazepines, as well as baclofen, Cogentin and Prolixin. Patient remained confused and she was agitated, she has to be placed on the restrained. This morning I discussed the case with the bedside nurse who told me this is the first time she is calm down significantly, patient today during my evaluation she was lying in bed, sleeping, confused, calm, looks relaxed. No abnormal movements. No restraints. She has mild bruises on her legs. Looks healing. No other information was obtained from the patient. She is hemodynamically stable, however she had fever 100 and 1. 2 yesterday and 100.3 one day earlier. Also patient has worsening leukocytosis from 5.5 up to 12 K up to 15.6 k today. Lumbar puncture could not be obtained because of her agitated status also MRI of the brain is pending, today is not available because its holiday In this facility. Her sugar was slightly low and improved with oral juice, therefore we switched her normal saline up to D5 normal saline at 75 mL/h I am going to increase the rate to 100 mL per hour. Also will increase her Accu-Chek every 4 hours and give D50 when necessary for glucose less than 80 mg per dcL Because of her fever and leukocytosis we consulted infectious disease team was going to order it may take was suspected to have UTI and she was placed on ceftriaxone. But it was stopped yesterdat because urine culture came back negative. We ordered a chest x-ray which was unremarkable. Sitter at bedside 10/31/2022 Patient today showing significant improvement, in the morning she was still tended however this evening she has dramatic improvement, she is awake and alert and interactive, she is oriented and she is complaining from feeling tired. No other specific symptoms. Patient is hemodynamically stable. Fever started improving (99.8 today ) and patient mentation improved after she was started on antibiotic Creatinine went up to 1.5, bladder scan showing residual urine more than 300, discussed with staff to place Ramires catheter Check renal ultrasound ordered and pending, also will consult receivable manager Patient had lumbar puncture done today and result is pending. Also MRI of the brain and anti-NMDA test is pending She remains on IV vancomycin and ceftriaxone per ID team. A second liver was stopped. Also there is some report of vaginal discharge, we sent this for chlamydia, gonorrhea fungal infection and genital culture which are pending as well. Sitter remains at bedside 11/01/2022 Improvement last night she is fully awake and oriented, she knows she is in [facility], she did not know the year 2022. She is disoriented to the date and months and to persons She denies any complaints, no headache dizziness weakness or numbness. No other symptoms like chest pain or abdominal pain, no urinary symptoms Ramires catheter and replaced. MRI of the brain is pending, and the result of CSF is pending Creatinine stable 1.5 today. Leukocytosis improving 12.5, temperature is coming down to 99.8. Patient remains on ceftriaxone and IV vancomycin She remains on normal saline at 100 mL per hour. Renal ultrasound showing no hydronephrosis 11/02/2022 patient mentation improved Patient denies prior symptoms She feels tired and generally weak Still has Ramires catheter Creatinine improving down to 1.3 MRI of the pain and anti-NMDA are pending. Vancomycin was discontinued, patient is on ceftriaxone 2 g thiamine 100 mL per h our admission similar to Objective - Vital Signs Vital signs: Vital Signs Temp 98.2 F 11/02/22 08:00 Pulse 66 11/02/22 11:37 Resp 16 11/02/22 11:37 BP 128/85 11/02/22 11:37 Pulse Ox 98 11/02/22 11:37 FiO2 Intake & Output 11/01/22 11/02/22 11/02/22 18:59 06:59 18:59 Output Total 800 225 Balance -800 -225 Output: Urine 800 225 Other: Voiding Method Indwelling Catheter Indwelling Catheter - Exam -GENERAL: The patient is awake alert, oriented and more interactive, not in any acute distress. Well developed, well nourished. HEENT: Pupils are round and equally reacting to light. EOMI. No scleral icterus. No conjunctival pallor. Normocephalic, atraumatic. No pharyngeal erythema. No thyromegaly. CARDIOVASCULAR: S1 and S2 present. No murmurs, rubs, or gallops. PULMONARY: Chest is clear to auscultation, no wheezing . no crackles. ABDOMEN: Soft, nontender, nondistended, normoactive bowel sounds. No palpable organomegaly. MUSCULOSKELETAL: No joint swelling or deformity. EXTREMITIES: No cyanosis, clubbing, or pedal edema. NEUROLOGICAL: Gross neurological examination did not reveal any focal deficits. SKIN: No rashes. no petechiae. - Labs CBC & Chem 7: 11/02/22 07:52 11/02/22 07:52 Labs: Abnormal Lab Results - Last 24 Hours (Table) 11/02/22 11/02/22 Range/Units 07:52 07:52 Hgb 10.1 L (11.4-16.0) gm/dL Hct 32.1 L (34.0-46.0) % RDW 15.6 H (11.5-15.5) % Lymphocytes # 0.8 L (1.0-4.8) k/uL Chloride 109 H (98-107) mmol/L Creatinine 1.31 H (0.52-1.04) mg/dL Calcium 8.3 L (8.4-10.2) mg/dL Microbiology - Last 24 Hours (Table) 10/30/22 16:55 Blood Culture - Preliminary Blood 10/30/22 21:00 Gram Stain - Final Other - Other Wound Culture - Final Cele albicans 10/31/22 10:07 CSF Gram Stain - Preliminary Cerebral Spinal Fluid CSF Culture - Preliminary 10/31/22 06:00 Urine Culture - Final Urine,Voided Assessment and Plan Assessment: -Acute delirium/hallucinations likely due to withdrawal from psychiatry substance use.(Kratom and Phenibut), Possible paraneoplastic/autoimmune etiologies is also being considered. Rule out intracranial infection -Metabolic/toxic encephalopathy secondary to above. Improved -Hypoglycemia secondary to above. Improved (patient currently able to eat and drink) -Acute kidney injury with acute urinary retention -History of anxiety/depression -Possible urinary tract infection -Acute maxillary sinusitis as per CT head -History of sinus surgery -Acute urinary retention. resolved Plan: Change her fluids to normal salineat 50 mL per hour Infectious disease consult. We will defer antibiotic management ID team, follow-up CSF results. Follow-up culture result Neurology and psychiatry team on the case Further workup by neurologist is pending including NMDA test , MRI of the brain is pending Place Ramires catheter, for urinary retention and acute kidney injury,,consult receivable manager. Start Flomax Labs and medication were reviewed.. Continue same treatment. Continue with symptomatic treatment. Resume home medication. Monitor labs and vitals. DVT and GI prophylaxis. Further recommendations as per clinical course of the patient DVT prophylaxis: Subcutaneous heparin GI Prophylaxis: Pepcid PT/OT: Deferred osis is guarded
--- NOTE | 2022-11-02 12:42 | P.PN ---
Subjective Progress Note Date: 11/02/22 I am continuing to follow-up with patient. She was last seen by Dr. Shaw yesterday. It appears, patient is doing drastically better. She denies of any headache, focal weakness, nausea or vomiting. She does not recall what transpired what happened during this stay but feels better. Denies history of seizures and denies recalling if she febrile or feeling sick prior to hospital presentation. Objective - Vital Signs Vital signs: Vital Signs Temp 98.2 F 11/02/22 08:00 Pulse 66 11/02/22 11:37 Resp 16 11/02/22 11:37 BP 128/85 11/02/22 11:37 Pulse Ox 98 11/02/22 11:37 FiO2 Intake & Output 11/01/22 11/02/22 11/02/22 18:59 06:59 18:59 Output Total 800 225 Balance -800 -225 Output: Urine 800 225 Other: Voiding Method Indwelling Catheter Indwelling Catheter - Exam General: Is not in acute distress. Neuro: Is awake, alert, oriented to self, place and time. Is following commands. No aphasia or neglect. Visual petersen are full to confrontation. EOM intact and no nystagmus. No facial weakness. No dysarhria Motor: Strength is 5/5 throughout. sensation: Normal. - Labs CBC & Chem 7: 11/02/22 07:52 11/02/22 07:52 Labs: Abnormal Lab Results - Last 24 Hours (Table) 11/02/22 11/02/22 Range/Units 07:52 07:52 Hgb 10.1 L (11.4-16.0) gm/dL Hct 32.1 L (34.0-46.0) % RDW 15.6 H (11.5-15.5) % Lymphocytes # 0.8 L (1.0-4.8) k/uL Chloride 109 H (98-107) mmol/L Creatinine 1.31 H (0.52-1.04) mg/dL Calcium 8.3 L (8.4-10.2) mg/dL Microbiology - Last 24 Hours (Table) 10/30/22 16:55 Blood Culture - Preliminary Blood 10/30/22 21:00 Gram Stain - Final Other - Other Wound Culture - Final Cele albicans 10/31/22 10:07 CSF Gram Stain - Preliminary Cerebral Spinal Fluid CSF Culture - Preliminary 10/31/22 06:00 Urine Culture - Final Urine,Voided Assessment and Plan Assessment: Delirium likely due subsutance abuse (Kratom and phenibut). Rule out any central cause: So far EEG is negative for seizure or discharges, negative BHARTI, syphilis testing, normal Vitamin B12, folate, TSH and ammonia level. MRI Brain and CSF study is negative. One low dose fever on 10/28/22 of 100.3 after 4 days in this admission but otherwise afebrile and no leukocytosis---resolved History of depression and anxiety Plan: Prolonged EEG 10/30/2022 revealed essentially sleep EEG. No clinical or electrographic seizures were recorded. No epileptiform activity was present. During the 1 very short period of increased alertness, with movement, background frequencies were seen in the 7-8 Hz range with superimposed faster, beta frequencies. Some diffuse theta range slowing was seen more anteriorly. These findings suggest mild diffuse cerebral dysfunction. Clinical correlation is recommended. CSF with 0 WBCs, 360 rbc, glucose is normal 56, protein is 31. CSF culture is no organism seen. Herpes 1/2 negative. HIV non reactive. comprehensive viral csf: negative. Ck level is mildly elevated 642 and repeat CK 355, improved. Pending MRI Brain (scheduled for today in afternoon) and pending result of anti NMDA. On thiamine 100 mg IV daily. We'll defer the rest of the management to the psychiatry team Plan discussed with the patient and her nurse. If MRI Brain is negative then will defer decision of clearing her to psychiatry team since she is drastically improved. Time with Patient: Less than 30
--- NOTE | 2022-11-02 13:57 | P.PN ---
Progress Note - Text Progress Note Date: 11/02/22 Interval History: Patient was seen today for psychiatric follow-up today. Patient's daughter ates that she is doing pretty well and has been taking her medications. Patient had court yesterday for a court hearing for mental health order. Patient was seen laying in bed today after eating some of her lunch. She states that her stomach was a bit upset and could need all her lunch however states that her appetite is improving. She did appear to be fairly directable and cooperative during conversation and was appropriate. She was logical in her thought process. She was able to give me her full name, date of , today's date and also her location. She claims that she has been feeling a bit sleepy and was wondering if those from the medications. States that she is sleeping fairly at nighttime. She did not take the trazodone last night. Denying any side effects from medications at this time. We again spoke about her discharge plan and also her to do psychiatric follow-up given the severity of her psychotic/delirium which she presented with. She will be doing an MRI later on today. She appears to be more future oriented and organized. she claims that she does miss her child and home. She is not endorsing paranoia or any delusions at this time. At this time patient denies any suicidal or homical ideations, intent or plan. Patient denies any auditory, visual hallucinations. Patient has been taking some medications. Mental Status Exam: General Appearance: Patient appears to be alert, cooperative, showing improvement overall. Patient appears to have fair hygiene and grooming. Behavior: Patient is laying in bed, more directable and awake. Appropriate. Speech: Patient's speech is more clear and fluent. Mood/Affect: Aims that her mood is "fine" and has an improving affect Suicidality/Homicidality: Denies Perceptions: Denies Though content/process: not Rambling, more organized speech and thoughts. no delusions or paranoia. Memory and concentration: Concentration is improving. follows complex tasks/commands today. oriented to person, place and time. Judgment and insight: improving IMPRESSIONS: Delirium likely secondary to psychoactive substances?? 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 can continue buspar 10 mg bid for anxiety, trazodone 50 mg qhs prn for sleep if needed. -syphillis - neg, tsh, and vitamin b12 look OK. appreicate neurology recs. EEG apparently suggestive of mild encephalopathy and rpt EEG showed diffuse mild cerebral dysfunction. Pending - MRI Brain (scheduled for today) and result of anti NMDA -Communicated plan to patient's nurse -please make arrangements for patient to have outpatient psychiatric follow up p rior to discharge to continue monitoring of her condition on the outpatient setting. -life underwriter spoke with pts Abhi over the phone yesterday to address concerns, answer questions and give insight into causes, treatment and future follow up along with assuring a safe home envt upon d/c -At this time psychiatry will sign off. -Please contact with any questions.
--- NOTE | 2022-11-02 13:58 | P.PN ---
Subjective Progress Note Date: 11/02/22 Principal diagnosis: Fever Patient is a 37-year-old female with past medical history significant for mild asthma patient was brought into the ER at [facility] for evaluation of hallucination and altered mentation , the patient was initially afebrile subsequently she states spike a fever and the patient did have a lumbar puncture completed 10/31/2022 On today's evaluation that is 11/02/2022, patient remains to be afebrile, the patient is more awake and alert today, the patient denies headache. Denies having any chest pain shortness of breath or cough no nausea no vomiting no abdominal pain no diarrhea Objective - Vital Signs Vital signs: Vital Signs Temp 98.2 F 11/02/22 08:00 Pulse 66 11/02/22 11:37 Resp 16 11/02/22 11:37 BP 128/85 11/02/22 11:37 Pulse Ox 98 11/02/22 11:37 FiO2 Intake & Output 11/01/22 11/02/22 11/02/22 18:59 06:59 18:59 Output Total 800 225 Balance -800 -225 Output: Urine 800 225 Other: Voiding Method Indwelling Catheter Indwelling Catheter - Exam GENERAL DESCRIPTION: Middle-age female lying in bed in no distress RESPIRATORY SYSTEM: Unlabored breathing , decreased breath sounds at bases HEART: S1 S2 regular rate and rhythm , ABDOMEN: Soft , no tenderness EXTREMITIES: No edema feet - Labs CBC & Chem 7: 11/02/22 07:52 11/02/22 07:52 Labs: Abnormal Lab Results - Last 24 Hours (Table) 11/02/22 11/02/22 Range/Units 07:52 07:52 Hgb 10.1 L (11.4-16.0) gm/dL Hct 32.1 L (34.0-46.0) % RDW 15.6 H (11.5-15.5) % Lymphocytes # 0.8 L (1.0-4.8) k/uL Chloride 109 H (98-107) mmol/L Creatinine 1.31 H (0.52-1.04) mg/dL Calcium 8.3 L (8.4-10.2) mg/dL Microbiology - Last 24 Hours (Table) 10/30/22 16:55 Blood Culture - Preliminary Blood 10/30/22 21:00 Gram Stain - Final Other - Other Wound Culture - Final Cele albicans 10/31/22 10:07 CSF Gram Stain - Preliminary Cerebral Spinal Fluid CSF Culture - Preliminary 10/31/22 06:00 Urine Culture - Final Urine,Voided Assessment and Plan (1) Fever Current Visit: Yes Status: Acute Code(s): R50.9 - FEVER, UNSPECIFIED SNOMED Code(s): 784003491 Plan: 1patient with SIRS in this patient who did have a fever elevated white count predominantly with 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
--- NOTE | 2022-11-02 16:07 | MR ---
EXAMINATION TYPE: MR brain wo/w con DATE OF EXAM: 11/02/2022 4:00 PM CLINICAL INDICATION:Female, 37 years old with history of altered mental status unknown cause; Altered mental status unknown cause COMPARISON: CT brain 10/24/2022. TECHNIQUE: Multi planar, multi sequence imaging was performed through the brain including: T1, T2, In version recovery, susceptibility weighted imaging and gradient echo imaging and Diffusion weighted im aging. The patient was then given intravenous contrast and multi planar, T1 fat-saturation images wer e obtained. IV Contrast: 8 cc Gadavist FINDINGS: The patel-white junctions, ventricular system, basal cisterns appear unremarkable. Diffusion-weighted imaging shows no evidence of restricted diffusion to suggest acute/subacute infarct. Intracranial art erial flow voids are maintained. Midline structures show no abnormality. The susceptibility weighted images do not reveal any evidence for micro-hemorrhage. There is suspected right parietal region deve lopmental venous anomaly. After administration of gadolinium, no abnormal enhancement is seen. The bone marrow signal is within normal limits. Paranasal sinuses and mastoid air cells: Mild scattered paranasal sinus disease. Visualized orbits: Orbital contents are intact. IMPRESSION: 1. No evidence of intracranial mass, acute/subacute infarct, or abnormal enhancement. 2. Right parietal developed minimal venous anomaly
[2022-11-02 16:30] LABS: Glucose,Whole Blood 95 mg/dL (70-110)
[2022-11-02] MEDS: TAMSULOSIN 0.4 MG CAP.ER.24H PO SCH (16:37)
[2022-11-02] MEDS ORDERED: FLUCONAZOLE 150 MG TAB PO STA (17:39)
[2022-11-02 19:56] LABS: Glucose,Whole Blood 121 mg/dL (70-110)
[2022-11-03 06:51] LABS: Basophils % (A) 0 %; Eosinophils # (A) 0.2 k/uL (0-0.7); Eosinophils % (A) 3 %; HGB 10.3 gm/dL (11.4-16.0); Lymphocytes # (A) 0.4 k/uL (1.0-4.8); Lymphocytes % (A) 8 %; MCH 27.5 pg (25.0-35.0); MCHC 33.1 g/dL (31.0-37.0); Monocytes # (A) 0.4 k/uL (0-1.0); Monocytes % (A) 7 %; Neutrophils # (A) 4.6 k/uL (1.3-7.7); Neutrophils % (A) 81 %; Platelet Count 291 k/uL (150-450); RBC 3.74 m/uL (3.80-5.40); RDW 15.4 % (11.5-15.5); WBC 5.7 k/uL (3.8-10.6)
[2022-11-03 07:01] LABS: Calcium 8.5 mg/dL (8.4-10.2); Potassium 3.3 mmol/L (3.5-5.1)
[2022-11-03] MEDS: busPIRone HCl 10 MG TAB PO SCH ×2 (08:07→22:14)
[2022-11-03] MEDS: MONTELUKAST 10 MG TAB PO SCH (08:07)
[2022-11-03] MEDS: HEPARIN SODIUM,PORCINE/PF 5,000 UNIT/0.5 ML SYRINGE SQ SCH ×2 (08:07→22:14)
[2022-11-03] MEDS ORDERED: POTASSIUM CHLORIDE ER 20 MEQ TAB.ER PO STA (09:59)
[2022-11-03] MEDS: ESCITALOPRAM 10 MG TAB PO SCH (10:12)
[2022-11-03 10:53] LABS: Glucose,Whole Blood 101 mg/dL (70-110)
--- NOTE | 2022-11-03 10:54 | P.PN ---
Subjective Patient is seen in follow-up for acute kidney injury. Renal function fairly stable.. Mentation appears to be at baseline. On IV fluids. Nonoliguric. No active complaints. Vital signs are stable. General: No acute distress. HEENT: Head exam is unremarkable. LUNGS: No audible rhonchi or wheezes. HEART: Rate and Rhythm are regular. ABDOMEN: Nontender. EXTREMITITES: No edema. Objective - Vital Signs Vital signs: Vital Signs Temp 98.7 F 11/03/22 07:25 Pulse 69 11/03/22 07:25 Resp 18 11/03/22 07:25 BP 134/79 11/03/22 07:25 Pulse Ox 96 11/03/22 07:25 FiO2 Intake & Output 11/02/22 11/03/22 11/03/22 18:59 06:59 18:59 Intake Total 110 Output Total 225 Balance -115 Intake: Oral 110 Output: Urine 225 Other: Voiding Method Toilet - Labs CBC & Chem 7: 11/03/22 06:08 11/03/22 06:08 Labs: Abnormal Lab Results - Last 24 Hours (Table) 11/02/22 11/03/22 11/03/22 Range/Units 19:54 06:08 06:08 RBC 3.74 L (3.80-5.40) m/uL Hgb 10.3 L (11.4-16.0) gm/dL Hct 31.0 L (34.0-46.0) % Lymphocytes # 0.4 L (1.0-4.8) k/uL Potassium 3.3 L (3.5-5.1) mmol/L Creatinine 1.25 H (0.52-1.04) mg/dL POC Glucose (mg/dL) 121 H (70-110) mg/dL Microbiology - Last 24 Hours (Table) 10/31/22 10:07 CSF Gram Stain - Preliminary Cerebral Spinal Fluid CSF Culture - Preliminary 10/30/22 16:55 Blood Culture - Preliminary Blood 10/30/22 21:00 Gram Stain - Final Other - Other Wound Culture - Final Cele albicans Assessment and Plan Plan: Assessment: 1. Acute kidney injury secondary to crystal-induced VENKATA from IV acyclovir and sepsis. Creatinine peaked at 1.51 this admission and is 1.25 today. No proteinuria on initial UA. No hydronephrosis noted on kidney ultrasound. Vancomycin level XVI.2 dated 11/01/2022. 2. Altered mental status with delirium and hallucinations. Possibly medication induced. Neurology and ID following. MRI of the brain showed no acute changes. Right parietal venous anomaly noted. Plan: Maintain IV fluids If patient will be going for CT with IV contrast today. Otherwise okay to Hep-Lock. Discussed risk of worsening renal failure post-IV contrast exposure with patient and neurology. Avoid nephrotoxins. Continue to monitor renal function and urine output.
[2022-11-03] MEDS: SODIUM CHLORIDE 0.9% 1,000 ML IV SCH ×3 (11:44→22:14)
[2022-11-03] MEDS: ACETAMINOPHEN TAB 325 MG TAB PO PRN ×2 (11:46→19:36)
[2022-11-03] MEDS: THIAMINE 100 MG/ML 2 ML VIAL IVP SCH (11:47)
--- NOTE | 2022-11-03 13:12 | CT ---
EXAMINATION TYPE: CT angio head DATE OF EXAM: 11/03/2022 11:42 AM COMPARISON: HISTORY: abnormal MRI CT DLP: 2415 mGycm Automated exposure control for dose reduction was used. TECHNIQUE: Performed without and with IV Contrast, patient injected with 100 mL of Isovue 370. . FINDINGS: Ventricular system is midline with no acute hemorrhage, mass effect or midline shift. Calvarium intac t. Cerebellar tonsils are low-lying position measuring approximately 2 mm below foramen magnum. Left vertebral artery is dominant. Vertebrobasilar system is patent but somewhat diminutive. 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 No sizable aneurysm. A prominent venous structure seen on MRI w ithin the right parietal lobe could represent a prominent vein versus a small venous angioma. Not as apparent on CT scan. No enhancing masses. Dural venous sinuses enhance normally. The changes of chronic sinusitis noted. O rbits symmetric. IMPRESSION: 1. THERE IS NO EVIDENCE OF ANEURYSM OR SIGNIFICANT INTRACRANIAL OCCLUSIVE DISEASE. FINDING NOTED BY M RI IS NOT APPARENT BY CTA. MAY REPRESENT A PROMINENT VEIN OR SMALL VENOUS ANGIOMA. 2. LOW-LYING CEREBELLAR TONSILS MEASURING APPROXIMATELY 1 TO 2 MM BELOW FORAMEN MAGNUM. NO TONSILLAR BEAKING.
--- NOTE | 2022-11-03 13:15 | P.PN ---
Subjective Progress Note Date: 11/03/22 The patient is seen at bedside and states continues to be doing well. Denies of any headache or any new neurological issues. She is hoping to be discharged so she can be with her kid. Objective - Vital Signs Vital signs: Vital Signs Temp 98.7 F 11/03/22 07:25 Pulse 64 11/03/22 08:00 Resp 18 11/03/22 08:00 BP 134/79 11/03/22 07:25 Pulse Ox 96 11/03/22 07:25 FiO2 Intake & Output 11/02/22 11/03/22 11/03/22 18:59 06:59 18:59 Intake Total 110 Output Total 225 Balance -115 Weight 81.5 kg Intake: Oral 110 Output: Urine 225 Other: Voiding Method Toilet Toilet - Exam General: Is not in acute distress. Neuro: Is awake, alert, oriented to self, place and time. Is following commands. No aphasia or neglect. Visual petersen are full to confrontation. EOM intact and no nystagmus. No facial weakness. No dysarhria Motor: Strength is 5/5 throughout. sensation: Normal. - Labs CBC & Chem 7: 11/03/22 06:08 11/03/22 06:08 Labs: Abnormal Lab Results - Last 24 Hours (Table) 11/02/22 11/03/22 11/03/22 Range/Units 19:54 06:08 06:08 RBC 3.74 L (3.80-5.40) m/uL Hgb 10.3 L (11.4-16.0) gm/dL Hct 31.0 L (34.0-46.0) % Lymphocytes # 0.4 L (1.0-4.8) k/uL Potassium 3.3 L (3.5-5.1) mmol/L Creatinine 1.25 H (0.52-1.04) mg/dL POC Glucose (mg/dL) 121 H (70-110) mg/dL Microbiology - Last 24 Hours (Table) 10/31/22 10:07 CSF Gram Stain - Preliminary Cerebral Spinal Fluid CSF Culture - Preliminary 10/30/22 16:55 Blood Culture - Preliminary Blood 10/30/22 21:00 Gram Stain - Final Other - Other Wound Culture - Final Cele albicans Assessment and Plan Assessment: Delirium likely due subsutance abuse (Kratom and phenibut). Rule out any central cause: So far EEG is negative for seizure or discharges, negative BHARTI, syphilis testing, normal Vitamin B12, folate, TSH and ammonia level. MRI Brain and CSF study is negative. 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 Otherwise MRI Brain negative. History of depression and anxiety Plan: Prolonged EEG 10/30/2022 revealed essentially sleep EEG. No clinical or electrographic seizures were recorded. No epileptiform activity was present. During the 1 very short period of increased alertness, with movement, background frequencies were seen in the 7-8 Hz range with superimposed faster, beta frequencies. Some diffuse theta range slowing was seen more anteriorly. These findings suggest mild diffuse cerebral dysfunction. Clinical correlation is recommended. CSF with 0 WBCs, 360 rbc, glucose is normal 56, protein is 31. CSF culture is no organism seen. Herpes 1/2 negative. HIV non reactive. comprehensive viral csf: negative. Ck level is mildly elevated 642 and repeat CK 355, improved. Right parietal developmental venous anomaly on MRI Brain. Otherwise MRI Brain negative. I ordered CTA head for further evaluation. Recommend patient to follow-up with Dr. Mcclain for further evaluation/management of venous anomaly. Pending result of anti NMDA. We'll defer the rest of the management to the psychiatry team Recommend patient to follow-up with neurologist as outpatient within 2 weeks. Plan discussed with the patient and primary team. UPDATE: CTA head is reported as there is no evidence for aneurysm or significant intracranial occlusive disease. Findings noted by MRI is not. By CTA. May represent a prominent vein or small venous angioma. Low-lying cerebellar tonsil measuring approximately 1-2 mm below foramen magnum. No tonsillar beaking. I discussed the case with Dr. Mcclain (interventional neurologist) and recommend outpatient angio tu rule out AVM. Otherwise no additional neurological work-up. Will sign off. Please reconsult if needed. Dr. Freedman will start neurology coverage tomorrow if needed. Time with Patient: Less than 30
--- NOTE | 2022-11-03 15:27 | P.PN ---
Subjective Progress Note Date: 11/03/22 Principal diagnosis: Fever Patient is a 37-year-old female with past medical history significant for mild asthma patient was brought into the ER at [facility] for evaluation of hallucination and altered mentation , the patient was initially afebrile subsequently she states spike a fever and the patient did have a lumbar puncture completed 10/31/2022 On today's evaluation that is 11/03/2022, patient continues to be afebrile, the patient denies headache, the patient denies having any chest pain shortness of breath or cough no nausea no vomiting no abdominal pain no diarrhea Objective - Vital Signs Vital signs: Vital Signs Temp 98.7 F 11/03/22 07:25 Pulse 64 11/03/22 08:00 Resp 18 11/03/22 08:00 BP 134/79 11/03/22 07:25 Pulse Ox 96 11/03/22 07:25 FiO2 Intake & Output 11/02/22 11/03/22 11/03/22 18:59 06:59 18:59 Intake Total 110 Output Total 225 Balance -115 Weight 81.5 kg Intake: Oral 110 Output: Urine 225 Other: Voiding Method Toilet Toilet - Exam GENERAL DESCRIPTION: Middle-age female lying in bed in no distress RESPIRATORY SYSTEM: Unlabored breathing , decreased breath sounds at bases HEART: S1 S2 regular rate and rhythm , ABDOMEN: Soft , no tenderness EXTREMITIES: No edema feet - Labs CBC & Chem 7: 11/03/22 06:08 11/03/22 06:08 Labs: Abnormal Lab Results - Last 24 Hours (Table) 11/02/22 11/03/22 11/03/22 Range/Units 19:54 06:08 06:08 RBC 3.74 L (3.80-5.40) m/uL Hgb 10.3 L (11.4-16.0) gm/dL Hct 31.0 L (34.0-46.0) % Lymphocytes # 0.4 L (1.0-4.8) k/uL Potassium 3.3 L (3.5-5.1) mmol/L Creatinine 1.25 H (0.52-1.04) mg/dL POC Glucose (mg/dL) 121 H (70-110) mg/dL Microbiology - Last 24 Hours (Table) 10/31/22 10:07 CSF Gram Stain - Preliminary Cerebral Spinal Fluid CSF Culture - Preliminary 10/30/22 16:55 Blood Culture - Preliminary Blood 10/30/22 21:00 Gram Stain - Final Other - Other Wound Culture - Final Cele albicans Assessment and Plan (1) Fever Current Visit: Yes Status: Acute Code(s): R50.9 - FEVER, UNSPECIFIED SNOMED Code(s): 124841288 Plan: 1patient with SIRS in this patient who did have a fever elevated white count predominantly with 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
[2022-11-03] MEDS: TAMSULOSIN 0.4 MG CAP.ER.24H PO SCH (17:35)
--- NOTE | 2022-11-03 21:14 | P.PN ---
Subjective From previous records Patient is a 37-year-old female without significant past medical history was admitted to the hospital due to aggressive behavior and delirium/psychosis on 10/19/2022. Patient was initially admitted to mental health unit and is being treated. Yesterday evening patient became delirious and hallucinating with altered sensorium. Patient received Zyprexa dose for agitation about 30 minutes prior to this episode. rapid response team was called and patient was eventually transferred to medical floor for further management. Apparently patient has not been sleeping well and does not stressful situation and ongoing foreclosure of her home. No prior history of psychiatric admission. Patient is currently not on any medications at home. She is using kratom and Phenibut at home due to her anxiety. Does vape. Denies any IV injections illicit drug use. CT head showed no acute intracranial process. Air-fluid levels within the right maxillary sinus. Correlate for acute sinusitis. Laboratory data showed WBC 5.4, hemoglobin 10.7 platelets 329 sodium 138 potassium 3.3 chloride 97 bicarb is 31 BUN 21 and creatinine 0.75 and blood sugar 101 liver enzymes are not elevated. UDS on admission positive for propoxyphene on, amphetamines and benzodiazepines. Urinalysis today showed cloudy with trace ketones and nitrite positive and WBCs 8. 10/26/2022 Patient is currently lying in the bed. Still agitated and paradorsal mental status is waxing and waning. Otherwise patient has been afebrile. Continued on as needed Prolixin IM every 6 hourly for agitation. Could not provide any history at this time. Laboratory showed WBC 5.4 hemoglobin 10.8 and platelets 315, sodium 141 potassium 4.0 chloride 102 bicarb is 29 BUN 11 and creatinine 0.6. Neurology recommends EEG which showed background slowing suggestive of mild enc ephalopathy. No seizure discharges. MRI of the brain to rule out central causes. CT head negative. Patient was started on thiamine IV daily. 10/27/2022 Patient is currently lying in the bed. Mentation remains the same. Hallucinating and talking to herself. Awake alert oriented x0. Does not follow commands. Patient was able to void spontaneously. Febrile. Continued on ceftriaxone for possible urinary tract infection. Patient is not cooperative for the meeting including MRI. Psychiatry and neurology is on board. Bedside sitter is in place. 10/28/2022. Patient's mentation remains the same. Does not follow commands. Patient does have soft restraints. Bedside sitter is in place. Patient was having diffuse muscle twitches and spasms and abnormal eye movements. Discussed with psychiatry team. Patient has been having with severe withdrawal symptoms for the past 10 days. Possible underlying paraneoplastic/autoimmune pathology is also being considered. Patient was given a dose of Valium IV x110 mg. Was able to get CT of abdomen pelvis without contrast however most from artifact aspect of the quality. MRI with contrast is recommended if there is further concern for ovarian t eratoma leading to anti-NMDA receptor encephalitis. 10/29/2022 Patient is more agitated and currently under four-point restraints. Mentation remains the same. Today patient received 2 mg of Ativan prior to lumbar puncture and had to abort the procedure since the patient is restless and agitated. Will discuss with ICU team since patient may require intubation and sedation to to proceed with lumbar puncture. Repeat EEG was ordered as per neurology. Urine culture showed normal rose. Ceftriaxone will be discontinued. Completed 5 days of antibiotics. Laboratory data showed WBC 12.2 hemoglobin 12.0 and platelets 400 sodium 141 potassium 3.9 chloride 106 bicarb is 23 BUN 10 and creatinine 0.65 and CRP less than 5 CPK level 642 I'm resuming the care of the patient today on 10/2922 This is a 37 years old female who was initially admitted to the site units for possible psychosis and delirium however she became more altered mental status and ID team was called and patient was transferred to the general medical floor. Patient is suspected to have metabolic/toxic encephalopathy secondary to substance abuse and withdrawal as patient was using Kratom and phenibut. Patient Patient was closely by psychiatry and neurology service was treated with benzodiazepines, as well as baclofen, Cogentin and Prolixin. Patient remained confused and she was agitated, she has to be placed on the restrained. This morning I discussed the case with the bedside nurse who told me this is the first time she is calm down significantly, patient today during my evaluation she was lying in bed, sleeping, confused, calm, looks relaxed. No abnormal movements. No restraints. She has mild bruises on her legs. Looks healing. No other information was obtained from the patient. She is hemodynamically stable, however she had fever 100 and 1. 2 yesterday and 100.3 one day earlier. Also patient has worsening leukocytosis from 5.5 up to 12 K up to 15.6 k today. Lumbar puncture could not be obtained because of her agitated status also MRI of the brain is pending, today is not available because its holiday In this facility. Her sugar was slightly low and improved with oral juice, therefore we switched her normal saline up to D5 normal saline at 75 mL/h I am going to increase the rate to 100 mL per hour. Also will increase her Accu-Chek every 4 hours and give D50 when necessary for glucose less than 80 mg per dcL Because of her fever and leukocytosis we consulted infectious disease team was going to order it may take was suspected to have UTI and she was placed on ceftriaxone. But it was stopped yesterdat because urine culture came back negative. We ordered a chest x-ray which was unremarkable. Sitter at bedside 10/31/2022 Patient today showing significant improvement, in the morning she was still tended however this evening she has dramatic improvement, she is awake and alert and interactive, she is oriented and she is complaining from feeling tired. No other specific symptoms. Patient is hemodynamically stable. Fever started improving (99.8 today ) and patient mentation improved after she was started on antibiotic Creatinine went up to 1.5, bladder scan showing residual urine more than 300, discussed with staff to place Ramires catheter Check renal ultrasound ordered and pending, also will consult archival records clerk Patient had lumbar puncture done today and result is pending. Also MRI of the brain and anti-NMDA test is pending She remains on IV vancomycin and ceftriaxone per ID team. A second liver was stopped. Also there is some report of vaginal discharge, we sent this for chlamydia, gonorrhea fungal infection and genital culture which are pending as well. Sitter remains at bedside 11/01/2022 Improvement last night she is fully awake and oriented, she knows she is in [facility], she did not know the year 2022. She is disoriented to the date and months and to persons She denies any complaints, no headache dizziness weakness or numbness. No other symptoms like chest pain or abdominal pain, no urinary symptoms Ramires catheter and replaced. MRI of the brain is pending, and the result of CSF is pending Creatinine stable 1.5 today. Leukocytosis improving 12.5, temperature is coming down to 99.8. Patient remains on ceftriaxone and IV vancomycin She remains on normal saline at 100 mL per hour. Renal ultrasound showing no hydronephrosis 11/02/2022 patient mentation improved Patient denies prior symptoms She feels tired and generally weak Still has Ramires catheter Creatinine improving down to 1.3 MRI of the pain and anti-NMDA are pending. Vancomycin was discontinued, patient is on ceftriaxone 2 g thiamine 100 mL per h our admission similar to 11/03/2022 Patient today she was feeling better, she's been fully awake and oriented, more than 48 hours She denies specific symptoms. Get up and go test is normal, gait is normal. Patient told me today in detail history, she's been taking phemobut for the last 2 years under supervision of her PCP Dr. Yang to help her with anxiety however over the last 6 months she was taken with continuously but she felt more dependent on the medication and developing tolerance to the medication requiring more doses and therefore she talked to her PCP and she stopped this medication abruptly, at the same time she was taking kraum for insomnia and she stopped that suddenly as well and agitated and she was admitted to the psych unit before she was transferred to the general medical floor as recorded previously. Looks like patient was undergoing withdrawal symptoms from this medication is one of the differential diagnosis. 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 I discussed the case in details with neurologist and he recommended to do CTA of the brain, which shows no evidence of aneurysm or significant intracranial occlusive disease findings noted by MRI is not as apparent by CTA. Neurologist discussed the case with Dr. Mcclain (interventional neurologist) and recommend outpatient angio (rule out AVM) Because her kidney function is not completely resolved back to normal I discussed the case in details with archival records clerk recommended to restart her normal saline at 100 mL per hour and check creatinine tomorrow I discussed this plan with the patient including risk of worsening renal function and the knee distended that more to monitor creatinine and the patient verbalized understanding and acceptance she remains on Rocephin under care off ID team Psychiatric also recommended to continue BuSpar, trazodone as needed for sleep Psychiatric creatinine neurology services signed off currently Objective - Vital Signs Vital signs: Vital Signs Temp 98.5 F 11/03/22 14:00 Pulse 85 11/03/22 14:00 Resp 13 11/03/22 14:00 BP 116/73 11/03/22 14:00 Pulse Ox 95 11/03/22 14:00 FiO2 Intake & Output 11/02/22 11/03/22 11/03/22 18:59 06:59 18:59 Intake Total 110 Output Total 225 Balance -115 Weight 81.5 kg Intake: Oral 110 Output: Urine 225 Other: Voiding Method Toilet Toilet - Exam -GENERAL: The patient is awake alert, oriented and more interactive, not in any acute distress. Well developed, well nourished. HEENT: Pupils are round and equally reacting to light. EOMI. No scleral icterus. No conjunctival pallor. Normocephalic, atraumatic. No pharyngeal erythema. No thyromegaly. CARDIOVASCULAR: S1 and S2 present. No murmurs, rubs, or gallops. PULMONARY: Chest is clear to auscultation, no wheezing . no crackles. ABDOMEN: Soft, nontender, nondistended, normoactive bowel sounds. No palpable organomegaly. MUSCULOSKELETAL: No joint swelling or deformity. EXTREMITIES: No cyanosis, clubbing, or pedal edema. NEUROLOGICAL: Gross neurological examination did not reveal any focal deficits. SKIN: No rashes. no petechiae. - Labs CBC & Chem 7: 11/03/22 06:08 11/03/22 06:08 Labs: Abnormal Lab Results - Last 24 Hours (Table) 11/02/22 11/03/22 11/03/22 Range/Units 19:54 06:08 06:08 RBC 3.74 L (3.80-5.40) m/uL Hgb 10.3 L (11.4-16.0) gm/dL Hct 31.0 L (34.0-46.0) % Lymphocytes # 0.4 L (1.0-4.8) k/uL Potassium 3.3 L (3.5-5.1) mmol/L Creatinine 1.25 H (0.52-1.04) mg/dL POC Glucose (mg/dL) 121 H (70-110) mg/dL Microbiology - Last 24 Hours (Table) 10/30/22 21:00 Fungal Culture - Preliminary Other - Other Cele albicans 10/31/22 10:07 CSF Gram Stain - Preliminary Cerebral Spinal Fluid CSF Culture - Preliminary 10/30/22 16:55 Blood Culture - Preliminary Blood Assessment and Plan Assessment: -Acute delirium/hallucinations likely due to withdrawal from psychiatry substance use.(Kratom and Phenibut), Possible paraneoplastic/autoimmune etiologies is also being considered. Rule out intracranial infection -Metabolic/toxic encephalopathy secondary to above. Improved -Hypoglycemia secondary to above. Improved (patient currently able to eat and drink) -Acute kidney injury with acute urinary retention -History of anxiety/depression -Possible urinary tract infection -Acute maxillary sinusitis as per CT head -History of sinus surgery -Acute urinary retention. resolved Plan: Continue Rocephin as per ID team recommendation Patient may require follow-up outpatient for angio imaging of the brain to rule out AVM. continue BuSpar, trazodone as needed for sleep for psychiatrist. Psychiatry and neurology services signed off the case. Patient will need follow-up outpatient psychiatry and neurology service. Continue with normal sinus tended millimeter per hour and monitor creatinine tomorrow, case discussed with nephrology service Follow up anti- NMDA test Labs and medication were reviewed.. Continue same treatment. Continue with symptomatic treatment. Resume home medication. Monitor labs and vitals. DVT and GI prophylaxis. Further recommendations as per clinical course of the patient DVT prophylaxis: Subcutaneous heparin GI Prophylaxis: Pepcid Possible discharge in 24-48 hours if she keeps improving
[2022-11-03] MEDS ORDERED: PSEUDOEPHEDRINE 30 MG TAB PO ONE (22:10)
[2022-11-04] MEDS ORDERED: MELATONIN 5 MG TABLET PO ONE (02:20)
[2022-11-04 06:47] LABS: African American GFR (CKD) 69 (>60 ml/min/1.73 sqM); Anion Gap 9 mmol/L; Blood Urea Nitrogen 6 mg/dL (7-17); Calcium 8.4 mg/dL (8.4-10.2); Carbon Dioxide 27 mmol/L (22-30); Chloride 102 mmol/L (98-107); Glucose 96 mg/dL (74-99); Magnesium 1.6 mg/dL (1.6-2.3); Non-African American GFR(CKD) 60 (>60 ml/min/1.73 sqM); Potassium 3.4 mmol/L (3.5-5.1); Sodium 138 mmol/L (137-145)
[2022-11-04] MEDS: HEPARIN SODIUM,PORCINE/PF 5,000 UNIT/0.5 ML SYRINGE SQ SCH (08:50)
[2022-11-04] MEDS: busPIRone HCl 10 MG TAB PO SCH (08:51)
[2022-11-04] MEDS: ESCITALOPRAM 10 MG TAB PO SCH (08:51)
[2022-11-04] MEDS: MONTELUKAST 10 MG TAB PO SCH (08:51)
[2022-11-04] MEDS: THIAMINE 100 MG/ML 2 ML VIAL IVP SCH (10:15)
[2022-11-04] MEDS: SODIUM CHLORIDE 0.9% 1,000 ML IV SCH (10:30)
[2022-11-04] MEDS: POTASSIUM CHLORIDE ER 20 MEQ TAB.ER PO SCH ×2 (12:38→13:13)
--- NOTE | 2022-11-04 13:59 | P.DS ---
Providers Date of admission: 10/27/22 15:17 Expected date of discharge: 11/04/22 Attending physician: Susannah Ledesma Consults: 10/25/22 09:29 Consult Physician Routine Consulting Provider: Jere Mccarty Consult Reason/Comments: Psychosis Do you want consulting provider notified?: Yes Placement Type Exists?: Yes 10/25/22 13:01 Consult Physician Routine Consulting Provider: Hector Maher Consult Reason/Comments: AMS Do you want consulting provider notified?: Yes, Notify in am Placement Type Exists?: Yes 10/30/22 12:54 Consult Physician Routine Consulting Provider: Patricia Ken Consult Reason/Comments: fever Do you want consulting provider notified?: Yes Consult to Anesthesia Routine Consulting Provider: Anesthesia,Services Consult Reason/Comments: general anesthesia for LP 10/30/22 13:20 Consult Physician Routine Consulting Provider: Marcos Kraft Consult Reason/Comments: general anesthesia for LP Do you want consulting provider notified?: Yes 10/31/22 21:39 Consult Physician Urgent Consulting Provider: Jackson Pineda Consult Reason/Comments: george Do you want consulting provider notified?: Yes, Notify in am Primary care physician: Stated None Hospital Course: * 37-year-old female without significant past medical history was admitted to the hospital due to aggressive behavior and delirium/psychosis on 10/19/2022. Patient was initially admitted to mental health unit and is being treated. Yesterday evening patient became delirious and hallucinating with altered sensorium. Patient received Zyprexa dose for agitation about 30 minutes prior to this episode. rapid response team was called and patient was eventually transferred to medical floor for further management. * Apparently patient has not been sleeping well and does not stressful situation and ongoing foreclosure of her home. No prior history of psychiatric admission. Patient is currently not on any medications at home. * She is using kratom and Phenibut at home due to her anxiety. Does vape. Denies any IV injections illicit drug use. * CT head showed no acute intracranial process. Air-fluid levels within the right maxillary sinus. Correlate for acute sinusitis. * Laboratory data showed WBC 5.4, hemoglobin 10.7 platelets 329 sodium 138 potassium 3.3 chloride 97 bicarb is 31 BUN 21 and creatinine 0.75 and blood sugar 101 liver enzymes are not elevated. * UDS on admission positive for propoxyphene on, amphetamines and benzodiazepines. * Urinalysis today showed cloudy with trace ketones and nitrite positive and WBCs 8. 10/26/2022 Patient is currently lying in the bed. Still agitated and paradorsal mental status is waxing and waning. Otherwise patient has been afebrile. Continued on as needed Prolixin IM every 6 hourly for agitation. Could not provide any history at this time. Laboratory showed WBC 5.4 hemoglobin 10.8 and platelets 315, sodium 141 potassium 4.0 chloride 102 bicarb is 29 BUN 11 and creatinine 0.6. Neurology recommends EEG which showed background slowing suggestive of mild encephalopathy. No seizure discharges. MRI of the brain to rule out central causes. CT head negative. Patient was started on thiamine IV daily. 10/27/2022 Patient is currently lying in the bed. Mentation remains the same. Hallucinating and talking to herself. Awake alert oriented x0. Does not follow commands. Patient was able to void spontaneously. Febrile. Continued on ceftriaxone for possible urinary tract infection. Patient is not cooperative for the meeting including MRI. Psychiatry and neurology is on board. Bedside sitter is in place. 10/28/2022. Patient's mentation remains the same. Does not follow commands. Patient does have soft restraints. Bedside sitter is in place. Patient was having diffuse muscle twitches and spasms and abnormal eye movements. Discussed with psychiatry team. Patient has been having with severe withdrawal symptoms for the past 10 days. Possible underlying paraneoplastic/autoimmune pathology is also being considered. Patient was given a dose of Valium IV x110 mg. Was able to get CT of abdomen pelvis without contrast however most from artifact aspect of the quality. MRI with contrast is recommended if there is further concern for ovarian teratoma leading to anti-NMDA receptor encephalitis. 10/29/2022 Patient is more agitated and currently under four-point restraints. Mentation remains the same. Today patient received 2 mg of Ativan prior to lumbar puncture and had to abort the procedure since the patient is restless and agitated. Will discuss with ICU team since patient may require intubation and sedation to to proceed with lumbar puncture. Repeat EEG was ordered as per neurology. Urine culture showed normal rose. Ceftriaxone will be discontinued. Completed 5 days of antibiotics. Laboratory data showed WBC 12.2 hemoglobin 12.0 and platelets 400 sodium 141 potassium 3.9 chloride 106 bicarb is 23 BUN 10 and creatinine 0.65 and CRP less than 5 CPK level 642 I'm resuming the care of the patient today on 10/2922 This is a 37 years old female who was initially admitted to the site units for possible psychosis and delirium however she became more altered mental status and ID team was called and patient was transferred to the general medical floor. Patient is suspected to have metabolic/toxic encephalopathy secondary to substance abuse and withdrawal as patient was using Kratom and phenibut. Patient Patient was closely by psychiatry and neurology service was treated with benzodiazepines, as well as baclofen, Cogentin and Prolixin. Patient remained confused and she was agitated, she has to be placed on the restrained. This morning I discussed the case with the bedside nurse who told me this is the first time she is calm down significantly, patient today during my evaluation she was lying in bed, sleeping, confused, calm, looks relaxed. No abnormal movements. No restraints. She has mild bruises on her legs. Looks healing. No other information was obtained from the patient. She is hemodynamically stable, however she had fever 100 and 1. 2 yesterday and 100.3 one day earlier. Also patient has worsening leukocytosis from 5.5 up to 12 K up to 15.6 k today. Lumbar puncture could not be obtained because of her agitated status also MRI of the brain is pending, today is not available because its holiday In this facility. Her sugar was slightly low and improved with oral juice, therefore we switched her normal saline up to D5 normal saline at 75 mL/h I am going to increase the rate to 100 mL per hour. Also will increase her Accu-Chek every 4 hours and give D50 when necessary for glucose less than 80 mg per dcL Because of her fever and leukocytosis we consulted infectious disease team was going to order it may take was suspected to have UTI and she was placed on ceftriaxone. But it was stopped yesterdat because urine culture came back negative. We ordered a chest x-ray which was unremarkable. Sitter at bedside 10/31/2022 Patient today showing significant improvement, in the morning she was still tended however this evening she has dramatic improvement, she is awake and alert and interactive, she is oriented and she is complaining from feeling tired. No other specific symptoms. Patient is hemodynamically stable. Fever started improving (99.8 today ) and patient mentation improved after she was started on antibiotic Creatinine went up to 1.5, bladder scan showing residual urine more than 300, discussed with staff to place Ramires catheter Check renal ultrasound ordered and pending, also will consult curtain framer Patient had lumbar puncture done today and result is pending. Also MRI of the brain and anti-NMDA test is pending She remains on IV vancomycin and ceftriaxone per ID team. A second liver was stopped. Also there is some report of vaginal discharge, we sent this for chlamydia, gonorrhea fungal infection and genital culture which are pending as well. Sitter remains at bedside 11/01/2022 Improvement last night she is fully awake and oriented, she knows she is in [facility], she did not know the year 2022. She is disoriented to the date and months and to persons She denies any complaints, no headache dizziness weakness or numbness. No other symptoms like chest pain or abdominal pain, no urinary symptoms Ramires catheter and replaced. MRI of the brain is pending, and the result of CSF is pending Creatinine stable 1.5 today. Leukocytosis improving 12.5, temperature is coming down to 99.8. Patient remains on ceftriaxone and IV vancomycin She remains on normal saline at 100 mL per hour. Renal ultrasound showing no hydronephrosis 11/02/2022 patient mentation improved Patient denies prior symptoms She feels tired and generally weak Still has Ramires catheter Creatinine improving down to 1.3 MRI of the pain and anti-NMDA are pending. Vancomycin was discontinued, patient is on ceftriaxone 2 g thiamine 100 mL per hour admission similar to 11/03/2022 Patient today she was feeling better, she's been fully awake and oriented, more than 48 hours She denies specific symptoms. Get up and go test is normal, gait is normal. Patient told me today in detail history, she's been taking phemobut for the last 2 years under supervision of her PCP Dr. Yang to help her with anxiety however over the last 6 months she was taken with continuously but she felt more dependent on the medication and developing tolerance to the medication requiring more doses and therefore she talked to her PCP and she stopped this medication abruptly, at the same time she was taking kraum for insomnia and she stopped that suddenly as well and agitated and she was admitted to the psych unit before she was transferred to the general medical floor as recorded previously. Looks like patient was undergoing withdrawal symptoms from this medication is one of the differential diagnosis. 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 I discussed the case in details with neurologist and he recommended to do CTA of the brain, which shows no evidence of aneurysm or significant intracranial occlusive disease findings noted by MRI is not as apparent by CTA. Neurologist discussed the case with Dr. Mcclain (interventional neurologist) and recommend outpatient angio (rule out AVM) Because her kidney function is not completely resolved back to normal I discussed the case in details with curtain framer recommended to restart her normal saline at 100 mL per hour and check creatinine tomorrow I discussed this plan with the patient including risk of worsening renal function and the knee distended that more to monitor creatinine and the patient verbalized understanding and acceptance she remains on Rocephin under care off ID team Psychiatric also recommended to continue BuSpar, trazodone as needed for sleep Psychiatric creatinine neurology services signed off currently 11/04/2022 Patient seen by Psych cleared, Nephrology cleared for DC Poatassium replaced Meds provided Plan - Discharge Summary New Discharge Prescriptions: New Amoxic-Pot Clav 875-125Mg [Augmentin 875-125] 1 each PO Q12HR 5 Days #10 tab busPIRone HCl [Buspar] 10 mg PO BID #30 tab Escitalopram [Lexapro] 10 mg PO DAILY #30 tab traZODone HCL [Desyrel] 50 mg PO HS PRN #30 tab PRN Reason: Insomnia Continue LORazepam [Ativan] 0.5 mg PO DAILY PRN PRN Reason: Anxiety Cholecalciferol (Vitamin D3) [Decara (50,000 Iu)] 1,250 mcg PO WEEKLY Pseudoephedrine 12Hr [Sudafed 12 Hour] 120 mg PO Q12HR PRN PRN Reason: Congestion Albuterol Inhaler [Ventolin Hfa Inhaler] 2 puff INHALATION RT-Q6H PRN PRN Reason: Shortness Of Breath Montelukast [Singulair] 10 mg PO DAILY Discontinued Dextroamphetamine/Amphetamine [Adderall] 20 mg PO DAILY Kratom (Supplement) 1 dose PO DAILY PRN PRN Reason: Pain Escitalopram [Lexapro] 20 mg PO DAILY Discharge Medication List Albuterol Inhaler [Ventolin Hfa Inhaler] 2 puff INHALATION RT-Q6H PRN 10/19/22 [History] Cholecalciferol (Vitamin D3) [Decara (50,000 Iu)] 1,250 mcg PO WEEKLY 10/19/22 [History] LORazepam [Ativan] 0.5 mg PO DAILY PRN 10/19/22 [History] Montelukast [Singulair] 10 mg PO DAILY 10/19/22 [History] Pseudoephedrine 12Hr [Sudafed 12 Hour] 120 mg PO Q12HR PRN 10/19/22 [History] Amoxic-Pot Clav 875-125Mg [Augmentin 875-125] 1 each PO Q12HR 5 Days #10 tab 11/04/22 [Rx] Escitalopram [Lexapro] 10 mg PO DAILY #30 tab 11/04/22 [Rx] busPIRone HCl [Buspar] 10 mg PO BID #30 tab 11/04/22 [Rx] traZODone HCL [Desyrel] 50 mg PO HS PRN #30 tab 11/04/22 [Rx] Follow up Appointment(s)/Referral(s): Nikki Mcclain MD [STAFF PHYSICIAN] - 1 Week (Right parietal venous anamoly. Need Diagnostic cerebral angiogram to rule out AVM.) Randall Hackett MD [Medical Doctor] - 2 Weeks (neurologist ) Jackson Pineda DO [STAFF PHYSICIAN] - 2 Weeks Activity/Diet/Wound Care/Special Instructions: Follow up with psychiatrist, for example PMH upon discharge in 1-2 weeks, please call to make appointment Discharge/Stand Alone Forms: Anes Pain/Wismer Instructions, Outpatient Counseling Discharge Disposition: HOME SELF-CARE
[2022-11-04 14:44] VITALS: BP 120/74; PULSE 69; RESP 17; TEMP 98
--- NOTE | 2022-11-04 15:43 | P.PN ---
Subjective Progress Note Date: 11/04/22 Follow-up for acute kidney injury. Objective - Vital Signs Vital signs: Vital Signs Temp 98.0 F 11/04/22 14:00 Pulse 69 11/04/22 14:00 Resp 17 11/04/22 14:00 BP 120/74 11/04/22 14:00 Pulse Ox 97 11/04/22 14:00 FiO2 Intake & Output 11/03/22 11/04/22 11/04/22 18:59 06:59 18:59 Intake Total 800 Balance 800 Weight 81.5 kg Intake: Oral 800 Other: Voiding Method Toilet Toilet # Voids 5 2 # Bowel Movements 1 - Exam No acute distress S1-S2 heard Lungs clear No edema - Labs CBC & Chem 7: 11/03/22 06:08 11/04/22 05:46 Labs: Abnormal Lab Results - Last 24 Hours (Table) 11/04/22 Range/Units 05:46 Potassium 3.4 L (3.5-5.1) mmol/L BUN 6 L (7-17) mg/dL Creatinine 1.18 H (0.52-1.04) mg/dL Microbiology - Last 24 Hours (Table) 10/30/22 16:55 Blood Culture - Preliminary Blood 10/30/22 21:00 Anaerobic Culture - Final Other - Other Anaerobic Gm Negative Bacilli Anaerobic Gm Negative Bacilli#2 10/30/22 21:00 Fungal Culture - Preliminary Other - Other Cele albicans Assessment and Plan Assessment: #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 #2 encephalopathy Plan: #1 renal function stable. Stop IV fluids. #2 avoid nephrotoxic agents and hypotensive episodes.
[2022-11-04] MEDS ORDERED: AMOXIC-POT CLAV 875-125MG 1 EACH TAB PO SCH (21:00)
--- NOTE | 2022-11-08 12:28 | CDI ---
Documentation Clarification Form Date: 11/08/2022 11:55:59 AM From: Cyn Billings Admit Date: 10/27/2022 03:17:00 PM Patient Name: Sussy Lomeli Visit Number: [id number] Discharge Date: 11/04/2022 03:49:00 PM ATTENTION: The Clinical Documentation Specialists (CDI) and [facility] Coding Staff appreciate your assistance in clarifying documentation. Please respond to the clarification below the line at the bottom and electronically sign. The CDI & [facility] Coding staff will review the response and follow-up if needed. Please note: Queries are made part of the Legal Health Record. If you have any questions, please contact the author of this message via ITS. Dr. Gomez Jesus Manuel Your patient has SIRS documented in Consult note 10/30 and progress notes 10/31 11/03 and Sepsis documented in consult note 11/01 and progress notes 11/02 - 11/03. Based on this information and the findings below, please clarify between SIRS and Sepsis. History/Risk Factors: Patient is a 37 year old female who has a history of taking Kratom and Phenibut, she has depression and anxiety, smokes nicotine vape regularly Clinical Indicators: patient was admitted to the mental health unit 10/24/22, had a decline in mental status and was transitioned to medical inpatient 10/27/22. Patient was diagnosed with Delirium likely due to substance abuse withdrawal from Kratom and Phenibut. Patient was taking phenibut for 2 years, developed an intolerance, but stopped taking the medication abruptly, was also taking Kratom for insomnia, and stopped this medication abruptly. Experienced withdrawal, delirium, and agitation. 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 Is there an additional diagnosis that is clinically appropriate for this patient? [ ] SIRS, due to withdrawal, without acute organ dysfunction - no sepsis [ x ] SIRS, due to withdrawal, with Acute Kidney Injury - no sepsis [ ] Sepsis [ ] Other, please specify [ ] Unable to determine SIRS Criteria: 2 or more of the following may indicate SIRS -Temperature < 96.8F(36C) or > 101.0F (38.3C) -Heart Rate > 90 bpm -Respiratory Rate > 20 breaths/min or PaCO2 < 32 mmHg -White Blood Cell Count > 12,000 or < 4,000 cells/mm3 or > 10% bands MTDD
--- NOTE | 2022-11-10 15:34 | P.PN ---
Subjective Progress Note Date: 11/04/22 Principal diagnosis: Fever Patient is a 37-year-old female with past medical history significant for mild asthma patient was brought into the ER at [facility] for evaluation of hallucination and altered mentation , the patient was initially afebrile subsequently she states spike a fever and the patient did have a lumbar puncture completed 10/31/2022 On today's evaluation that is 11/04/2022, patient denies any fever and chills, the patient denies headache, the patient denies having any chest pain shortness of breath or cough no nausea no vomiting no abdominal pain no diarrhea, there is a wound cultures in the computer however the patient denies having any wound and nursing staff has no idea where the culture were taken from Objective - Vital Signs Vital signs: Vital Signs Temp 97.8 F 11/04/22 07:29 Pulse 68 11/04/22 07:29 Resp 16 11/04/22 07:29 BP 142/90 11/04/22 07:29 Pulse Ox 97 11/04/22 07:29 FiO2 Intake & Output 11/03/22 11/04/22 11/04/22 18:59 06:59 18:59 Intake Total 800 Balance 800 Weight 81.5 kg Intake: Oral 800 Other: Voiding Method Toilet Toilet # Voids 5 2 # Bowel Movements 1 - Exam GENERAL DESCRIPTION: Middle-age female lying in bed in no distress RESPIRATORY SYSTEM: Unlabored breathing , decreased breath sounds at bases HEART: S1 S2 regular rate and rhythm , ABDOMEN: Soft , no tenderness EXTREMITIES: No edema feet - Labs CBC & Chem 7: 11/03/22 06:08 11/04/22 05:46 Labs: Abnormal Lab Results - Last 24 Hours (Table) 11/04/22 Range/Units 05:46 Potassium 3.4 L (3.5-5.1) mmol/L BUN 6 L (7-17) mg/dL Creatinine 1.18 H (0.52-1.04) mg/dL Microbiology - Last 24 Hours (Table) 10/30/22 16:55 Blood Culture - Preliminary Blood 10/30/22 21:00 Anaerobic Culture - Final Other - Other Anaerobic Gm Negative Bacilli Anaerobic Gm Negative Bacilli#2 10/30/22 21:00 Fungal Culture - Preliminary Other - Other Cele albicans 05/30/23 10:07 CSF Gram Stain - Preliminary Cerebral Spinal Fluid CSF Culture - Preliminary Assessment and Plan (1) Fever Status: Acute Code(s): R50.9 - FEVER, UNSPECIFIED SNOMED Code(s): 745861856 Plan: 1patient with SIRS in this patient who did have a fever elevated white count predominantly with 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 Consider short course of oral Augmentin on discharge and close outpatient follow-up discussed with the admitting team Time with Patient: Less than 30
== END 2022-11-04 15:49 | disposition home or self-care (01) | DRG 896 ==
LOC: 3SCARD 18:54 → INTOOBSV 18:54 → OBSVTOIN 10-27 15:17 → 3SCARD 10-29 01:41 → 4SSUR 11-02 23:55
PROVIDERS: ADMIT Internal Medicine; ATTEND Internal Medicine
PROC: 00JU3ZZ Inspection of Spinal Canal, Percutaneous Approach (ICD-10-PCS; principal; 2022-10-29)
PROC: 009U3ZX Drainage of Spinal Canal, Percutaneous Approach, Diagnostic (ICD-10-PCS; 2022-10-31)
DX: F19.131 Other psychoactive substance abuse with withdrawal delirium (principal); G92.8 Other toxic encephalopathy; Q28.3 Other malformations of cerebral vessels; R65.11 Systemic inflammatory response syndrome (SIRS) of non-infectious origin with acute organ dysfunction; N17.9 Acute kidney failure, unspecified; F23 Brief psychotic disorder; F41.9 Anxiety disorder, unspecified; F32.A Depression, unspecified; T37.5X5A Adverse effect of antiviral drugs, initial encounter; E16.2 Hypoglycemia, unspecified; F17.290 Nicotine dependence, other tobacco product, uncomplicated; N14.19 Nephropathy induced by other drugs, medicaments and biological substances; T50.995A Adverse effect of other drugs, medicaments and biological substances, initial encounter; R45.1 Restlessness and agitation; M79.2 Neuralgia and neuritis, unspecified; Z53.29 Procedure and treatment not carried out because of patient's decision for other reasons; D72.829 Elevated white blood cell count, unspecified; J01.00 Acute maxillary sinusitis, unspecified; J45.909 Unspecified asthma, uncomplicated; R32 Unspecified urinary incontinence; R33.9 Retention of urine, unspecified; Z20.822 Contact with and (suspected) exposure to COVID-19; G47.00 Insomnia, unspecified; E66.9 Obesity, unspecified; Z68.29 Body mass index [BMI] 29.0-29.9, adult; M79.7 Fibromyalgia; G43.909 Migraine, unspecified, not intractable, without status migrainosus; Z79.899 Other long term (current) drug therapy; Z91.040 Latex allergy status; Z56.0 Unemployment, unspecified; Z63.0 Problems in relationship with spouse or partner; Z78.1 Physical restraint status
CPT/HCPCS: 62270; 70450; 70496; 70553; 71045; 74176; 76770; 76856; 80048; 80053; 80076; 80202; 81001; 82140; 82164; 82550; 82565; 82607; 82746; 82945; 83735; 84145; 84157; 84443; 84703; 85025; 85027; 85610; 85652; 85730; 86038; 86140; 86225; 86255; 86695; 86696; 86780; 87040; 87070; 87075; 87086; 87102; 87205; 87252; 87390; 87491; 87496; 87498; 87502; 87529; 87591; 87635; 87798; 88108; 89050; 95700; 95713; 95816